=== PATIENT | female | born 1955 | race Caucasian/White ===

== ENCOUNTER → 2020-03-16 14:05 | Outpatient (BNVA) | payer OTHER, SELFPAY | PROVIDERS: PCP Internal Medicine; Visit Provider Nurse Practitioner | DX: Z76.89 Persons encountering health services in other specified circumstances (principal) ==

== ENCOUNTER 2020-07-06 07:25 | Outpatient (REF) | payer OTHER, SELFPAY ==
[2020-07-06 08:09] LABS: MANUAL DIFF FLAG NO
[2020-07-06 08:22] LABS: Basophils Percent Auto 0.5 % (0-2); Eosinophils Absolute Auto 0.1 X10*3/uL (0.0-0.4); Eosinophils Percent Auto 1.8 % (0-4); Hematocrit 40.9 % (37-47); Hemoglobin 13.2 g/dl (12.0-16.0); Imm Gran Abs Auto 0.01 X10*3/uL (0.00-0.03); Imm Gran Pct Auto 0.2 % (0.0-0.4); Lymphocytes Percent Auto 33.6 % (20-40); Mean Corpuscular HGB Conc 32.3 g/dl (31.0-35.0); Mean Corpuscular Hemoglobin 32.9 pg (27.0-33.0); Mean Platelet Volume 11.5 fL (9.4-12.3); Monocytes Absolute Auto 0.5 X10*3/uL (0.1-1.2); Monocytes Percent Auto 8.9 % (2-11); Neutrophils Absolute Auto 3.3 X10*3/uL (2.0-8.3); Platelet Count 280 X10*3/uL (160-400); Red Blood Count 4.01 X10*6/uL (4.20-5.50); Red Cell Distribution Width 12.7 % (11.0-16.0)
[2020-07-06 08:41] LABS: Alanine Aminotransferase 26 U/L (0-31); Albumin Level 4.3 g/dL (3.5-5.0); Alkaline Phosphatase 59 U/L (39-117); Anion Gap 12 (12-20); Aspartate Amino Transferase 22 U/L (5-31); Bilirubin Total 0.9 mg/dL (0.0-1.0); Blood Urea Nitrogen 14 mg/dL (9-16); Calcium 9.4 mg/dL (8.4-10.2); Carbon Dioxide 30 mmol/L (22-29); Chloride 103 mmol/L (96-108); Cholesterol 212 mg/dL; Estimated Glomerular Filt Rate > 60; Glucose Fasting 95 mg/dL (60-99); HDL Cholesterol 73 mg/dL; LDL Cholesterol Calculated 115 mg/dl; Potassium 4.5 mmol/L (3.3-5.1); Sodium 140 mmol/L (135-145); Total Protein 6.8 g/dL (6.5-8.0); Triglycerides 124 mg/dL
== END 2020-07-06 07:26 | disposition home or self-care (01) ==
LOC: HO.LAB 07:25
PROVIDERS: Visit Provider Internal Medicine
DX: Z00.00 Encounter for general adult medical examination without abnormal findings (principal)
CPT/HCPCS: 36415; 80053; 80061; 85025

== ENCOUNTER → 2020-09-02 14:03 | Outpatient (BNVA) | payer OTHER, SELFPAY | PROVIDERS: PCP Internal Medicine; Visit Provider Nurse Practitioner ==

== ENCOUNTER → 2020-10-02 14:02 | Outpatient (BNVA) | payer OTHER, SELFPAY | PROVIDERS: PCP Internal Medicine; Visit Provider Nurse Practitioner ==

== ENCOUNTER → 2020-11-17 13:22 | Outpatient (BNVA) | payer OTHER, SELFPAY | PROVIDERS: PCP Internal Medicine; Visit Provider Nurse Practitioner ==

== ENCOUNTER → 2020-11-24 08:26 | Outpatient (BNVA) | payer OTHER, SELFPAY | PROVIDERS: Visit Provider Nurse Practitioner ==

== ENCOUNTER 2020-11-30 08:51 | Outpatient (REF) | payer OTHER, SELFPAY ==
--- NOTE | ~2020-11-30 | MM_ITS ---
EXAMINATION: MM SCREENING DIGITAL BREAST TOMOSYNTHESIS, BILATERAL CLINICAL INFORMATION: Screening. Asymptomatic. The lifetime risk of breast cancer based on the Tyrer-Cuzick Model is 6%. COMPARISON: Mammography: 11/27/2019, 11/19/2018, 11/09/2017 TECHNIQUE: Digital breast tomosynthesis is performed in both the craniocaudal and mediolateral oblique views along with computer-aided detection (CAD). Synthesized 2D images are generated from the tomosynthesis. FINDINGS: There are scattered areas of fibroglandular density (ACR BI-RADS breast composition Category b). There are no significant masses, abnormal calcifications, or other abnormalities. Parenchymal pattern is similar to prior exams. There is no developing density. Low bilateral axillary tail nodes are stable. Skin contours are smooth. MM/MM tomosynthesis screening BI IMPRESSION: No mammographic evidence of malignancy. ASSESSMENT: BI-RADS 2: Benign RECOMMENDATION: Routine annual mammography screening. This patient's information was entered into a reminder system with a target due date for their next mammogram.
== END 2020-11-30 08:52 | disposition home or self-care (01) ==
LOC: HO.MAMMO 08:51
PROVIDERS: PCP Internal Medicine; Visit Provider Internal Medicine
DX: Z12.31 Encounter for screening mammogram for malignant neoplasm of breast (principal)
CPT/HCPCS: 77063; 77067

== ENCOUNTER → 2021-01-05 08:58 | Outpatient (BNVA) | payer OTHER, SELFPAY | PROVIDERS: PCP Internal Medicine; Visit Provider Nurse Practitioner ==

== ENCOUNTER → 2021-01-15 15:13 | Outpatient (BNVA) | payer OTHER, SELFPAY | PROVIDERS: PCP Internal Medicine; Visit Provider Nurse Practitioner ==

== ENCOUNTER → 2021-06-03 14:46 | Outpatient (BNVA) | payer OTHER, SELFPAY | PROVIDERS: PCP Internal Medicine; Referring Provider Internal Medicine; Visit Provider Nurse Practitioner ==

== ENCOUNTER 2021-09-24 11:02 | Outpatient (REF) | payer OTHER, SELFPAY ==
--- NOTE | ~2021-09-24 | XR_ITS ---
EXAMINATION: XR ELBOW, RIGHT CLINICAL INFORMATION: Effusion, right elbow. COMPARISON: None TECHNIQUE: AP, lateral, and oblique views of the right elbow. FINDINGS: Soft tissue swelling at the elbow. No effusion. Bones are osteopenic. No fracture or malalignment. Joint spaces are well-preserved. No osteophytes. XR/XR elbow RT min 3V IMPRESSION: Soft tissue swelling at the right elbow. No acute osseous findings or appreciable effusion.
== END 2021-09-24 11:03 | disposition home or self-care (01) ==
LOC: HO.HMGCX 11:02
PROVIDERS: Visit Provider Internal Medicine
DX: M25.421 Effusion, right elbow (principal)
CPT/HCPCS: 73080

== ENCOUNTER 2021-09-30 11:32 | Outpatient (REF) | payer OTHER, SELFPAY ==
--- NOTE | ~2021-09-30 | XR_ITS ---
EXAMINATION: XR HUMERUS, RIGHT XR FOREARM, RIGHT CLINICAL INFORMATION: Pain in right arm. COMPARISON: None TECHNIQUE: 2 views right humerus and 2 views right forearm. FINDINGS: RIGHT HUMERUS: There is no visible fracture or bony abnormality. The soft tissues are normal. RIGHT FOREARM: There is no visible fracture, dislocation or subluxation. There is mild soft tissue swelling anterior and posterior elbow joint with mild joint effusion. XR/XR forearm RT 2V IMPRESSION: Unremarkable right humerus and unremarkable right forearm.
--- NOTE | ~2021-09-30 | XR_ITS ---
EXAMINATION: XR HUMERUS, RIGHT XR FOREARM, RIGHT CLINICAL INFORMATION: Pain in right arm. COMPARISON: None TECHNIQUE: 2 views right humerus and 2 views right forearm. FINDINGS: RIGHT HUMERUS: There is no visible fracture or bony abnormality. The soft tissues are normal. RIGHT FOREARM: There is no visible fracture, dislocation or subluxation. There is mild soft tissue swelling anterior and posterior elbow joint with mild joint effusion. XR/XR humerus RT IMPRESSION: Unremarkable right humerus and unremarkable right forearm.
== END 2021-09-30 11:33 | disposition home or self-care (01) ==
LOC: HO.XRAY 11:32
PROVIDERS: PCP Internal Medicine; Visit Provider Nurse Practitioner Family
DX: M79.601 Pain in right arm (principal)
CPT/HCPCS: 73060; 73090

== ENCOUNTER → 2021-10-05 08:27 | Outpatient (BNVA) | payer OTHER, SELFPAY | PROVIDERS: PCP Internal Medicine; Visit Provider Physician Assistant | DX: Z13.89 Encounter for screening for other disorder (principal) ==

== ENCOUNTER 2021-11-02 07:00 | Outpatient (REF) | payer OTHER, SELFPAY ==
--- NOTE | ~2021-11-02 | XR_ITS ---
EXAMINATION: XR ELBOW, RIGHT CLINICAL INFORMATION: Contusion COMPARISON: Previous x-ray September 2021 TECHNIQUE: AP, lateral, and oblique views of the right elbow. FINDINGS: Bone alignment is normal. No fracture or dislocation is seen. There is no elbow joint effusion. Soft tissue swelling about the elbow appears decreased from previous exam. XR/XR elbow RT min 3V IMPRESSION: No fracture or effusion seen.
== END 2021-11-02 07:01 | disposition home or self-care (01) ==
LOC: HO.HOSX 07:00
PROVIDERS: Visit Provider Physician Assistant
DX: S50.01XA Contusion of right elbow, initial encounter (principal)
CPT/HCPCS: 73080

== ENCOUNTER 2021-11-10 07:20 | Outpatient (REF) | payer OTHER, SELFPAY ==
--- NOTE | ~2021-11-10 | MR_ITS ---
EXAMINATION: MRI WITHOUT CONTRAST ELBOW, RIGHT CLINICAL INFORMATION: Right elbow pain, effusion COMPARISON: Radiographs 11/02/2001 TECHNIQUE: MRI without contrast is performed on the right elbow FINDINGS: There is a moderate joint effusion. There is mild edema within the supracondylar distal humerus with no fracture. There is also marrow edema at the radial aspect of the radial head where there appears to be a hairline, nondisplaced fracture. There is edema extending along the flexor digitorum superficialis muscle with probable ill-defined partial tearing at the humeral insertion of the ulnar collateral ligament. The distal ligament insertion is intact. There is also edema of the distal brachialis muscle. There is a small undersurface partial tear of the common extensor tendon origin. The radial collateral ligaments appear intact. The triceps and biceps tendon insertions are intact. Minimal marrow edema of the proximal radius. MR/MR elbow RT wo con IMPRESSION: Small, hairline fracture at the lateral aspect of the radial head with a moderate joint effusion. Possible contusion of the distal humerus. Ill-defined partial tear at the humeral insertion of the ulnar collateral ligament and prominent flexor digitorum superficialis muscle strain. Also a mild strain of the distal brachialis muscle. Small undersurface partial tear of the common extensor tendon origin.
== END 2021-11-10 07:21 | disposition home or self-care (01) ==
LOC: HO.MRI 07:20
PROVIDERS: Visit Provider Physician Assistant
DX: M25.421 Effusion, right elbow (principal)
CPT/HCPCS: 73221

== ENCOUNTER 2021-12-06 08:52 | Outpatient (REF) | payer OTHER, SELFPAY ==
--- NOTE | ~2021-12-06 | MM_ITS ---
EXAMINATION: MM SCREENING DIGITAL BREAST TOMOSYNTHESIS, BILATERAL CLINICAL INFORMATION: Screening. Asymptomatic. The lifetime risk of breast cancer based on the Tyrer-Cuzick Model is 5%. COMPARISON: Mammography: 11/30/2020, 11/27/2019, 11/19/2018, 11/09/2017, 10/25/2016, 09/30/2015 TECHNIQUE: Digital breast tomosynthesis is performed in both the craniocaudal and mediolateral oblique views along with computer-aided detection (CAD). Synthesized 2D images are generated from the tomosynthesis. FINDINGS: There are scattered areas of fibroglandular density (ACR BI-RADS breast composition Category b). There is a fibronodular parenchymal pattern similar to prior studies. There are scattered shifting fibroglandular parenchymal densities from year to year related to variation in positioning. No developing density or significant changes. No abnormal calcifications. The axilla and skin contours are unremarkable. MM/MM tomosynthesis screening BI IMPRESSION: No significant changes from prior studies. ASSESSMENT: BI-RADS 2: Benign RECOMMENDATION: Routine annual mammography screening. This patient's information was entered into a reminder system with a target due date for their next mammogram.
== END 2021-12-06 08:53 | disposition home or self-care (01) ==
LOC: HO.MAMMO 08:52
PROVIDERS: Visit Provider Internal Medicine
DX: Z12.31 Encounter for screening mammogram for malignant neoplasm of breast (principal)
CPT/HCPCS: 77063; 77067

== ENCOUNTER 2021-12-21 09:00 | Outpatient (RCR) | payer OTHER, SELFPAY ==
--- NOTE | 2021-10-13 13:04 | MHC.OT.EP ---
[address] [phone] Occupational Therapy Plan of Care Date of Evaluation: 10/13/21 Diagnosis: CONTUSION OF RIGHT ELBOW Assessment: MS AZUL IS 2 WEEKS, 6 DAYS S/P MECHANICAL FALL RESULTING IN A PROXIMAL ULNAR FRACTURE OF HER DOMINANT RUE. SHE HAS BEEN PLACED IN A SLING WITH A LIFTING RESTRICTION OF NO MORE THAN A CELL PHONE. PAIN IS REPORTED 8/10 WITH USE AND 4-5/10 AT REST. SHE DISPLAYS DIFFICULTIES WITH R ELBOW FLEX/EXT, SUPINATION, WELL IMPAIRED STRENGTH AND COORDINATION. A 84% LIMITATION IS REPORTED PER THE QUICK DASH ASSESSMENT. WILL CONTINUE TO FOLLOW TO ADDRESS THE JIHAN MENTIONED ABOVE. 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 Thank you once again for your referral.
== END 2022-03-16 09:51 | disposition home or self-care (01) ==
LOC: HO.OT 09:00
PROVIDERS: PCP Internal Medicine; Visit Provider Physician Assistant
DX: S50.01XA Contusion of right elbow, initial encounter (principal); S52.001A Unspecified fracture of upper end of right ulna, initial encounter for closed fracture
CPT/HCPCS: 97033; 97110; 97140; 97165; 97530

== ENCOUNTER 2022-03-31 19:54 | Emergency (ER) | payer OTHER, MEDICARE, SELFPAY ==
--- NOTE | ~2022-03-31 | CT_ITS ---
EXAMINATION: CT HEAD WITHOUT CONTRAST (STROKE PROTOCOL) CLINICAL INFORMATION: Right-sided numbness COMPARISON: None. TECHNIQUE: Contiguous axial imaging was performed from the skull base to vertex without intravenous administration of contrast. [This CT examination was performed using dose optimization techniques as appropriate, variously including the following: *Automated exposure control *Adjustment of mA and/or kV according to patient size (this includes techniques or standardized protocols for targeted exams where dose is matched to indication/reason for exam; i.e. extremities or head) *Use of iterative reconstruction technique] DLP: 667 mGy-cm. FINDINGS: There is no evidence of acute intracranial hemorrhage or territorial infarction. No abnormal mass-effect or midline shift is seen. Light to white matter differentiation is well preserved. No extra-axial fluid collections are identified. The ventricles are normal in size. There is no abnormal attenuation within the brain parenchyma. There is no osseous abnormality. The mastoid air cells and visualized portions of the paranasal sinuses are well-aerated. CT/CT head for stroke IMPRESSION: No acute intracranial pathology. This critical result was discussed with Dr. Harman at 2046 hours on 03/31/2022. It was ascertained that the content and urgency of the report was understood at the time of direct communication.
--- NOTE | 2022-03-31 19:59 | ECG_ITS ---
Test Reason : NUMBNESS Blood Pressure : / mmHG Vent. Rate : 074 BPM Atrial Rate : 074 BPM P-R Int : 148 ms QRS Dur : 094 ms QT Int : 406 ms P-R-T Axes : 050 009 034 degrees QTc Int : 450 ms Normal sinus rhythm Normal ECG No previous ECGs available Referred By: Leta Sanchez Electronically Signed By:JULIA CHRISTENSEN MD
[2022-03-31 20:04] VITALS: BP 162/91; PULSE 91; RESP 16; TEMP 36.6; O2SAT 97; BMI 22.3
[2022-03-31 20:09] VITALS: BP 160/72; PULSE 82; RESP 18; TEMP 36.5; O2SAT 99
--- NOTE | 2022-03-31 20:20 | PC.NURSE ---
Provider was approached about INR stick for pt on the worklist. Provider Dr Harman said no pt is out of the window.
--- NOTE | 2022-03-31 20:28 | ED.NEUROSD ---
HPI - Neuro Symptoms/Deficit General Chief Complaint: Stroke Stated Complaint: Stroke? Numbness of face Time Seen by Provider: 03/31/22 20:27 Source: patient and family Mode of arrival: ambulatory History of Present Illness HPI Narrative: 66-year-old female without history of hypertension, diabetes, or cigarette smoking presents with complaints of tingling and numbness from the elbow to her fingers on her right arm and then states that she began experiencing similar symptoms into her right lower extremity as well as kamryn-oral tingling and states that has been off and on since approximately 1600. She denies any fevers, chills, smoking history, states that she has occasional alcohol use with the last episode occurring last weekend. Otherwise, she takes medications primarily for her gluten allergy. Related Data Home Medications Medication Instructions Recorded Confirmed budesonide 32 mcg/actuation nasal intranasal 09/02/20 09/30/21 spray calcium carbonate 500 mg calcium 1,000 mg PO DAILY 09/02/20 09/30/21 (1,250 mg) tablet (Calcium 500) cinnamon bark 500 mg capsule 1,000 mg PO DAILY 09/02/20 09/30/21 (Cinnamon) flaxseed oil 1,000 mg capsule 1,200 mg PO DAILY 09/02/20 09/30/21 riboflavin (vitamin B2) 400 mg 400 mg PO DAILY 09/02/20 09/30/21 tablet valacyclovir 500 mg tablet 500 mg PO DAILY 09/02/20 09/30/21 (Valtrex) alendronate 70 mg tablet 70 mg PO QWEEK 09/30/21 09/30/21 Previous Rx's Medication Instructions Recorded hydrocortisone 2.5 % topical cream 1 appl RI BID-QID PRN itching #30 07/10/20 with perineal applicator grams dicyclomine 10 mg capsule 10 mg PO QID 30 days #120 caps 06/03/21 polyethylene glycol 3350 17 17 g PO BID 30 days #1,020 grams 06/03/21 gram/dose oral powder (Miralax) wheat dextrin 3 gram/4 gram oral 6 g PO BID #248 grams 06/03/21 powder (Benefiber Sugar Free (dextrin)) diclofenac sodium 1 % topical gel 2 g topical QID #100 grams 09/30/21 (Voltaren Arthritis Pain) acetaminophen 500 mg tablet 500 mg PO Q4-6H PRN pain #30 tabs 05/19/22 naproxen 500 mg tablet 500 mg PO BID PRN pain #20 tabs 10/07/21 Allergies Allergy/AdvReac Type Severity Reaction Status Date / Time acetaminophen [Percocet] Allergy Unknown pruritus Verified 01/10/22 13:00 Iodinated Contrast Media Allergy Unknown DIZZY Verified 01/10/22 13:00 [CONTRAST, IV] SPELLS oxycodone [From PERCOCET] Allergy Unknown ITCH Verified 01/10/22 13:00 Review of Systems Review of Systems: Pertinent positives and negatives as stated in HPI and 10 point review of systems is otherwise negative. [facility] Past Medical History Source: nursing notes reviewed Medical History Physical exam Physical exam Surgical History Hx of colonoscopy Family History Family History Mother No problems noted. Father No problems noted. Social History Social History Household Members: Spouse Housing: House Alcohol intake: current Alcohol intake frequency: holidays/special occasions only Patient Tobacco Use Status: Former Tobacco user Tobacco use type: Cigarette e-Cigarette/Vaping Use: Never Used Second Hand Smoke Exposure: No Advance Directives: No Advance Directives Information Provided: No service: No Current occupational status: employed Cognitive needs: No Hearing needs: No Vision needs: No Physical Exam Vital Signs: Vital Signs: Last Vital Signs Temp 97.7 F 03/31/22 20:09 Pulse 79 03/31/22 22:33 Resp 18 03/31/22 22:33 BP 136/69 03/31/22 22:33 Pulse Ox 97 03/31/22 22:33 O2 Del Method 03/31/22 22:33 BMI result Body Mass Index 22.3 VITAL SIGNS: Reviewed. GENERAL: Well developed, well nourished, in no acute distress. HEAD: Normocephalic/atraumatic EYES: PERRLA, EOMI EARS: Ext canals without abnormality OROPHARYNX: no oral lesions noted, posterior pharynx clear NECK: Supple, no adenopathy LUNGS: Normal breath sounds. No adventitious sounds or accessory muscle use. SpO2<99> CARDIOVASCULAR: Regular rate and rhythm without noted murmurs, no JVD or lower extremity edema. ABDOMEN: Soft, non-tender, non-distended with bowel sounds. MUSCULOSKELETAL: No tenderness, deformities, or effusions noted on gross inspection. EXTREMITIES: No cyanosis, clubbing or edema. SKIN: Inspection of the skin reveals no rashes NEUROLOGIC: Alert and oriented x 4. Strength and sensation to light touch were grossly intact x 4, no facial asymmetry, no pronator drift, cranial nerves 2-12 are grossly intact. Course Course Course Narrative: 66-year-old female with presentation for waxing and waning tingling sensation changes in the right upper and right lower extremity as well as perioral without motor deficit since 1600. Patient experienced these symptoms only when she was upright and walking around and the symptoms would resolve when sitting. Review of all investigations demonstrates a macrocytosis raising suspicion for possible B12/folate deficiencies the former especially given patient's symptoms as patient had these symptoms when walking but then they would resolve when she was sitting and resting. Also the combination of perioral tingling with tingling that is primarily noted in the tips of the fingers and her toes without evidence of any elevated inflammatory markers. In addition, there are no acute findings on EKG or troponins to suggest acute cardiac etiology. I discussed with the patient these alternate possibilities that lower the likelihood of this being a primary intracranial event such as a TIA. I did discussed with the patient regarding follow-up with her primary care provider and exploring the possibility of vitamin deficiency given her underlying gluten sensitivity. Strict return precautions were discussed with the patient and she is currently completely asymptomatic. She is discharged home in stable condition. Reevaluation(s) Reevaluation #1: [facility] head CT wnl. Time: 20:46 [facility] - Neuro Symptoms/Deficit Lab Data Result diagrams: 03/31/22 20:25 03/31/22 20:25 Labs: Lab Results 03/31/22 03/31/22 03/31/22 Range/Units 20:25 20:25 20:25 WBC 8.1 (4.8-10.8) X10*3/uL RBC 3.85 L (4.20-5.50) X10*6/uL Hgb 13.1 (12.0-16.0) g/dl Hct 38.9 (37.0-47.0) % MCV 101.0 H (80.0-98.0) fL MCH 34.0 H (27.0-33.0) pg MCHC 33.7 (31.0-35.0) g/dl RDW 13.2 (11.0-16.0) % Plt Count 304 (160-400) X10*3/uL MPV 10.4 (9.4-12.3) fL Immature Gran % (Auto) 0.2 (0.0-0.4) % Neut % (Auto) 45.9 (45-73) % Lymph % (Auto) 41.5 H (20-40) % Walker % (Auto) 9.8 (2-11) % Eos % (Auto) 2.0 (0-4) % Baso % (Auto) 0.6 (0-2) % Lymph # (Auto) 3.3 (1.2-4.9) X10*3/uL Walker # (Auto) 0.8 (0.1-1.2) X10*3/uL Eos # (Auto) 0.2 (0.0-0.4) X10*3/uL Baso # (Auto) 0.1 (0.0-0.2) X10*3/uL Abs Immat Gran (auto) 0.02 (0.00-0.03) X10*3/uL Absolute Neuts (auto) 3.7 (2.0-8.3) x10*3/uL Absolute Nucleated RBC 0.000 (0.0-0.012) X10*3/uL Nucleated RBC % (auto) 0.0 (0.0-0.2) /100WBC ESR (0-20) MM/HR PT 10.1 (10.0-13.1) SEC INR 0.9 (0.9-1.1) APTT 34.7 (26.0-36.4) SEC Sodium 138 (135-145) mmol/L Potassium 4.9 (3.3-5.1) mmol/L Chloride 100 (96-108) mmol/L Carbon Dioxide 23 (22-29) mmol/L Anion Gap 20 (12-20) BUN 19 H (9-16) mg/dL Creatinine 1.35 (0.5-1.4) mg/dL Estim Creat Clear Calc 35.9 Estimated GFR 39 Random Glucose 105 (60-115) mg/dL Calcium 9.4 (8.4-10.2) mg/dL Magnesium 2.0 (1.6-2.6) mg/dL Total Bilirubin 0.3 (0.0-1.0) mg/dL Direct Bilirubin < 0.2 (0.0-0.5) mg/dL AST 29 (5-31) U/L ALT 26 (0-31) U/L Alkaline Phosphatase 58 (39-117) U/L Troponin I High Sens (<3.5-17.0) ng/L C-Reactive Protein 0.18 (< or = 0.50) mg/dL Total Protein 7.7 (6.5-8.0) g/dL Albumin 4.3 (3.5-5.0) g/dL 03/31/22 03/31/22 Range/Units 20:25 20:25 WBC (4.8-10.8) X10*3/uL RBC (4.20-5.50) X10*6/uL Hgb (12.0-16.0) g/dl Hct (37.0-47.0) % MCV (80.0-98.0) fL MCH (27.0-33.0) pg MCHC (31.0-35.0) g/dl RDW (11.0-16.0) % Plt Count (160-400) X10*3/uL MPV (9.4-12.3) fL Immature Gran % (Auto) (0.0-0.4) % Neut % (Auto) (45-73) % Lymph % (Auto) (20-40) % Walker % (Auto) (2-11) % Eos % (Auto) (0-4) % Baso % (Auto) (0-2) % Lymph # (Auto) (1.2-4.9) X10*3/uL Walker # (Auto) (0.1-1.2) X10*3/uL Eos # (Auto) (0.0-0.4) X10*3/uL Baso # (Auto) (0.0-0.2) X10*3/uL Abs Immat Gran (auto) (0.00-0.03) X10*3/uL Absolute Neuts (auto) (2.0-8.3) x10*3/uL Absolute Nucleated RBC (0.0-0.012) X10*3/uL Nucleated RBC % (auto) (0.0-0.2) /100WBC ESR 7 (0-20) MM/HR PT (10.0-13.1) SEC INR (0.9-1.1) APTT (26.0-36.4) SEC Sodium (135-145) mmol/L Potassium (3.3-5.1) mmol/L Chloride (96-108) mmol/L Carbon Dioxide (22-29) mmol/L Anion Gap (12-20) BUN (9-16) mg/dL Creatinine (0.5-1.4) mg/dL Estim Creat Clear Calc Estimated GFR Random Glucose (60-115) mg/dL Calcium (8.4-10.2) mg/dL Magnesium (1.6-2.6) mg/dL Total Bilirubin (0.0-1.0) mg/dL Direct Bilirubin (0.0-0.5) mg/dL AST (5-31) U/L ALT (0-31) U/L Alkaline Phosphatase (39-117) U/L Troponin I High Sens < 3.5 (<3.5-17.0) ng/L C-Reactive Protein (< or = 0.50) mg/dL Total Protein (6.5-8.0) g/dL Albumin (3.5-5.0) g/dL ECG Data Attestation: I personally reviewed and interpreted this ECG as follows: Prior ECG tracings: not available for review Interpretation: Normal sinus rhythm, HR-74, no STEMI, RI/QRS/QTC is within normal limits. NIH Stroke Scale Internal: Initial- Upon Arrival Level of Consciousness: Alert Level of Consciousness Questions: Answers both questions correctly Level of Consciousness Commands: Performs both tasks correctly Best Gaze: Normal Visual: No visual loss Facial Palsy: Normal Motor Arm (Right): No drift Motor Arm (Left): No drift Motor Leg (Right): No drift Motor Leg (Left): No drift Limb Ataxia: Absent Sensory: Normal Best Language: No aphasia Dysarthia: Normal Extinction and Inattention: No abnormality Score: 0 Discharge Plan Discharge Clinical Impression: Facial tingling sensation, Tingling in extremities Patient Disposition: Home, Self-Care Instructions: Paresthesia (ED) Additional Instructions: 1. Resume all home medications as prescribed. 2. Please call the office of your primary care provider in the morning to set up an appointment for re-evaluation and further outpatient management and follow-up on your vitamin B12 levels. Return to the ER for any recurrence or persistence of your symptoms especially if they include any unilateral weakness or facial asymmetry. Prescriptions: No Action acetaminophen 500 mg tablet 500 mg PO Q4-6H PRN (Reason: pain) Qty: 30 0RF naproxen 500 mg tablet 500 mg PO BID PRN (Reason: pain) Qty: 20 0RF hydrocortisone 2.5 % cream with perineal applicator 1 appl RI BID-QID PRN (Reason: itching) Qty: 30 8RF alendronate 70 mg tablet 70 mg PO QWEEK diclofenac sodium [Voltaren Arthritis Pain] 1 % gel 2 g topical QID Qty: 100 0RF Rx Instructions: apply to single elbow, wrist or hand; for hand includes palm/fingers/back of hand budesonide 32 mcg/actuation spray,non-aerosol intranasal valacyclovir [Valtrex] 500 mg tablet 500 mg PO DAILY riboflavin (vitamin B2) 400 mg tablet 400 mg PO DAILY calcium carbonate [Calcium 500] 500 mg calcium (1,250 mg) tablet 1,000 mg PO DAILY cinnamon bark [Cinnamon] 500 mg capsule 1,000 mg PO DAILY flaxseed oil 1,000 mg capsule 1,200 mg PO DAILY Rx Instructions: administer with a meal polyethylene glycol 3350 [Miralax] 17 gram/dose powder 17 g PO BID 30 Days Qty: 1020 6RF dicyclomine 10 mg capsule 10 mg PO QID 30 Days Qty: 120 6RF Benefiber Sugar Free (dextrin) 3 gram/4 gram powder 6 g PO BID Qty: 248 6RF Rx Instructions: mix into at least 4 oz water or juice before administering Referrals: Vivek Santamaria MD [Primary Care Provider] -
[2022-03-31 20:37] LABS: MANUAL DIFF FLAG NO
[2022-03-31 20:39] LABS: Basophils Absolute Auto 0.1 X10*3/uL (0.0-0.2); Basophils Percent Auto 0.6 % (0-2); Eosinophils Absolute Auto 0.2 X10*3/uL (0.0-0.4); Hematocrit 38.9 % (37.0-47.0); Hemoglobin 13.1 g/dl (12.0-16.0); Imm Gran Abs Auto 0.02 X10*3/uL (0.00-0.03); Imm Gran Pct Auto 0.2 % (0.0-0.4); Lymphocytes Absolute Auto 3.3 X10*3/uL (1.2-4.9); Lymphocytes Percent Auto 41.5 % (20-40); Mean Corpuscular HGB Conc 33.7 g/dl (31.0-35.0); Mean Platelet Volume 10.4 fL (9.4-12.3); Monocytes Absolute Auto 0.8 X10*3/uL (0.1-1.2); Monocytes Percent Auto 9.8 % (2-11); Neutrophils Absolute Auto 3.7 x10*3/uL (2.0-8.3); Neutrophils Percent Auto 45.9 % (45-73); Platelet Count 304 X10*3/uL (160-400); Red Blood Count 3.85 X10*6/uL (4.20-5.50); Red Cell Distribution Width 13.2 % (11.0-16.0); White Blood Count 8.1 X10*3/uL (4.8-10.8)
--- OUTSIDE RECORDS SUMMARY | 2022-03-31 20:47 | XMS_ITS | Continuity of Care Document ---
:1955 Author Organization [facility] Address [address] [facility], [facility] [address] [place] [address]- Care Team Providers Name Role Phone Rosalio RAMIREZ, Vivek Adkins Primary Care Physician Encounter 05/19/21 - 05/26/21 [facility] [address], [address] [id number]- Attending Physician: Alon BALTAZAR, Susana Brennan Admitting Physician: Alon BALTAZAR, Susana Brennan Referring Physician: Alon BALTAZAR, Susana Brennan Allergies, Adverse Reactions, Alerts Substance Reaction Severity Status Glutens Active Percocet 5/325 Active Medications Baylee 24 Hour Allergy oral tablet 1 tablet, By Mouth, Daily, # 30 tablet, 0 Refills, Maintenance, 12/19/18 9:19:36 EDT, Tablet Start Date: 12/19/18 Status: OrderedBenefiber = 4 Gm, By Mouth, 3 times a day, 0 Refills, Maintenance, 12/19/18 9:21:10 EDT Start Date: 12/19/18 Status: OrderedBiotin By Mouth, Daily, 0 Refills, Maintenance, 11/15/18 8:52:39 EDT Start Date: 11/15/18 Status: Orderedcalcium (as carbonate) 500 mg oral tablet, chewable 1 tablet = 500 mg, Daily, 0 Refills, Maintenance, 11/15/18 8:53:00 EDT Start Date: 11/15/18 Status: OrderedCentrum By Mouth, Daily, 0 Refills, Maintenance, 11/15/18 8:52:43 EDT Start Date: 11/15/18 Status: OrderedCentrum Silver 1 tablet, By Mouth, Daily, 0 Refills, Maintenance, 12/19/18 9:19:53 EDT Start Date: 12/19/18 Status: Orderedcinnamon 500 mg oral capsule 2 capsule = 1,000 mg, By Mouth, 2 times a day, # 100 capsule, 0 Refills, Maintenance, 12/19/18 9:20:12 EDT, Capsule Start Date: 12/19/18 Status: OrderedCompression Stockings See Instructions, # 2 pair, Refills 2, Tot. Refills 2, Maintenance, surgical, calf length 20-30 mm Hg Dx: varicose veins with pain, 12/19/18 9:33:22 EDT, Compound Start Date: 12/19/18 Status: OrderedCulturelle Digestive Health By Mouth, Daily, 0 Refills, Maintenance, 12/19/18 9:20:54 EDT Start Date: 12/19/18 Status: Orderedfluticasone 50 mcg/inh nasal spray instill 1 spray into each nostril once daily Start Date: 11/15/18 Status: OrderedMiraLax = 17 Gm, By Mouth, Daily, 0 Refills, Maintenance, 12/19/18 9:21:19 EDT Start Date: 12/19/18 Status: OrderedSuper B Complex 1 tablet, By Mouth, Daily, 0 Refills, Maintenance, 12/19/18 9:20:22 EDT Start Date: 12/19/18 Status: OrderedvalACYclovir 500 mg oral tablet Refills 0, Maintenance, 11/15/18 8:52:26 EDT Start Date: 11/15/18 Status: OrderedVitamin C By Mouth, Daily, 0 Refills, Maintenance, 11/15/18 8:52:48 EDT Start Date: 11/15/18 Status: Ordered Social History Social History Type Response Smoking Status Former smoker, quit more zach n 30 days ago entered on: 11/15/18 Sex
--- OUTSIDE RECORDS SUMMARY | 2022-03-31 20:47 | XMS_ITS | Continuity of Care Document ---
:1955 Author Organization [facility] Address [address] [place] [address]- Care Team Providers Name Role Phone Rosalio RAMIREZ, Vivek Adkins Primary Care Physician Encounter [facility] ACCT R [id number] Date(s): 07/03/19 - 07/13/19 [facility] [address] [place] [id number]- [facility] Attending Physician: AdmJason al Admitting Physician: Admtr, Jason Referring Physician: Admtr, Ar8 Allergies, Adverse Reactions, Alerts Substance Reaction Severity [...]
--- OUTSIDE RECORDS SUMMARY | 2022-03-31 20:47 | XMS_ITS | Continuity of Care Document ---
:1955 Author Organization [facility] [place] Address [address] [facility], [address] [address]- Care Team Providers Name Role Phone Rosalio RAMIREZ, Vivek Adkins Primary Care Physician Encounter 05/16/19 - 05/23/19 [facility] [address], [address] [address]- [facility] Attending Physician: Alon BALTAZAR, Susana Admitting Physician: Alon BALTAZAR, Susana Referring Physician: Alon BALTAZAR, Susana Allergies, Adverse Reactions, Alerts Substance Reaction Severity [...] 8:52:48 EDT Start Date: 11/15/18 Status: Ordered Results Radiology Reports Exam Date Time Procedure Performing Provider Status 05/16/19 10:18 AM Dexa Bone Density (Axial) Shannon Schaefer (Verified) Notes:(Dexa Bone Density (Axial)) Reason For Exam: menopausalRESULT: DEXA BONE DENSITY (AXIAL) Bone Density Report Name: AQUILINO AZUL Age: 63 Sex: Female Ethnicity: White Date of : 1955 Indication: POSTMENOPAUSAL. Referring Provider: SUSANA HOWARD NP Study: Bone densitometry was performed. Exam Date: May 16, 2019 Accession number: [id number] Bone Density: Region BMD T-score Z-score Classification AP Spine (L1-L4) 0.780 -2.4 -0.8 Osteopenia Femoral Neck (Right) 0.609 -2.2 -0.8 Osteopenia Total Hip (Right) 0.750 -1.6 -0.5 Osteopenia World Health Organization criteria for BMD impression classify patients as: Normal (T-score at or above -1.0), Osteopenia (T-score between -1.0 and -2.5), or Osteoporosis (T-score at or below -2.5). 10-year Fracture Risk(1): Major Osteoporotic Fracture 10% Hip Fracture 1.6% Reported Risk Factors: [place] (), Neck BMD=0.609, BMI=22.3 (1) FRAX(R) Version 3.00. Fracture probability calculated for an untreated patient. Fracture probability may be lower if the patient has received treatment. Previous Exams: Region Exam Age BMD T-score BMD Change BMD Change Date g/cm2 vs Baseline vs Previous AP Spine(L1-L4) 05/16/2019 63 0.780 -2.4 -4.1%* -2.1% 05/11/2017 61 0.797 -2.3 -2.0% -2.0% 07/18/2013 57 0.813 -2.1 Total Hip(Right) 05/16/2019 63 0.750 -1.6 -1.4% -2.7% 05/11/2017 61 0.771 -1.4 1.3% 1.3% 07/18/2013 57 0.761 -1.5 Femoral Neck(Right) 05/16/2019 63 0.609 -2.2 -2.8% 1.8% 05/11/2017 61 0.598 -2.3 -4.5% -4.5% 07/18/2013 57 0.627 -2.0 *Denotes significance at 95% confidence level, LSC for AP Spine = 0.022 g/cm2, LSC for Total Hip = 0.027 g/cm2 Clinical Information Provided by Patient: Has used the following medications: Vitamin D, Calcium Patient maximum height was 64.0 Menopause Age: 46 Onset of menses at age 13 Number of children 2 Impression: The patient has osteopenia as determined by WHO criteria. Based on the results of the patient???s bone density assessment, the risk of future fracture increases approximately two fold for each 1.0 SD decrease in T-score. However, low BMD is not the only risk factor for a future fragility fracture. Other clinical risk factors for osteoporotic fracture should be considered in ascertaining this patient???s future fracture risk including the patient???s age, previous osteoporotic (fragility) fracture, estrogen deficiency/hypogonadism, risk of falling, use of medications implicated in bone loss (glucocorticoids), family history of osteoporotic fracture, diseases and conditions associated with bone loss, low body weight, smoking, high bone turnover, etc. Combining low BMD and other clinical risk factors result in a more precise assessment of future fracture risk. Secondary causes for osteoporosis, such as osteomalacia, other metabolic bone disorders, and diseases and conditions that may contribute to accelerated bone loss may have to be considered depending on the clinical situation. A repeat bone density assessment should be considered in two years. Reported by: Emery Bee MD on 05/23/2019 10:23:00 AM. Dictated By: Emery Bee MD Dictated Date/Time: 05/23/19 10:28 a Reviewed By: Emery Bee MD Signed By: Emery Bee MD Signed Date/Time: 05/23/19 10:28 am Transcribed By: NAMRATA Transcribed Date/Time: 05/23/19 10:28 am Social History Social History Type Response Smoking Status Former smoker, quit more zach n 30 days ago entered on: 11/15/18 Sex
--- OUTSIDE RECORDS SUMMARY | 2022-03-31 20:47 | XMS_ITS | Continuity of Care Document ---
:1955 Author Organization [facility] Address [address] [place] [id number]- Care Team Providers Name Role Phone Rosalio RAMIREZ, Vivek Adkins Primary Care Physician [place] [facility] [place] 07/01/19 - 07/11/19 [facility] [address] [place] [id number]- [facility] Attending Physician: Jason Warren Admitting Physician: AdmtrJason Referring Physician: AdmtrJason Allergies, Adverse Reactions, Alerts Substance Reaction Severity [...]
[2022-03-31 20:57] LABS: INTERNATIONAL NORM RATIO 0.9 (0.9-1.1); Prothrombin Time 10.1 SEC (10.0-13.1)
[2022-03-31 21:00] LABS: Partial Thromboplastin Time 34.7 SEC (26.0-36.4)
[2022-03-31 21:03] LABS: Stroke Lab Use COMPLETE
[2022-03-31 21:07] LABS: Troponin-I High Sensitivity < 3.5 ng/L (<3.5-17.0)
[2022-03-31 21:09] LABS: Alanine Aminotransferase 26 U/L (0-31); Albumin Level 4.3 g/dL (3.5-5.0); Alkaline Phosphatase 58 U/L (39-117); Anion Gap 20 (12-20); Aspartate Amino Transferase 29 U/L (5-31); Bilirubin Direct < 0.2 mg/dL (0.0-0.5); Bilirubin Total 0.3 mg/dL (0.0-1.0); Blood Urea Nitrogen 19 mg/dL (9-16); Calcium 9.4 mg/dL (8.4-10.2); Carbon Dioxide 23 mmol/L (22-29); Chloride 100 mmol/L (96-108); Creatinine Clr Calc Pharmacy 35.9; Estimated Glomerular Filt Rate 39; Glucose Random 105 mg/dL (60-115); Potassium 4.9 mmol/L (3.3-5.1); Sodium 138 mmol/L (135-145); Total Protein 7.7 g/dL (6.5-8.0)
[2022-03-31 21:25] LABS: Erythrocyte Sedimentation Rate 7 MM/HR (0-20)
[2022-03-31 21:27] LABS: C Reactive Protein 0.18 mg/dL (< or = 0.50)
[2022-03-31 22:33] VITALS: BP 136/69; PULSE 79; RESP 18; O2SAT 97
--- NOTE | 2022-03-31 23:58 | PC.NURSE ---
Pt's at bedside. Pt V/S were stable, and she is a/o x 5. Pt's lab work were within the normal limit. Pt is able to ambulate independently.
--- NOTE | 2022-03-31 23:59 | PC.NURSE ---
Pt neurological assessment was within the normal, pt had a + skin turgor, bilaterally strength in the upper and lower extremities. PERRLA reaction 3mm. pt smile symmetrical.
[2022-04-01 08:28] LABS: Vitamin B12 343 pg/mL (200-900)
== END 2022-04-01 00:01 | disposition home or self-care (01) ==
PROVIDERS: Physician Assistant; Emergency Provider Student in an Organized Health Care Education/Training Program; PCP Internal Medicine
DX: R20.2 Paresthesia of skin (principal)
CPT/HCPCS: 36415; 70450; 80048; 80076; 82607; 83735; 84484; 85025; 85610; 85652; 85730; 86140; 93005; 99284

== ENCOUNTER 2022-07-28 11:00 | Outpatient (REF) | payer MEDICARE, SELFPAY ==
--- NOTE | ~2022-07-28 | MR_ITS ---
EXAMINATION: MR BRAIN WITHOUT AND WITH CONTRAST CLINICAL INFORMATION: Tinnitus. COMPARISON: Head CT 03/31/2022. TECHNIQUE: Multiplanar, multisequence imaging of the brain was performed before and after the intravenous administration of 6 mL of Gadavist. FINDINGS: The inner ear structures including the cochlea, vestibules, and semicircular canals exhibit preserved CSF signal intensity with no pathologic enhancement. The vestibular aqueducts are not enlarged. Cranial nerves VII and VIII complexes are normal in morphology. No enhancing cerebellopontine angle/retrocochlear lesion. Small focus of plaque-like dural enhancement with associated mineralization along the right frontal convexity measuring up to 12 x 6 mm compatible with a small meningioma (series 11 image ). There is no significant mass effect or subjacent edema. There is mild opacification of the bilateral mastoids. Mild nonspecific foci of T2/FLAIR hyperintensity are seen within the cerebral white matter. MR/MR head/brain wo/w con IMPRESSION: 1. No vestibular schwannoma or retrocochlear lesion. 2. Incidentally noted small meningioma along the right frontal convexity measuring up to 12 mm.
== END 2022-07-28 11:01 | disposition home or self-care (01) ==
LOC: HO.MRI 11:00
PROVIDERS: PCP Internal Medicine; Visit Provider Otolaryngology
DX: H90.3 Sensorineural hearing loss, bilateral (principal); H93.A3 Pulsatile tinnitus, bilateral
CPT/HCPCS: 70553; A9585

== ENCOUNTER → 2022-08-31 12:54 | Outpatient (BNVA) | payer MEDICARE, SELFPAY | PROVIDERS: PCP Internal Medicine; Visit Provider Nurse Practitioner | DX: K58.2 Mixed irritable bowel syndrome (principal) | CPT/HCPCS: 99212 ==

== ENCOUNTER 2022-12-21 08:27 | Outpatient (REF) | payer MEDICARE, SELFPAY ==
--- NOTE | ~2022-12-21 | MM_ITS ---
EXAMINATION: MM SCREENING DIGITAL BREAST TOMOSYNTHESIS, BILATERAL CLINICAL INFORMATION: Screening. Asymptomatic. The lifetime risk of breast cancer based on the Tyrer-Cuzick Model is 4.7%. COMPARISON: Mammography: This study is compared with prior exams dating back to 2018. TECHNIQUE: Digital breast tomosynthesis is performed in both the craniocaudal and mediolateral oblique views along with computer-aided detection (CAD). Synthesized 2D images are generated from the tomosynthesis. FINDINGS: There are scattered areas of fibroglandular density (ACR BI-RADS breast composition Category b). There are no significant masses, abnormal calcifications, or other abnormalities. MM/MM tomosynthesis screening BI IMPRESSION: No mammographic evidence of malignancy. ASSESSMENT: BI-RADS BI-RADS 1 - Negative RECOMMENDATION: Routine annual mammography screening. 1 year F/U This examination should not preclude the clinical evaluation of a suspicious palpable abnormality. This patient's information was entered into a reminder system with a target due date for their next mammogram.
== END 2022-12-21 08:28 | disposition home or self-care (01) ==
LOC: HO.MAMMO 08:27
PROVIDERS: PCP Internal Medicine; Visit Provider Internal Medicine
DX: Z12.31 Encounter for screening mammogram for malignant neoplasm of breast (principal)
CPT/HCPCS: 77063; 77067

== ENCOUNTER → 2022-12-21 08:45 | Outpatient (BNV) | payer MEDICARE, SELFPAY | PROVIDERS: PCP Internal Medicine; Visit Provider Radiology Diagnostic Radiology | DX: Z12.31 Encounter for screening mammogram for malignant neoplasm of breast (principal) | CPT/HCPCS: 77063; 77067 ==

== ENCOUNTER 2023-03-02 09:56 | Outpatient (AMB) | payer MEDICARE, SELFPAY ==
--- NOTE | 2023-03-02 10:03 | A.OFFVIS_ITS ---
Intake Vital Signs 03/02/23 10:06 Height 5 ft 2 in Weight 132 lb 11.492 oz BMI 24.3 BP 133/68 Blood Pressure Location Rt brachial Position Sitting Pulse 66 Intake Visit Reasons: 6 mnth f/u Intake Note: Patient presents today to in office visit for 6 months follow up of constipation. CC: Patient states she has been doing very good and denies having any new GI symptoms or concerns today. [employer]ician Required: No Accompanied by: Self / Same As Patient Allergies acetaminophen [Percocet] Allergy (Unknown, Verified 03/02/23 10:08) pruritus Iodinated Contrast Media [CONTRAST, IV] Allergy (Unknown, Verified 03/02/23 10:08) DIZZY SPELLS oxycodone [From PERCOCET] Allergy (Unknown, Verified 03/02/23 10:08) ITCH HPI 6 mnth f/u HPI Details Assessment & Plan (1) Irritable bowel syndrome with both c onstipation and diarrhea: Code(s): K58.2 - Mixed irritable bowel syndrome Plan: She continues on her dicyclomine and is using it more aggressively when needed. She is overall 80% better than before I saw you. The only new med was lexapro and she had some increased cic when started but this is getting better. . She continues to us beano, fiber and probiotic. We discuss strategies for coping with CIC if her meds are increased again including increasing fiber and adding something like coconut oil . She had an episode of tingling in her fingers and toes, was worked up and no CVA and saw neurologist and he dx'ed anxiety - thus the lexapro. She is retired now and this also helps. ROV 6 mos. Medications: Refilled dicyclomine 10 mg PO QID 30 d ays 120 caps 6RF R10.9 - Unspecifie d abdominal pain TODAY'S VISIT She is doing very well!! she takes 2 bentyl a day and uses a third if has a bad day. Stools vary from formed to smaller, rockier balls....no diarrhea. It helps with the pain/discomfort as well. She is quite happy with this. She also continues on her probiotic, beano and fiber/Benefiber. She also has prn MIralax, which she will stop if the stools get too loose. She also avoids gluten, but at times she will have problems when she goes out to eat. ROV 6 mos. [facility] Medical History Physical exam Physical exam Surgical History Hx of colonoscopy Family History Mother No problems noted. Father No problems noted. Social History Household Members: Spouse Housing: House Alcohol intake: current Alcohol intake frequency: holidays/special occasions only Patient Tobacco Use Status: Former Tobacco user Tobacco use type: Cigarette e-Cigarette/Vaping Use: Never Used Second Hand Smoke Exposure: No service: No Current occupational status: employed Cognitive needs: No Hearing needs: No Vision needs: No Review of Systems Const Denies fatigue, Denies fever(s), Denies night sweats, Denies poor appetite and Denies weight loss Eyes Details: glasses Reports requires corrective lenses ENT Reports Normal hearing present, Denies dental pain, Denies dysphagia, Denies hearing loss, Denies mouth pain, Denies odynophagia, Denies throat swelling, Denies tongue swelling and Reports other (Dentition adequate) Card Reports no additional complaints Resp Reports no additional complaints GI Denies abdominal pain, Denies melena, Denies bloating, Denies hematochezia, Denies constipation, Reports GI cramping, Denies dysphagia, Denies excessive flatus, Denies early satiety, Denies heartburn, Denies diarrhea, Reports loose stools, Denies nausea, Denies odynophagia, Denies vomiting and Denies hematemesis Skin/Breast Denies pruritus, Denies lesions, Denies rash and Denies jaundice Neuro Reports Normal hearing present and Denies Abnormal speech present Endo Denies fatigue Aller/Immun Denies throat swelling and Denies tongue swelling Physical Exam Vital Signs: Last Vital Signs Pulse 66 03/02/23 10:06 BP 133/68 03/02/23 10:06 BMI result Body Mass Index 24.3 Const General: cooperative, no acute distress, well developed and well groomed Nutritional Appearance: average body habitus and well nourished Orientation/consciousness: oriented to person, oriented to place and oriented to time Limitations: No language barrier HEENT Head: Yes normocephalic and Yes atraumatic Eyes General: appearance normal, both eyes and all related structures Pupils: Equal, round and reactive pupils present Neck Neck: Yes normal visual inspection and Yes no lymphadenopathy Thyroid: Thyroid normal Resp Effort & Inspection: normal respiratory effort and able to speak in complete sentences Auscultation: clear to auscultation bilaterally Cardio Rate: regular rate Rhythm: regular rhythm Heart sounds: Normal, physiologic split S2 sound present Peripheral pulses: radial pulses present and posterior tibial pulses present GI Inspection: No distended and No Abdominal panniculus present Palpation (GI): Soft to palpation, nontender, no guarding, not rigid and No hepatosplenomegaly present Percussion: Yes normal to percussion Auscultation: normal bowel sounds Rectal Exam - Female: deferred Skin General skin exam: no rashes or lesions noted, turgor normal, skin not dry, no jaundice, No spider nevi and no striae Rashes: no rashes Nails: normal Neuro General: oriented to person, oriented to place and oriented to time Cranial nerves: Yes Equal, round and reactive pupils present and Yes Normal hearing present Speech: No Abnormal speech present Extrem General: Yes normal to inspection, No clubbing, No cyanosis and No edema Psych Appearance: grossly normal and well kempt Mental Status: mental status grossly normal Speech and movement: Normal speech and movement present Affect: normal affect Attitude: cooperative Thought process: Normal thought process present and not confabulating Thought content: Normal thought content present Insight: Good insight present (Psych) Judgement: Good judgement present (Psych) Assessment & Plan Assessment & Plan (1) Irritable bowel syndrome with both constipation and diarrhea: Code(s): K58.2 - Mixed irritable bowel syndrome Plan: She is doing very well!! she takes 2 bentyl a day and uses a third if has a bad day. Stools vary from formed to smaller, rockier balls....no diarrhea. It helps with the pain/discomfort as well. She is quite happy with this. She also continues on her probiotic, beano and fiber/Benefiber. She also has prn MIralax, which she will stop if the stools get too loose. She also avoids gluten, but at times she will have problems when she goes out to eat. ROV 6 mos. Medications: New simethicone (Gas-X Extra Strength) 125 mg PO BID-QID 90 caps 6RF Refilled dicyclomine 10 mg PO QID 30 days 120 caps 6RF R10.9 - Unspecified abdominal pain polyethylene glycol 3350 (Miralax) 17 grams PO BID 30 days 1,020 grams 6RF K59.00 - Constipation, unspecified Coding Level of Care Code Est Pt Level 3 (29398) Diagnoses Irritable bowel syndrome with both constipation and diarrhea K58.2
[2023-03-02 10:06] VITALS: BP 133/68; PULSE 66; BMI 24.3
== END 2023-03-02 10:32 | disposition home or self-care (01) ==
PROVIDERS: Visit Provider Nurse Practitioner
DX: K58.2 Mixed irritable bowel syndrome (principal)
CPT/HCPCS: 99213

== ENCOUNTER → 2023-03-02 09:56 | Outpatient (BNVA) | payer MEDICARE, SELFPAY | PROVIDERS: Visit Provider Nurse Practitioner | DX: K58.2 Mixed irritable bowel syndrome (principal) | CPT/HCPCS: 99212 ==

== ENCOUNTER 2023-07-10 07:30 | Outpatient (REF) | payer MEDICARE, SELFPAY ==
[2023-07-10 09:02] LABS: Cholesterol 210 mg/dL (<200); HDL Cholesterol 61 mg/dL (>40); LDL Cholesterol Calculated 117 mg/dL (<100); Triglycerides 164 mg/dL (<150)
== END 2023-07-10 07:31 | disposition home or self-care (01) ==
LOC: HO.LAB 07:30
PROVIDERS: PCP Internal Medicine; Visit Provider Internal Medicine
DX: E78.5 Hyperlipidemia, unspecified (principal)
CPT/HCPCS: 36415; 80061

== ENCOUNTER 2023-07-18 09:43 | Outpatient (AMB) | payer MEDICARE, SELFPAY ==
[2023-07-18 09:51] VITALS: BP 124/60; PULSE 70; O2SAT 94; BMI 25.4
--- NOTE | 2023-07-18 09:51 | MHC.PC.OV ---
Vital Signs 07/18/23 09:51 Height 5 ft 2 in Weight 139 lb BMI 25.4 BP 124/60 Blood Pressure Location Lt brachial Position Sitting Pulse 70 Pulse Source Pulse Oximeter Pulse Oximetry (%) 94 Oxygen Delivery Method Room Air Intake Visit Reasons: Annual Exam Orthotist Required: No Dentures Lab Technician: Not Required per policy Accompanied by: Self / Same As Patient Allergies acetaminophen [Percocet] Allergy (Unknown, Verified 07/18/23 09:52) pruritus Iodinated Contrast Media [CONTRAST, IV] Allergy (Unknown, Verified 07/18/23 09:52) DIZZY SPELLS oxycodone [From PERCOCET] Allergy (Unknown, Verified 07/18/23 09:52) ITCH Medication List - Last Reconciled 07/18/23 by Vivek Santamaria MD alendronate 70 mg PO QWEEK budesonide 32 mcg/actuation 1 spray intranasal BID calcium carbonate (Calcium 500) 1,000 mg PO DAILY dicyclomine 10 mg PO QID 30 days escitalopram oxalate 10 mg PO DAILY hydrocortisone 2.5% 1 appl [place] BID-QID PRN polyethylene glycol 3350 (Miralax) 17 grams PO BID 30 days riboflavin (vitamin B2) 400 mg PO DAILY simethicone (Gas-X Extra Strength) 125 mg PO BID-QID [super digestive enzymes 1 cap PO DAILY] valacyclovir (Valtrex) 500 mg PO DAILY wheat dextrin (Benefiber Sugar Free (dextrin)) 6 grams PO BID Tobacco use date assessed: 07/18/23 Fall risk assessment: No Falls in past year Last assessed Fall Risk: 07/18/23 Dental Screening Dental Screen Date: 07/18/23 Did you have a dental visit in the last 12 months?: Yes Did you have a dental problem in the last 6 months where you did not have access to dental care?: No Was dental information given to patient?: Patient has dentist HPI Annual Exam HPI Details osteoporosis on rx; mammos and colonoscopies ncd [facility] Medical History Physical exam Physical exam Surgical History Hx of colonoscopy Family History Mother No problems noted. Father No problems noted. Social History Household Members: Spouse Housing: House Alcohol intake: current Alcohol intake frequency: holidays/special occasions only Patient Tobacco Use Status: Former Tobacco user Tobacco use type: Cigarette e-Cigarette/Vaping Use: Never Used Second Hand Smoke Exposure: No service: No Current occupational status: employed Cognitive needs: No Hearing needs: No Vision needs: Yes Questionnaire PHQ-9 Over the last 2 weeks, how often have you been bothered by any of the following problems? 1. Little interest or pleasure in doing things: not at all 2. Feeling down, depressed, or hopeless: not at all 3. Trouble falling or staying asleep, or sleeping too much: not at all 4. Feeling tired or having little energy: not at all 5. Poor appetite or overeating: not at all 6. Feeling bad about yourself - or that you are a failure or have let yourself or your family down: not at all 7. Trouble concentrating on things, such as reading the newspaper or watching television: not at all 8. Moving or speaking so slowly that other people could have noticed. Or the opposite - being so fidgety or restless that you have been moving around a lot more than usual: not at all 9. Thoughts that you would be better off or of hurting yourself in some way: not at all Total score: 0 Depression Screening Interpretation: Negative Depression Screening Done: Yes 00493 - PHQ-9 Billing: Yes Source: Developed by Drs. Shiraz Roach, Regi Anaya, Jaime Lopez and colleagues, with an educational krystin from [employer]. Thrive Questionnaire Date Thrive assessed: 07/18/23 I am a: Patient What is your living situation today?: I have a steady place to live Within the past 12 months, did the food you bought not last and you didn't have the money to get more?: Never true Within the past 12 months, did you worry whether your food would run out before you got money to buy more?: Never true Do you have trouble paying for medicines?: No Do you have trouble getting transportation to medical appointments?: No Do you have trouble paying your heating and electricity bill?: No Do you have trouble taking care of your child, family member or friend?: No Do you have trouble with day-to-day activities such as bathing, preparing meals, shopping, managing finances, etc.?: No Are you currently unemployed and looking for a job?: No Are you interested in more education?: No Please select the resources that you would like help with: None THRIVE Score: 0 AUDIT C Alcohol Use Questionnaire (AUDIT-C) 1. How often do you have a drink containing alcohol?: Monthly or less 2. How many drinks containing alcohol do you have on a typical day when you are drinking?: 1 or 2 3. How often do you have six or more drinks on one occasion?: Never Total Score: 1 Score Reviewed/Action Taken: Yes SAMEER-7 AMB Questionnaire SAMEER-7 Date SAMEER - 7 assessed: 07/18/23 Feeling nervous, anxious, or on edge: 0 = Not at all Not being able to stop or control worryin = Not at all Worrying too much about different things: 0 = Not at all Trouble relaxin = Not at all Being so restless that it is hard to sit still: 0 = Not at all Becoming easily annoyed or irritable: 0 = Not at all Feeling afraid as if something awful might happen: 0 = Not at all Total SAMEER-7 score (0-4 normal; 5-9 mild; 10-14 moderate; 15-21 severe): 0 Source: Developed by Drs. Shiraz Roach, Regi Anaya, Jaime Lopez and colleagues, with an educational krystin from [employer]. SAMEER-7 Assessment Billing SAMEER-7 Assessment Tool: SAMEER-7 Assessment 51325 Review of Systems Const Denies chills, Denies fatigue, Denies headache(s) and Denies weight loss Eyes Denies change in vision, Denies diplopia and Denies eye pain ENT Denies vertigo, Denies dizziness, Denies headache(s) and Denies nasal discharge Card Denies chest pain, Denies rapid heart rate and Denies dyspnea on exertion Resp Denies chest congestion, Denies cough, Denies pain with cough and Denies dyspnea on exertion GI Denies abdominal pain, Denies hematochezia and Denies change in bowel habits Musc Denies myalgias, Denies arthralgias and Denies joint swelling Skin/Breast Denies lesions and Denies unusual bruising Neuro Denies vertigo, Denies dizziness, Denies headache(s) and Denies focal weakness Endo Denies fatigue Physical exam (Primary Care) Vital Signs: Last Vital Signs Pulse 70 07/18/23 09:51 BP 124/60 07/18/23 09:51 Pulse Ox 94 07/18/23 09:51 Oxygen Delivery Method Room Air 07/18/23 09:51 BMI result Body Mass Index 25.4 Tobacco/Smoking Status: Tobacco use Status Tobacco use date assessed 07/18/23 07/18/23 09:53 Patient Tobacco Use Status Former Tobacco user 07/18/23 09:53 Tobacco use type Cigarette 07/18/23 09:53 e-Cigarette/Vaping Use Never Used 07/18/23 09:53 PHQ-9: PHQ-9 Score PHQ-9: Total score 0 07/18/23 09:53 Depression Screening Interpretation: Negative Thrive Assessment: Date of Thrive Assessment Date Thrive assessed 07/18/23 07/18/23 09:53 Const General: cooperative, healthy appearing and no acute distress Orientation/consciousness: oriented to person, oriented to place and oriented to time HENMT Head: Yes normal to inspection, Yes normocephalic and Yes atraumatic Mouth: Normal oral and palatal mucosa present and tongue normal Throat: Yes posterior oropharynx normal and Yes uvula midline Eyes General: appearance normal, both eyes and all related structures Neck Neck: Yes normal visual inspection, Yes full ROM and Yes no lymphadenopathy Thyroid: Thyroid normal Carotids: normal carotid upstroke Chest Chest palpation & inspection: normal inspection of the chest Resp Effort & Inspection: normal respiratory effort and able to speak in complete sentences Auscultation: clear to auscultation bilaterally Cardio Jugular venous distension: no JVD Palpation: normal PMI Rate: regular rate Rhythm: regular rhythm Heart sounds: S1 normal heart sound present and S2 normal heart sound present GI Inspection: Yes normal to inspection Palpation (GI): Soft to palpation and No hepatosplenomegaly present Auscultation: normal bowel sounds General: Yes no CVA tenderness Back/Spine/Pelvis Back: no CVA tenderness Skin General skin exam: no rashes or lesions noted Neuro General: oriented to person, oriented to place and oriented to time Extrem General: Yes normal to inspection and Yes full ROM Assessment and Plan Assessment & Plan (1) Physical exam: Code(s): Z00.00 - Encounter for general adult medical examination without abnormal findings Plan: stable; do labs (2) Osteoporosis: Code(s): M81.0 - Age-related osteoporosis without current pathological fracture Plan: stable; samerx Orders: Orders Lipid Panel Today E78.5 - Hyperlipidemia, unspecified Thyroid Stimulating Hormone Today E03.9 - Hypothyroidism, unspecified Complete Blood Count Auto Diff Today D64.9 - Anemia, unspecified Comprehensive [place]. Panel Fast Today N28.9 - Disorder of kidney and ureter, unspecified Medications: Refilled budesonide 32 mcg/actuation 1 spray intranasal BID 8.43 mL 8RF alendronate 70 mg PO QWEEK 20 tabs 4RF Coding Level of Care Code Est Pt Prev Care >65y(50034) Diagnoses Physical exam Z00.00 Osteoporosis M81.0 Additional Codes SAMEER-7 Assessment Billing - SAMEER-7 Assessment Tool: SAMEER-7 Assessment 06365 ([id number])
== END 2023-07-18 10:15 | disposition home or self-care (01) ==
PROVIDERS: Visit Provider Internal Medicine
DX: Z00.00 Encounter for general adult medical examination without abnormal findings (principal); M81.0 Age-related osteoporosis without current pathological fracture
CPT/HCPCS: 99397

== ENCOUNTER 2023-09-26 08:43 | Outpatient (AMB) | payer MEDICARE, SELFPAY ==
[2023-09-26 08:46] VITALS: BP 141/75; PULSE 63; BMI 25.8
--- NOTE | 2023-09-26 08:46 | A.OFFVIS_ITS ---
Vital Signs 09/26/23 08:46 Height 5 ft 2 in Weight 141 lb 1.533 oz BMI 25.8 BP 141/75 H Blood Pressure Location Lt brachial Position Sitting Pulse 63 Intake Visit Reasons: Follow up 6 months Intake Note: Lindsey returns in 6 months follow up of IBS. CC: Patient states she is doing ok and she has her moments but that's normal. Denies any new GI concerns today. Home And Family Living Professor Required: No Accompanied by: Self / Same As Patient Allergies acetaminophen [Percocet] Allergy (Unknown, Verified 09/26/23 08:52) pruritus Iodinated Contrast Media [CONTRAST, IV] Allergy (Unknown, Verified 09/26/23 08:52) DIZZY SPELLS oxycodone [From PERCOCET] Allergy (Unknown, Verified 09/26/23 08:52) ITCH HPI HPI Follow up 6 months: Details: Assessment & Plan (1) Irritable bowel syndrome with both constipation and diarrhea: Code(s): K58.2 - Mixed irritable bowel syndrome Plan: She is doing very well!! she takes 2 bentyl a day and uses a third if has a bad day. Stools vary from formed to smaller, rockier balls....no diarrhea. It helps with the pain/discomfort as well. She is quite happy with this. She also continues on her probiotic, beano and fiber/Benefiber. She also has prn MIralax, which she will stop if the stools get too loose. She also avoids gluten, but at times she will have problems when she goes out to eat. ; ROV 6 mos. Medications: New simethicone (Gas-X Extra Strength) 125 mg PO BID-QID 90 caps 6RF Refilled dicyclomine 10 mg PO QID 30 days 120 caps 6RF R10.9 - Unspecified abdominal pain polyethylene glycol 3350 (Miralax) 17 grams PO BID 30 days 1,020 grams 6RF K59.00 - Constipation, unspecified TODAY'S VISIT She continues to do well. However she is taking more bentyl for IBS and we will increase from 10mg to 20mg. She also is having HB when she bends down to garden, and I will rx pepcid r/t its fast onset of action for prn use. She continues on her MiraLax as needed and her simethicone for gas and bloating. She still has some bowel irritability and bloating but is generally better with more consistent BM's and less pain. Her twin sister has similar problems. Rov 6 MOS. PFS Medical History Physical exam Physical exam Surgical History Hx of colonoscopy Family History Mother No problems noted. Father No problems noted. Social History Household Members: Spouse Housing: House Alcohol intake: current Alcohol intake frequency: holidays/special occasions only Patient Tobacco Use Status: Former Tobacco user Tobacco use type: Cigarette e-Cigarette/Vaping Use: Never Used Second Hand Smoke Exposure: No service: No Current occupational status: employed Cognitive needs: No Hearing needs: No Vision needs: Yes Review of Systems Const Denies fatigue, Denies fever(s), Denies night sweats, Denies poor appetite and Denies weight loss Eyes Details: glasses Reports requires corrective lenses ENT Reports Normal hearing present, Denies dental pain, Denies dysphagia, Denies hearing loss, Denies mouth pain, Denies odynophagia, Denies throat swelling, Denies tongue swelling and Reports other (Dentition adequate) Card Reports no additional complaints Resp Reports no additional complaints GI Details: Denies abdominal pain, Denies melena, Reports bloating, Denies hematochezia, Denies constipation, Reports GI cramping, Denies dysphagia, Denies excessive flatus, Denies early satiety, Reports heartburn, Denies diarrhea, Denies nausea, Denies odynophagia, Denies vomiting and Denies hematemesis Skin/Breast Denies pruritus, Denies lesions, Denies rash and Denies jaundice Neuro Reports Normal hearing present and Denies Abnormal speech present Endo Denies fatigue Aller/Immun Denies throat swelling and Denies tongue swelling Physical Exam Vital Signs: Last Vital Signs Pulse 63 09/26/23 08:46 BP 141/75 H 09/26/23 08:46 BMI result Body Mass Index 25.8 Const General: cooperative, no acute distress, well developed and well groomed Nutritional Appearance: well nourished and overweight Orientation/consciousness: oriented to person, oriented to place and oriented to time Limitations: No language barrier HEENT Head: Yes normocephalic and Yes atraumatic Eyes General: appearance normal, both eyes and all related structures Pupils: Equal, round and reactive pupils present Neck Neck: Yes normal visual inspection and Yes no lymphadenopathy Thyroid: Thyroid normal Resp Effort & Inspection: normal respiratory effort and able to speak in complete sentences Auscultation: clear to auscultation bilaterally Cardio Rate: regular rate Rhythm: regular rhythm Heart sounds: Normal, physiologic split S2 sound present Peripheral pulses: radial pulses present and posterior tibial pulses present GI Inspection: No distended and No Abdominal panniculus present Palpation (GI): Soft to palpation, nontender, no guarding, not rigid and No hepatosplenomegaly present Percussion: Yes normal to percussion Auscultation: normal bowel sounds Rectal Exam - Female: deferred Skin General skin exam: no rashes or lesions noted, turgor normal, skin not dry, no jaundice, No spider nevi and no striae Rashes: no rashes Nails: normal Neuro General: oriented to person, oriented to place and oriented to time Cranial nerves: Yes Equal, round and reactive pupils present and Yes Normal hearing present Speech: No Abnormal speech present Extrem General: Yes normal to inspection, No clubbing, No cyanosis and No edema Psych Appearance: grossly normal and well kempt Mental Status: mental status grossly normal Speech and movement: Normal speech and movement present Affect: normal affect Attitude: cooperative Thought process: Normal thought process present and not confabulating Thought content: Normal thought content present Insight: Fair insight present (Psych) Judgement: Fair judgement present (Psych) Assessment & Plan Assessment & Plan (1) Irritable bowel syndrome with both constipation and diarrhea: Code(s): K58.2 - Mixed irritable bowel syndrome Category: Medical Plan She continues to do well. However she is taking more bentyl for IBS and we will increase from 10mg to 20mg. She also is having HB when she bends down to garden, and I will rx pepcid r/t its fast onset of action for prn use. She continues on her MiraLax as needed and her simethicone for gas and bloating. She still has some bowel irritability and bloating but is generally better with more consistent BM's and less pain. Her twin sister has similar problems. Rov 6 MOS. Medications: New famotidine (Pepcid) 40 mg PO BEDTIME PRN 30 tabs 6RF heartburn dicyclomine 20 mg PO QID 120 tabs 6RF 30 days Refilled simethicone (Gas-X Extra Strength) 125 mg PO BID-QID 90 caps 6RF Discontinued dicyclomine Discontinued Reason: Doctor's Order 10 mg PO QID 30 days 120 caps 6RF R10.9 - Unspecified abdominal pain Coding Level of Care Code Est Pt Level 3 (38957) Diagnoses Irritable bowel syndrome with both constipation and diarrhea K58.2
== END 2023-09-26 09:21 | disposition home or self-care (01) ==
PROVIDERS: PCP Internal Medicine; Visit Provider Nurse Practitioner
DX: K58.2 Mixed irritable bowel syndrome (principal)
CPT/HCPCS: 99213

== ENCOUNTER → 2023-09-26 08:43 | Outpatient (BNVA) | payer MEDICARE, SELFPAY | PROVIDERS: PCP Internal Medicine; Visit Provider Nurse Practitioner | DX: K58.2 Mixed irritable bowel syndrome (principal); Z79.899 Other long term (current) drug therapy | CPT/HCPCS: 99212 ==

== ENCOUNTER 2023-12-25 08:12 | Outpatient (REF) | payer MEDICARE, SELFPAY ==
--- NOTE | ~2023-12-25 | MM_ITS ---
EXAMINATION: MM SCREENING DIGITAL BREAST TOMOSYNTHESIS, BILATERAL CLINICAL INFORMATION: Screening. Asymptomatic. COMPARISON: Mammography: This study is compared with prior exams dating back to 2019. TECHNIQUE: Digital breast tomosynthesis is performed in both the craniocaudal and mediolateral oblique views along with computer-aided detection (CAD). Synthesized 2D images are generated from the tomosynthesis. FINDINGS: There are scattered areas of fibroglandular density (ACR BI-RADS breast composition Category b). There are no significant masses, abnormal calcifications, or other abnormalities. MM/MM tomosynthesis screening BI IMPRESSION: No mammographic evidence of malignancy. ASSESSMENT: BI-RADS BI-RADS 1 - Negative RECOMMENDATION: Routine annual mammography screening. 1 year F/U This examination should not preclude the clinical evaluation of a suspicious palpable abnormality. This patient's information was entered into a reminder system with a target due date for their next mammogram. Electronically signed by: Christal Byrd MD 01/23/2024 06:39 AM EDT
== END 2023-12-25 08:13 | disposition home or self-care (01) ==
LOC: HO.MAMMO 08:12
PROVIDERS: PCP Internal Medicine; Referring Provider Nurse Practitioner Adult Health; Visit Provider Internal Medicine
DX: Z12.31 Encounter for screening mammogram for malignant neoplasm of breast (principal)
CPT/HCPCS: 77063; 77067

== ENCOUNTER → 2023-12-25 08:45 | Outpatient (BNV) | payer MEDICARE, SELFPAY | PROVIDERS: PCP Internal Medicine; Referring Provider Nurse Practitioner Adult Health; Visit Provider Radiology Diagnostic Radiology | DX: Z12.31 Encounter for screening mammogram for malignant neoplasm of breast (principal) | CPT/HCPCS: 77063; 77067 ==

== ENCOUNTER 2024-04-23 12:10 | Outpatient (AMB) | payer MEDICARE, SELFPAY ==
--- NOTE | 2024-04-23 12:13 | MHC.OFFVIS ---
Vital Signs 04/23/24 12:14 Height 5 ft 2 in Weight 138 lb 14.259 oz BMI 25.4 BP 142/63 H Blood Pressure Location Lt brachial Position Sitting Pulse 70 Intake Visit Reasons: 6 mos f/u, r/s'd from 03/26 Intake Note: Lindsey presents in office today for a scheduled 6 mos FUV. She states that she had some episodes since her last visit that she would like to discuss with Sonya. 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 However she is taking more bentyl for IBS and we will increase from 10mg to 20mg. She also is having HB when she bends down to garden, and I will rx pepcid r/t its fast onset of action for prn use. She continues on her MiraLax as needed and her simethicone for gas and bloating. She still has some bowel irritability and bloating but is generally better with more consistent BM's and less pain. Her twin sister has similar problems. Rov 6 MOS. Medications: New famotidine (Pepcid) 40 mg PO BEDTIME PRN 30 tabs 6RF heartburn dicyclomine 20 mg PO QID 120 tabs 6RF 30 days Refilled simethicone (Gas-X Extra Strength) 125 mg PO BID-QID 90 caps 6RF Discontinued dicyclomine Discontinued Reason: Doctor's Order 10 mg PO QID 30 days 120 caps 6RF R10.9 - Unspecified abdominal pain TODAY'S VISIT She had 2 bad episodes of severe diarrhea since I last saw her, it was preceded by a huge pain across the lower abd. But she did not take the bentyl right away. After a while the sx resolved, and she was worried because she took 3 a day, I reassure her that one can safely take up to 8 a day at the 20mg dose so that she is not fearful of using it more assertively. With this and the suggestion that she take it when she gets the pain I think she will do better. She still has the GERD when she bends over, but she will try 2 at once when this happens. ROV 6 mos. PFSH Medical History Constipation Sinusitis Acute diarrhea Physical exam Surgical History Hx of colonoscopy Family History Mother No problems noted. Father No problems noted. Social History Household Members: Spouse Housing: House Alcohol intake: current Alcohol intake frequency: holidays/special occasions only Patient Tobacco Use Status: Former Tobacco user Tobacco use type: Cigarette e-Cigarette/Vaping Use: Never Used Second Hand Smoke Exposure: No service: No Current occupational status: employed Cognitive needs: No Hearing needs: No Vision needs: Yes Review of Systems Const Denies fatigue, Denies fever(s), Denies night sweats, Denies poor appetite and Denies weight loss Eyes Details: glasses Reports requires corrective lenses ENT Reports Normal hearing present, Denies dental pain, Denies dysphagia, Denies hearing loss, Denies mouth pain, Denies odynophagia, Denies throat swelling, Denies tongue swelling and Reports other (Dentition adequate) Card Reports no additional complaints Resp Reports no additional complaints GI Details: Denies abdominal pain, Denies melena, Denies bloating, Denies hematochezia, Denies constipation, Reports GI cramping, Denies dysphagia, Denies excessive flatus, Denies early satiety, Reports heartburn, Denies diarrhea, Reports loose stools, Denies nausea, Denies odynophagia, Denies vomiting and Denies hematemesis Skin/Breast Denies pruritus, Denies lesions, Denies rash and Denies jaundice Neuro Reports Normal hearing present and Denies Abnormal speech present Endo Denies fatigue Aller/Immun Denies throat swelling and Denies tongue swelling Physical Exam Vital Signs: Last Vital Signs Pulse 70 04/23/24 12:14 BP 142/63 H 04/23/24 12:14 BMI result Body Mass Index 25.4 Const General: cooperative, no acute distress, well developed and well groomed Nutritional Appearance: average body habitus and well nourished Orientation/consciousness: oriented to person, oriented to place and oriented to time Limitations: No language barrier HEENT Head: Yes normocephalic and Yes atraumatic Eyes General: appearance normal, both eyes and all related structures Pupils: Equal, round and reactive pupils present Neck Neck: Yes normal visual inspection and Yes no lymphadenopathy Thyroid: Thyroid normal Resp Effort & Inspection: normal respiratory effort and able to speak in complete sentences Auscultation: clear to auscultation bilaterally Cardio Rate: regular rate Rhythm: regular rhythm Heart sounds: Normal, physiologic split S2 sound present Peripheral pulses: radial pulses present and posterior tibial pulses present GI Inspection: No distended and No Abdominal panniculus present Palpation (GI): Soft to palpation, nontender, no guarding, not rigid and No hepatosplenomegaly present Percussion: Yes normal to percussion Auscultation: normal bowel sounds Rectal Exam - Female: deferred Skin General skin exam: no rashes or lesions noted, turgor normal, skin not dry, no jaundice, No spider nevi and no striae Rashes: no rashes Nails: normal Neuro General: oriented to person, oriented to place and oriented to time Cranial nerves: Yes Equal, round and reactive pupils present and Yes Normal hearing present Speech: No Abnormal speech present Extrem General: Yes normal to inspection, No clubbing, No cyanosis and No edema Psych Appearance: grossly normal and well kempt Mental Status: mental status grossly normal Speech and movement: Normal speech and movement present Affect: normal affect Attitude: cooperative Thought process: Normal thought process present and not confabulating Thought content: Normal thought content present Insight: Fair insight present (Psych) Judgement: Fair judgement present (Psych) Assessment & Plan Assessment & Plan (1) Irritable bowel syndrome with both constipation and diarrhea: Code(s): K58.2 - Mixed irritable bowel syndrome Category: Medical (2) GERD (gastroesophageal reflux disease): Code(s): K21.9 - Gastro-esophageal reflux disease without esophagitis Category: Medical Plan She had 2 bad episodes of severe diarrhea since I last saw her, it was preceded by a huge pain across the lower abd. But she did not take the bentyl right away. After a while the sx resolved, and she was worried because she took 3 a day, I reassure her that one can safely take up to 8 a day at the 20mg dose so that she is not fearful of using it more assertively. With this and the suggestion that she take it when she gets the pain I think she will do better. She still has the GERD when she bends over, but she will try 2 at once when this happens. ROV 6 mos. Medications: Refilled polyethylene glycol 3350 (Miralax) 17 grams PO BID 1,020 grams 6RF 30 days K59.00 - Constipation, unspecified dicyclomine 20 mg PO QID 120 tabs 6RF 30 days simethicone (Gas-X Extra Strength) 125 mg PO BID-QID 90 caps 6RF famotidine (Pepcid) 40 mg PO BEDTIME PRN 30 tabs 6RF heartburn Coding Level of Care Code Est Pt Level 3 (04144) Diagnoses Irritable bowel syndrome with both constipation and diarrhea K58.2 GERD (gastroesophageal reflux disease) K21.9
[2024-04-23 12:14] VITALS: BP 142/63; PULSE 70; BMI 25.4
--- OUTSIDE RECORDS SUMMARY | 2024-04-30 13:40 | XMS_ITS ---
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 Name Role Phone Vivek Santamaria Primary Care Provider ITZEL [place] Unavailable [phone] ALLERGIES Allergen (clinical drug ingredient) Drug/Non Drug Allergy documented on EMR Reaction Allergy Type Onset Date Status Iodinated contrast media (substance) iodinated contrast media (uncoded) Unknown Allergy Active acetaminophen / oxycodone Percocet Unknown Drug Allergy Active oxycodone Oxycodone Unknown Drug Allergy Active REASON FOR VISIT 4wk MEDICATIONS Medication SIG (Take, Route, Frequency, Duration) Notes Start Date End Date Status Budesonide 32 MCG/ACT 2 sprays (1 spray in each nostril) Nasally Once a day Active Simethicone 125 MG 1 tablet after meals and at bedtime as needed Orally Four times a day Not-Taking Riboflavin 400 MG 1 capsule Orally Onc e a day Not-Taking Hydrocortisone 2.5 % 1 application Externally Once a day Not-Taking Calcium Carbonate No t-Taking Escitalopram Oxalate 10 MG 1 tablet Oral ly Once a day Active Dicyclomine HCl 10 MG 2 capsules Orally Three times a day Active Alendronate Sodium 70 MG 1 tablet 30 min utes before the first food, beverage or medicine of the day with plain water Orally Active Wheat Dextrin - as directed Orally Not-Taking Digestive Enzyme - as directed Orally Active Vitamin D Active Calcium 600 MG 1 tablet with meals Orally Twice a day Active Famotidine 40 MG 1 tablet Orally Once a day Active valACYclovir HCl 500 MG 1 tablet Orally Once a day Active Polyethylene Glycol 3350 17 GM 1 packet mixed with 8 ounces of fluid Orally Once a day Not-Taking Gas-X Active Vitamin B12 1000 MCG 1 tablet Orally Onc e a day Active MiraLax 17 GM/SCOOP 1 scoop mixed with 8 ounces of fluid Orally Once a day Active Fiber 28.3 % as directed Orally Active PROBLEMS Problem Type ICD Code Onset Dates Problem Status W/U Status Risk SNOMED Code Notes Problem Lumbosacral radiculopathy at L5 (M54.17) Active confirmed [id number] VITAL SIGNS Weight 141.2 lbs 03/29/2024 Height 5ft 2in in 03/29/2024 BMI 25.82 kg/m2 03/29/2024 Heart Rate 79 /min 03/29/2024 Temperature 96.5 degrees Fahrenheit 03/29/20 24 Respiratory Rate 16 /min 03/29/2024 Encounters Encounter Location Date Provider Diagnosis [facility] [address] [place] [address] 03/29/2024 ITZEL NASEEM Pain of right heel M79.671 ; 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 This is likely caused compensatory effects and plantar fasciitis. She has noticed significant improvements since she had the right sinus tarsi injection and right plantar fascia injection. I advised that she continue to use the brace for long walks and good supportive shoe gear. If she notices any return of pain I advised she follow back in the office. 03/29/2024 Osteoarthritis of right subtalar joint (ICD-10 - M19.071) 03/29/2024 Plantar fasciitis (ICD-10 - M72.2) 03/29/2024 Lumbosacral radiculopathy at L5 (ICD-10 - M54.17) Patient has been noticing intermittent tripping due to catching of the right toes. I discussed with her that this is sign of radiculopathy from her lumbar spine. L5 controls the anterior muscle group and dorsiflexion. When there is irritation/compressi on around L5 patients can have nerve like pain in the dermatome, spasms, cramping, and weakness leading to a foot drop. This may also be why she is having the cramping. I advised that she discuss this more with her PCP team so that they can further evaluate her lumbar spine. I did request records to review from her PCP Team as well to see if she has had any type of work up for this in the past. I did stress that this intermittent catching can progress and I advised that if she notices more persistent catching she seek immediate evaluation at the ER. She expressed understanding of this. PLAN OF TREATMENT Treatment Notes Assessment Notes Tarsal coalition of right foot Patient e xamined and evaluated. 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 This is likely caused compensatory effects and plantar fasciitis. She has noticed significant improvements since she had the right sinus tarsi injection and right plantar fascia injection. I advised that she continue to use the brace for long walks and good supportive shoe gear. If she notices any return of pain I advised she follow back in the office. Lumbosacral radiculopathy at L5 Patient has been noticing intermittent tripping due to catching of the right toes. I discussed with her that this is sign of radiculopathy from her lumbar spine. L5 controls the anterior muscle group and dorsiflexion. When there is irritation/compression around L5 patients can have nerve like pain in the dermatome, spasms, cramping, and weakness leading to a foot drop. This may also be why she is having the cramping. I advised that she discuss this more with her PCP team so that they can further evaluate her lumbar spine. I did request records to review from her PCP Team as well to see if she has had any type of work up for this in the past. I did stress that this intermittent catching can progress and I advised that if she notices more persistent catching she seek immediate evaluation at the ER. She expressed understanding of this. Progress Notes * Rosmery CASTILLOOB:1955 ( 68 yo F)Acc No.[id number]:03/29/2024 Progress Note Patient:??Lindsey CASTILLO Provider:??Itzel Morrison DPM :1955?Age:68 Y?Sex:Fe male Date:03/29/2024 Phone: Address:[address] [place] [address] [address] [place] [phone] Pcp:Vivek Santamaria Subjective: * Chief Complaints: * ?4wk * HPI: ?Constitutional:? Ms. Castillo presents for a 4 week follow up of her right ankle and heel pain. She had a right sinus tarsi and plantar fascia injection at her last visit and was given an ASO brace to start wearing. She states her pain is about 90% better. She does wear the brace for long walks, but does find that it causes some irritation to the top of the foot. She has noticed some toe catching issues when walking or going up and down stairs. She finds that she will hit the toes on the right and this makes her feel like she may fall. She states this is off and on and not a constant thing. She also has noticed intermittent cramping when she gets up in the morning around her right calf region. No swelling. She has a past history of back issues. She currently does not have any back pain. * ROS:?General/Constitutional:?Denies??Chills.??Denies??Fatigue.??Denies??Fever.??Denies??Headache. ?Endocrine:?Denies??Excessive sweating.??Denies??Excessive thirst.??Denies??Frequent urination.?Respiratory:?Denies??Cough.??Denies??Shortness of breath,??denies.??Denies??Wheezing.?Cardiovascular:?Denies??Chest pain.??Denies??Claudication.??Denies??Cyanosis.?Gastrointestinal:?Denies??Abdominal pain.??Denies??Constipation.??Denies??Diarrhea.?Hematology:?Denies??Bleeding problems,??denies.??Denies??Easy bruising,??denies.??Denies??Swollen glands.?Musculoskeletal:?Patient complaining of??pain to the bottom of the right heel and around the top of the right foot, improved.?.??Admits??Back problems.??Denies??History of Gout.??Admits??Leg cramps.??Denies??Limping gait.??Denies??Muscle aches.?Peripheral Vascular:?Denies??Blanching of skin.??Blood clots in legs??Denies.??Denies??Cold extremities.?Neurologic:?Admits??Gait abnormality,??occasional toe catching on the right.?.? * Medical History:?? * Surgical History:??colonosco py tonsilectomy section x2 * Hospitalization/Major Diagno stic Procedure:??Denies Past Hospitalization * Family History:??Father: dec eased.??Mother: .?? adopted. * Social History:?tobacco: former tobacco user alcohol: holidays/special occasions Retired. Lives with and three dogs. * Medications:??TakingMiraLax 17 GM/SCOOP Powder 1 scoop mixed with 8 ounces of fluid Orally Once a day Fiber 28.3 % Powder as directed Orally Gas-X Vitamin B12 1000 MCG Tablet Extended Release 1 tablet Orally Once a day Vitamin D Calcium 600 MG Tablet 1 tablet with meals Orally Twice a day Famotidine 40 MG Tablet 1 tablet Orally Once a day valACYclovir HCl 500 MG Tablet 1 tablet Orally Once a day Escitalopram Oxalate 10 MG Tablet 1 tablet Orally Once a day Dicyclomine HCl 10 MG Capsule 2 capsules Orally Three times a day Alendronate Sodium 70 MG Tablet 1 tablet 30 minutes before the first food, beverage or medicine of the day with plain water Orally Digestive Enzyme - Capsule as directed Orally Budesonide 32 MCG/ACT Suspension 2 sprays (1 spray in each nostril) Nasally Once a day Taking MiraLax 17 GM/SCOOP Powder 1 scoop mixed with 8 ounces of fluid Orally Once a day Taking Fiber 28.3 % Powder as directed Orally Taking Gas-X Taking Vitamin B12 1000 MCG Tablet Extended Release 1 tablet Orally Once a day Taking Vitamin D Taking Calcium 600 MG Tablet 1 tablet with meals Orally Twice a day Taking Famotidine 40 MG Tablet 1 tablet Orally Once a day Taking valACYclovir HCl 500 MG Tablet 1 tablet Orally Once a day Taking Escitalopram Oxalate 10 MG Tablet 1 tablet Orally Once a day Taking Dicyclomine HCl 10 MG Capsule 2 capsules Orally Three times a day Taking Alendronate Sodium 70 MG Tablet 1 tablet 30 minutes before the first food, beverage or medicine of the day with plain water Orally Taking Digestive Enzyme - Capsule as directed Orally Taking Budesonide 32 MCG/ACT Suspension 2 sprays (1 spray in each nostril) Nasally Once a day Not-TakingPolyethylene Glycol 3350 17 GM Packet 1 packet mixed with 8 ounces of fluid Orally Once a day Wheat Dextrin - Powder as directed Orally Simethicone 125 MG Tablet Chewable 1 tablet after meals and at bedtime as needed Orally Four times a day Riboflavin 400 MG Capsule 1 capsule Orally Once a day Hydrocortisone 2.5 % Cream 1 application Externally Once a day Calcium Carbonate Medication List reviewed and reconciled with the patientNot-Taking Polyethylene Glycol 3350 17 GM Packet 1 packet mixed with 8 ounces of fluid Orally Once a day Not-Taking Wheat Dextrin - Powder as directed Orally Not-Taking Simethicone 125 MG Tablet Chewable 1 tablet after meals and at bedtime as needed Orally Four times a day Not-Taking Riboflavin 400 MG Capsule 1 capsule Orally Once a day Not-Taking Hydrocortisone 2.5 % Cream 1 application Externally Once a day Not-Taking Calcium Carbonate Medication List reviewed and reconciled with the patient * Allergies:??iodinated contra st media: AllergyOxycodone: AllergyPercocet: Allergyno[Allergies Verified] Objective: * Vitals:??Wt:141.2lbs, Ht: 5f t 2in, BMI:25.82Index, HR:79/min, Temp:96.5F, RR:16/min, Ht-cm: 157.48, Wt-k.05 kg. * Examination: ?General Examination: ?This is an elderly female. Alert and oriented today and in no acute distress. Patient comes in ambulating in sneakers without using any assistive devices. Breathing is regular and unlabored while sitting. Affect is pleasant and cooperative. No unusual anxiety or depression noted. Hearing intact to spoken word. No evidence of visual impairment that would impact self care or ambulation. Pedal pulses are difficult to palpate. Doppler exam revealed biphasic DP bilaterally and triphasic PT bilaterally. No varicosities visualized. Capillary refill is less than 3 seconds to all digits bilaterally. Light touch sensation is symmetrical to all lower extremity dermatomes. Babinski is downgoing. Dermal atrophy to both lower extremities.There are no open wounds, rashes, or lesions noted. The subtalar joint range of motion on the right is very restricted with no tenderness around the right sinus tarsi and navicular region today. The left subtalar joint has a little bit more motion, but still restricted and there is clicking around the sinus tarsi on the left. Ankle joint range of motion is unrestricted bilaterally. There is minimal tenderness with pressure to the plantar medial aspect of the right heel. Negative tinel with percussion into the right tarsal tunnel and around the right fibular neck. There is no pain at the right Achilles insertion. No pain with medial and lateral compression to the right calcaneus. 5/5 strength for anterior, posterior, and lateral lower extremity muscle groups on the left and right. 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 Plan: * Treatment: 2.??Lumbosacral radiculopath y at L5?? Notes: Patient has been noticing intermittent tripping due to catching of the right toes. I discussed with her that this is sign of radiculopathy from her lumbar spine. L5 controls the anterior muscle group and dorsiflexion. When there is irritation/compression around L5 patients can have nerve like pain in the dermatome, spasms, cramping, and weakness leading to a foot drop. This may also be why she is having the cramping. I advised that she discuss this more with her PCP team so that they can further evaluate her lumbar spine. I did request records to review from her PCP Team as well to see if she has had any type of work up for this in the past. I did stress that this intermittent catching can progress and I advised that if she notices more persistent catching she seek immediate evaluation at the ER. She expressed understanding of this. ? * Procedure Codes:?? * Billing Information: * Visit Code:?? 81850 Office Visit, Est Pt., Level 3. * Procedure Codes:?? * Sign off status: Completed true * Provider:??Itzel Morrison [facility] Date:??12/2023 History and Physical Notes * Examination Category Sub-Category Detail Notes Category Not es General Examination This is an elderly female. Alert and oriented today and in no acute distress. Patient comes in ambulating in sneakers without using any assistive devices. Breathing is regular and unlabored while sitting. Affect is pleasant and cooperative. No unusual anxiety or depression noted. Hearing intact to spoken word. No evidence of visual impairment that would impact self care or ambulation. Pedal pulses are difficult to palpate. Doppler exam revealed biphasic DP bilaterally and triphasic PT bilaterally. No varicosities visualized. Capillary refill is less than 3 seconds to all digits bilaterally. Light touch sensation is symmetrical to all lower extremity dermatomes. Babinski is downgoing. Dermal atrophy to both lower extremities.There are no open wounds, rashes, or lesions noted. The subtalar joint range of motion on the right is very restricted with no tenderness around the right sinus tarsi and navicular region today. The left subtalar joint has a little bit more motion, but still restricted and there is clicking around the sinus tarsi on the left. Ankle joint range of motion is unrestricted bilaterally. There is minimal tenderness with pressure to the plantar medial aspect of the right heel. Negative tinel with percussion into the right tarsal tunnel and around the right fibular neck. There is no pain at the right Achilles insertion. No pain with medial and lateral compression to the right calcaneus. 5/5 strength for anterior, posterior, and lateral lower extremity muscle groups on the left and right.
--- OUTSIDE RECORDS SUMMARY | 2024-04-30 13:40 | XMS_ITS ---
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
--- OUTSIDE RECORDS SUMMARY | 2024-04-30 13:40 | XMS_ITS ---
Author Organization [facility] Address [address] [address] Care Team Providers Care Transit Mixer Operator Name Role Phone Vivek Santamaria Primary Care Provider ITZEL [place] Unavailable [phone] REASON FOR VISIT 4wk Encounters Encounter Location Date Provider Diagnosis [facility] [address] [address] 03/22/2024 ITZEL GUSMAN PLAN OF TREATMENT No Information Progress Notes * Nancie CASTILLOneDOB:1955 ( 68 yo F)Acc No.[id number]:03/22/2024 Progress Note Patient:??Lindsey CASTILLO Provider:??Itzel Morrison DPMali :1955?Age:68 Y?Sex:Fe male Date:03/22/2024 Phone: Address:[address] [place] [address] [id number] Pcp:Vivek Santamaria Subjective: * Chief Complaints: * ?1. 4wk. * Medical History:?? Objective: Assessment: Plan: * Treatment: * Billing Information: * Visit Code:?? * Procedure Codes:?? * Sign off status: Pending * Provider:??Itzel Morrison DPMali Date:??05/2023
--- OUTSIDE RECORDS SUMMARY | 2024-04-30 13:41 | XMS_ITS | Patient Health Record ---
[facility] Organization [facility] iglesia Cucumber Address [address] [facility] [place] [address] Care Team Providers Care Linux Network Systems Administrator Name Role Phone Rosalio RAMIREZ, Vivek Primary Care Provider Hemanta ashlee Rosey [place]ár[place] Unavailable [phone] Allergies Allergen (clinical drug ingredient) Drug/Non Drug Allergy documented on EMR Reaction Allergy Type Onset Date Status acetaminophen / oxycodone Percocet itching Drug Allergy Active Reason For Referral No Information Medications Medication SIG (Take, Route, Fr equency, Duration) Notes Start Date End Date Status Urea 40% APPLY TO AFFECTED AR EA TWICE A DAY EXTERNALLY for 30 Active Custom Orthotics as directed A ctive Custom Orthotics as directed 09/25/2013 Active Valtrex 500 MG 1 tablet Orally ever y 12 hrs for 10 day(s) Active Work Note . . . 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 08/23/2013 Active Problems Problem Type SNOMED Code ICD Code Onset Dates Problem Status W/U Status Risk Notes Problem Capsulitis (2519500) Capsulitis (726.90) Active confirmed Problem Pain in limb (59702009) Pain in Limb (729.5) Active confirmed Problem Hammer toe (855493272) Hammer toe (735.4) Active confirmed Problem Metatarsalgia (33524693) Metatarsalgia (726.70) Active confirmed Problem Neuroma (622705255) 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) Active confirmed Problem Pain in limb (00126133) Pain in Limb (729.5) Active confirmed Problem Verruca plantaris (72740818) Verruca Plantaris (078.19) Active confirmed Problem Disorder of sebaceous gland (0126960) Xerosis (706.8) Active confirmed Plan Of Treatment Pending Test Test Name Order Date X ray : Foot, left 3V 04/01/2013 11804-Awlh Destruction, -08/01/2011 94127-Owno Destruction, -08/22/2011 19246-Gjum Destruction, -09/26/2011 50159-Qfzl Destruction, 06-0411/03/2011 71082-Gfnf Destruction, 06-0404/01/2013 65280- Debride <25 sq cm 05/24/2013 02026, J0702- Neuroma/Injection 08/24/19 14 80963- Biopsy of skin lesion 05/03/2013 Insurance Providers Payer Name Payer Address Payer Phone Subscriber Number Group Number Insured Name Patient Relationship to Insured Coverage Start Date Coverage End Date [employer] [place] Medicare Advantage [address] [place] [address] Lindsey Castillo Self - patient is the insured Medical (General) History Medical History History ICD Code thyroid disorder mumps chicken pox Surgical History Surgery Date(Month/Year) section
--- OUTSIDE RECORDS SUMMARY | 2024-04-30 13:41 | XMS_ITS | Patient Health Record ---
Author Organization [facility] Address [address] [facility] [address] [facility] [place] [address] Care Team Providers Care Dust Mill Operator Name Role Phone Vivek Santamaria Primary Care Provider TAN[place] Unavailable [phone] ALLERGIES Allergen (clinical drug ingredient) Drug/Non Drug Allergy documented on EMR Reaction Allergy Type Onset Date Status Iodinated contrast media (substance) iodinated contrast media (uncoded) Unknown Allergy Active acetaminophen / oxycodone Percocet Unknown Drug Allergy Active oxycodone Oxycodone Unknown Drug Allergy Active REASON FOR REFERRAL No Information MEDICATIONS Medication SIG (Take, Route, Frequency, Duration) Notes Start Date End Date Status Budesonide 32 MCG/ACT 2 sprays (1 spray in each nostril) Nasally Once a day Active Gas-X Active Vitamin B12 1000 MCG 1 tablet Orally Onc e a day Active Vitamin D Active Calcium 600 MG 1 tablet with meals Orally Twice a day Active Famotidine 40 MG 1 tablet Orally Once a day Active valACYclovir HCl 500 MG 1 tablet Orally Once a day Active Polyethylene Glycol 3350 17 GM 1 packet mixed with 8 ounces of fluid Orally Once a day Not-Taking Escitalopram Oxalate 10 MG 1 tablet Oral ly Once a day Active Dicyclomine HCl 10 MG 2 capsules Orally Three times a day Active MiraLax 17 GM/SCOOP 1 scoop mixed with 8 ounces of fluid Orally Once a day Active Alendronate Sodium 70 MG 1 tablet 30 min utes before the first food, beverage or medicine of the day with plain water Orally Active Fiber 28.3 % as directed Orally Active Wheat Dextrin - as directed Orally Not-Taking Digestive Enzyme - as directed Orally Active Simethicone 125 MG 1 tablet after meals and at bedtime as needed Orally Four times a day Not-Taking Riboflavin 400 MG 1 capsule Orally Onc e a day Not-Taking Hydrocortisone 2.5 % 1 application Externally Once a day Not-Taking Calcium Carbonate No t-Taking PROBLEMS Problem Type ICD Code Onset Dates Problem Status W/U Status Risk SNOMED Code Notes Problem 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) Active confirmed 98363290601192380 Problem Plantar fasciitis (M72.2) Active confirmed 066821714 Problem Lumbosacral radiculopathy at L5 (M54.17) Active confirmed 4968691 Problem 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 09452000596351160 VITAL SIGNS Heart Rate 79 /min 03/29/2024 Temperature 96.5 degrees Fahrenheit 03/29/2024 Respiratory Rate 16 /min 03/29/2024 Height 5ft 2in in 03/29/2024 Weight 141.2 lbs 03/29/2024 BMI 25.82 kg/m2 03/29/2024 PROCEDURES Procedure Date Ordered Date Performed Result Body Sit e INJ TENDON SHEATH/LIGAMENT/FASCIA 02/23/2024 N/ A DRAIN/INJECT, INTERMEDIATE JOINT/BURSA 02/23/2024 N/A AFO ANK DAWN PREFAB W/FIT&ADJ 02/23/2024 N/A Encounters Encounter Location Date Provider Diagnosis [facility] [address] 03/22/2024 TANNER NASEEM [facility] [address] 02/23/2024 TANNER NASEEM Pain of right heel M79.671 ; Tarsal coalition of right foot Q66.89 ; Osteoarthritis of right subtalar joint M19.071 and Plantar fasciitis M72.2 [facility] [address] [address] 03/29/2024 TANNER NASEEM Pain of right heel M79.671 ; Tarsal coalition of right foot Q66.89 ; Osteoarthritis of right subtalar joint M19.071 ; Plantar fasciitis M72.2 and Lumbosacral radiculopathy at L5 M54.17 [facility] [address] [address] 01/26/2024 TANNER NASEEM [facility] [address] [facility] [address] [place] [address] 03/29/2024 TANNER GUSMAN ASSESSMENTS Encounter Date Diagnosis Assessment Notes Treatment Notes Treatment Clinical Notes Section Notes 02/23/2024 Pain of right heel (ICD-10 - M79.671) 02/23/2024 Tarsal coalition of right foot (ICD-10 - Q66.89) This is an outpatient visit for evaluation and management of a new patient, which required appropriate review of pertinent medical history, review of any previous imaging, review of all previous records, and examination and decision-making. Time was 35 minutes spent in review of all these facets including face to face discussion with the patient regarding my findings and in discussion of a current and future treatment plan. Three weightbearing radiographs of the right foot were taken in the office and reviewed with the patient. 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 This is likely caused compensatory effects and plantar fasciitis. I discussed coalitions in detail and advised we start with ASO bracing when she is doing any prolonged ambulation. I discussed the option of oral, topical and injectable pain relievers. She wished to try steroid injections. One was given into the right plantar fascia and another into the right sinus tarsi. She tolerated them well. She was given written post-injection instructions. I also provided her with written education on coalitions and printed copies of her images. I would like to see her back in 4 weeks to re-evaluate. I encouraged her to call in the meantime with any questions or concerns. 03/29/2024 Pain of right heel (ICD-10 - [...] advised she follow back in the office. 02/23/2024 Osteoarthritis of right subtalar joint (ICD-10 - M19.071) 03/29/2024 Osteoarthritis of right subtalar joint (ICD-10 - M19.071) 02/23/2024 Plantar fasciitis (ICD-10 - M72.2) 03/29/2024 Plantar fasciitis (ICD-10 - M72.2) 03/29/2024 [...] expressed understanding of this. PLAN OF TREATMENT Pending Test Test Name Order Date X ray : Foot, right 3v 02/23/2024 INJ TENDON SHEATH/LIGAMENT/FASCIA 2023 DRAIN/INJECT, INTERMEDIATE JOINT/BURSA 1 AFO JEREMY GAUNTLT PREFAB W/FIT&ADJ 024 Insurance Providers Payer Name Payer Address Payer Phone Subscriber Number Group Number Insured Name Patient Relationship to Insured Coverage Start Date Coverage End Date [facility] MEDICARE ADVANTAGE [address] [facility] [place] [phone] [id number] Lindsey Castillo Self - patient is the insured MEDICATIONS ADMINISTERED Medication Instructions Date of Administration Dosage Notes dexAMETHasone Sod Phosphate PF 02/23/2024 4 mg Kenalog 02/23/2024 10 mg MEDICAL (GENERAL) HISTORY Medical History History ICD Code gluten sensitivity Osteoporosis Depression Allergic Rhinitis HSV-1 Acid reflux Lower back pain with off and on sciatica Surgical History Surgery Date(Month/Year) colonoscopy tonsilectomy section x2
== END 2024-04-23 13:30 | disposition home or self-care (01) ==
PROVIDERS: PCP Internal Medicine; Visit Provider Nurse Practitioner
DX: K58.2 Mixed irritable bowel syndrome (principal); K21.9 Gastro-esophageal reflux disease without esophagitis
CPT/HCPCS: 99213

== ENCOUNTER → 2024-04-23 12:10 | Outpatient (BNVA) | payer MEDICARE, SELFPAY | PROVIDERS: PCP Internal Medicine; Visit Provider Nurse Practitioner | DX: K58.2 Mixed irritable bowel syndrome (principal); K21.9 Gastro-esophageal reflux disease without esophagitis | CPT/HCPCS: 99212 ==

== ENCOUNTER 2024-07-08 08:14 | Outpatient (REF) | payer MEDICARE, SELFPAY ==
--- OUTSIDE RECORDS SUMMARY | 2024-07-08 08:16 | XMS_ITS ---
Author Organization [facility] Address [address] [address] Care Team Providers Care Infant Babysitter Name Role Phone Vivek Santamaria Primary Care Provider TANNER [place] Unavailable [phone] REASON FOR VISIT Medical records Encounters Encounter Location Date Provider Diagnosis [facility] [address] [address] 03/29/2024 TANNER GUSMAN Plan Of Treatment No Information Progress Notes * Rosmery AZULOB:1955 ( 68 yo F)Acc No.[id number]:03/29/2024 Patient:?Lindsey AZUL :1955???Age:68 Y???Sex:Female Phone: Address:[address] [place] [address] [place] [id number] * true * Date:? Generated for Kesha harper/Isa/eTransmitting on:?07/08/2024 08:16 AM EST
--- OUTSIDE RECORDS SUMMARY | 2024-07-08 08:17 | XMS_ITS ---
Author Organization [facility] Address [address] [facility] [address] [place] [address] Care Team Providers Care Bed And Breakfast Cook Name Role Phone Vivek Santamaria Primary Care Provider ITZEL [place] Unavailable [phone] Allergies Allergen (clinical drug ingredient) Drug/Non Drug Allergy documented on EMR Reaction Allergy Type Onset Date Status Iodinated contrast media (substance) iodinated contrast media (uncoded) Unknown Allergy Active acetaminophen / oxycodone Percocet Unknown Drug Allergy Active oxycodone Oxycodone Unknown Drug Allergy Active REASON FOR VISIT 4wk Medications Medication SIG (Take, Route, Frequency, Duration) Notes [...] Fiber 28.3 % as directed Orally Active Problems Problem Type SNOMED Code ICD Code Onset Dates Problem Status W/U Status Risk Notes Problem 6124742 Lumbosacral radiculopathy at L5 (M54.17) Active confirmed Vital Signs Weight 141.2 lbs 03/29/2024 Height 5ft 2in in 03/29/2024 BMI 25.82 kg/m2 03/29/2024 Heart Rate 79 /min 03/29/2024 Temperature 96.5 degrees Fahrenheit 03/29/20 24 Respiratory Rate 16 /min 03/29/2024 Encounters Encounter Location Date Provider Diagnosis [facility] [address] [facility] [address] [place] [address] 03/29/2024 ITZEL NASEEM Pain of right heel M79.671 ; Tarsal coalition of right foot Q66.89 ; Osteoarthritis of right subtalar joint M19.071 ; Plantar fasciitis M72.2 and Lumbosacral radiculopathy at L5 M54.17 Assessments Encounter Date Diagnosis (ICD Code) Assessment Notes Treatment Notes Treatment Clinical Notes [...] the ER. She expressed understanding of this. Plan Of Treatment Treatment Notes Assessment Notes Tarsal coalition of [...] * Rosmery CASTILLOOB:1955 ( 68 yo F)Acc No.[id number]:03/29/2024 Progress Note Patient:?JORGE ALBERTO, Lindsey Provider:?Itzel Morrison DPM :1955???Age:68 Y???Sex:Female D ate:03/29/2024 Phone: Address:[address] [place] [address] [address], [id number] Pcp:Vivek Santamaria Subjective: * Chief Complaints: * ???4wk * HPI: ???Constitutional:? Ms. Castillo presents for a 4 week [...] does not have any back pain. * ROS:?General/Constitutional:?Denies?Chills.?Denies?Fatigue.?Denies?Fever.?Denies?Headache.?Endocrine:?Denies?Excessive sweating.?Denies?Excessive thirst.?Denies?Frequent urination.?Respiratory:?Denies?Cough.?Denies?Shortness of breath,?denies.?Denies?Wheezing.?Cardiovascular:?Denies?Chest pain.?Denies?Claudication.?Denies?Cyanosis.?Gastrointestinal:?Denies?Abdominal pain.?Denies?Constipation.?Denies?Diarrhea.?Hematology:?Denies?Bleeding problems,?denies.?Denies?Easy bruising,?denies.?Denies?Swollen glands.?Musculoskeletal:?Patient complaining of?pain to the bottom of the right heel and around the top of the right foot, improved.?.?Admits?Back problems.?Denies?History of Gout.?Admits?Leg cramps.?Denies?Limping gait.?Denies?Muscle aches.?Peripheral Vascular:?Denies?Blanching of skin.?Blood clots in legs?Denies.?Denies?Cold extremities.?Neurologic:?Admits?Gait abnormality,?occasional toe catching on the right.?.? * Medical History:? * Surgical History:?colonoscop y tonsilectomy section x2 * Hospitalization/Major Diagno stic Procedure:?Denies Past Hospitalization * Family History:?Father: dece ased.?Mother: .? adopted. * Social History:?tobacco: former tobacco user alcohol: holidays/special occasions Retired. Lives with and three dogs. * Medications:?TakingMiraLax 1 7 GM/SCOOP Powder 1 scoop mixed with 8 [...] reviewed and reconciled with the patient * Allergies:?iodinated contras t media: AllergyOxycodone: AllergyPercocet: Allergyno[Allergies Verified] Objective: * Vitals:?Wt:141.2lbs, Ht: 5ft 2in, BMI:25.82Index, HR:79/min, Temp:96.5F, RR:16/min, Ht-cm: 157.48, Wt-k.05 kg. * Examination: ???General Examination: ???This is an elderly female. Alert and oriented [...] the left and right. Assessment: * Assessment: 1.?Pain of right heel - M79. 671 (Primary)?2.?Tarsal coalition of right foot - Q66.89?3.?Osteoarthritis of right subtalar joint - M19.071?4.?Plantar fasciitis - M72.2?5.?Lumbosacral radiculopathy at L5 - M54.17? Plan: * Treatment: 2.?Lumbosacral radiculopathy at L5? Notes: Patient has been noticing intermittent tripping [...] the ER. She expressed understanding of this. ?? * Procedure Codes:? * Billing Information: * Visit Code:? 13156 Office Visit, Est Pt., Level 3. * Procedure Codes:? * Sign off status: Completed true * Provider:?Itzel Morrison DPM Date:?03/29 Generated for Kesha harper/Isa/Saulsmitting on:?07/08/2024 08:17 AM EST History and Physical Notes * Examination Category [...]
--- OUTSIDE RECORDS SUMMARY | 2024-07-08 08:17 | XMS_ITS | Patient Health Record ---
Author [facility] iglesia Polo Address [address] [facility] [place] [address] Care Team Providers Care Supply Service Worker Name Role Phone Rosalio RAMIREZ, Vivek Primary Care Provider Hemanta ashlee Rosey [place]ár[place] Unavailable [phone] Allergies Allergen (clinical drug ingredient) Drug/Non Drug [...] Status W/U Status Risk Notes Problem Capsulitis (1770421) Capsulitis (726.90) Active confirmed Problem Pain in limb (87688547) Pain in Limb (729.5) Active confirmed Problem Hammer toe (240437402) Hammer toe (735.4) Active confirmed Problem Metatarsalgia (99740075) Metatarsalgia (726.70) Active confirmed Problem Neuroma (831907032) 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) Active confirmed Problem Pain in limb (64809376) Pain in Limb (729.5) Active confirmed Problem Verruca plantaris (14001212) Verruca Plantaris (078.19) Active confirmed Problem Disorder of sebaceous gland (0414003) Xerosis (706.8) Active confirmed Plan Of Treatment Pending Test Test Name Order Date X ray : Foot, left 3V 04/01/2013 13536-Mlll Destruction, -08/01/2011 38661-Herx Destruction, -08/22/2011 40264-Uqoj Destruction, -09/26/2011 43798-Ftqy Destruction, 06-0411/03/2011 05012-Fcvn Destruction, 06-0404/01/2013 24276- Debride <25 sq cm 05/24/2013 33066, J0702- Neuroma/Injection 08/24/19 14 93721- Biopsy of skin lesion 05/03/2013 Insurance Providers Payer Name Payer Address Payer Phone Subscriber Number Group Number Insured Name Patient Relationship to Insured Coverage Start Date Coverage End Date [employer] [place] Medicare Advantage [address] [place] [id number] Lindsey Castillo Self - patient is the insured Medical (General) History Medical History History ICD Code thyroid disorder mumps chicken pox Surgical History Surgery Date(Month/Year) section
--- OUTSIDE RECORDS SUMMARY | 2024-07-08 08:17 | XMS_ITS | Patient Health Record ---
Author Organization [facility] Address [address] [facility] [address] [facility] [place] [place] [address] Care Team Providers Care Coating Operator Name Role Phone Vivek Santamaria Primary Care Provider TANNER [place] Unavailable [phone] Allergies Allergen (clinical drug ingredient) Drug/Non Drug Allergy documented on EMR Reaction Allergy Type Onset Date Status Iodinated contrast media (substance) iodinated contrast media (uncoded) Unknown Allergy Active acetaminophen / oxycodone Percocet Unknown Drug Allergy Active oxycodone Oxycodone Unknown Drug Allergy Active Reason For Referral No Information Medications Medication SIG (Take, Route, Frequency, Duration) [...] a day Not-Taking Calcium Carbonate No t-Taking Problems Problem Type SNOMED Code ICD Code Onset Dates Problem Status W/U Status Risk Notes Problem 39156479390376272 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) Active confirmed Problem Plantar fasciiti s (M72.2) Active confirmed Problem 0243004 Lumbosacral radiculopathy at L5 (M54.17) Active confirmed Problem 27774034045397627 Tarsal coaliti on of right foot (Q66.89) Active confirmed Vital Signs Heart Rate 79 /min 03/29/2024 Temperature 96.5 degrees Fahrenheit 03/29/2024 Respiratory Rate 16 /min 03/29/2024 Height 5ft 2in in 03/29/2024 Weight 141.2 lbs 03/29/2024 BMI 25.82 kg/m2 03/29/2024 Procedures Procedure Date Ordered Date Performed Result Body Sit e INJ TENDON SHEATH/LIGAMENT/FASCIA 02/23/2024 N/ A DRAIN/INJECT, INTERMEDIATE JOINT/BURSA 02/23/2024 N/A AFO ANK MANUNTLT PREFAB W/FIT&ADJ 02/23/2024 N/A Encounters Encounter Location Date Provider Diagnosis [facility] [address] 02/23/2024 TANNER NASEEM Pain of right heel M79.671 ; Tarsal coalition of right foot Q66.89 ; Osteoarthritis of right subtalar joint M19.071 and Plantar fasciitis M72.2 [facility] [address] 03/29/2024 TANNER NASEEM Pain of right heel M79.671 ; Tarsal coalition of right foot Q66.89 ; Osteoarthritis of right subtalar joint M19.071 ; Plantar fasciitis M72.2 and Lumbosacral radiculopathy at L5 M54.17 [facility] [address] [address] 01/26/2024 TANNER NASEEM [facility] [address] 03/29/2024 TANNER NASEEM Assessments Encounter Date Diagnosis (ICD Code) Assessment [...] expressed understanding of this. Plan Of Treatment Pending Test Test Name Order Date X ray : Foot, right 3v 02/23/2024 INJ TENDON SHEATH/LIGAMENT/FASCIA 2023 DRAIN/INJECT, INTERMEDIATE JOINT/BURSA 1 AFO JEREMY SEYMOUR PREFAB W/FIT&ADJ 024 Insurance Providers Payer Name Payer Address Payer Phone Subscriber Number Group Number Insured Name Patient Relationship to Insured Coverage Start Date Coverage End Date [employer] [place] MEDICARE ADVANTAGE [address] [place] [phone] [phone] [id number] Lindsey Castillo Self - patient is the insured Medications Administered Medication Instructions Date of Administration Dosage Notes dexAMETHasone Sod Phosphate PF 02/23/2024 4 mg Kenalog 02/23/2024 10 mg Medical (General) History Medical History History ICD Code gluten sensitivity Osteoporosis Depression Allergic Rhinitis HSV-1 Acid reflux Lower back pain with off and on sciatica Surgical History Surgery Date(Month/Year) colonoscopy tonsilectomy section x2
[2024-07-08 08:25] LABS: MANUAL DIFF FLAG NO
[2024-07-08 08:49] LABS: Basophils Absolute Auto 0.1 X10*3/uL (0.0-0.2); Basophils Percent Auto 0.8 % (0-2); Eosinophils Absolute Auto 0.1 X10*3/uL (0.0-0.4); Eosinophils Percent Auto 1.5 % (0-4); Hematocrit 40.7 % (37.0-47.0); Hemoglobin 13.5 g/dl (12.0-16.0); Imm Gran Abs Auto 0.04 X10*3/uL (0.00-0.03); Imm Gran Pct Auto 0.5 % (0.0-0.4); Lymphocytes Absolute Auto 2.1 X10*3/uL (1.2-4.9); Mean Corpuscular HGB Conc 33.2 g/dl (31.0-35.0); Mean Corpuscular Hemoglobin 34.1 pg (27.0-33.0); Mean Corpuscular Volume 102.8 fL (80.0-98.0); Mean Platelet Volume 10.7 fL (9.4-12.3); Monocytes Absolute Auto 0.5 X10*3/uL (0.1-1.2); Monocytes Percent Auto 6.5 % (2-11); Neutrophils Percent Auto 63.7 % (45-73); Platelet Count 288 X10*3/uL (160-400); Red Blood Count 3.96 X10*6/uL (4.20-5.50); Red Cell Distribution Width 13.1 % (11.0-16.0); White Blood Count 7.8 X10*3/uL (4.8-10.8)
[2024-07-08 09:26] LABS: Alanine Aminotransferase 21 U/L (0-31); Albumin Level 4.2 g/dL (3.5-5.0); Alkaline Phosphatase 51 U/L (39-117); Anion Gap 12 (12-20); Aspartate Amino Transferase 22 U/L (5-31); Bilirubin Total 0.3 mg/dL (0.0-1.0); Blood Urea Nitrogen 19 mg/dL (9-16); Calcium 9.1 mg/dL (8.4-10.2); Carbon Dioxide 28 mmol/L (22-29); Chloride 106 mmol/L (96-108); Cholesterol 244 mg/dL (<200); Estimated Glomerular Filt Rate > 60; Glucose Fasting 110 mg/dL (60-99); HDL Cholesterol 74 mg/dL (>40); LDL Cholesterol Calculated 137 mg/dL (<100); Potassium 4.3 mmol/L (3.3-5.1); Sodium 142 mmol/L (135-145); Total Protein 7.2 g/dL (6.5-8.0); Triglycerides 166 mg/dL (<150)
[2024-07-08 09:40] LABS: Thyroid Stimulating Hormone 0.99 uIU/mL (0.32-4.0)
== END 2024-07-08 08:15 | disposition home or self-care (01) ==
LOC: HO.LAB 08:14
PROVIDERS: PCP Internal Medicine; Visit Provider Internal Medicine
DX: D64.9 Anemia, unspecified (principal); E03.9 Hypothyroidism, unspecified; N28.9 Disorder of kidney and ureter, unspecified; E78.5 Hyperlipidemia, unspecified
CPT/HCPCS: 36415; 80053; 80061; 84443; 85025

== ENCOUNTER 2024-07-18 09:50 | Outpatient (AMB) | payer MEDICARE, SELFPAY ==
--- NOTE | 2024-07-18 09:56 | A.OFFPC_ITS ---
Vital Signs 07/18/24 09:57 Height 5 ft 2 in Weight 138 lb 6 oz BMI 25.3 BP 110/60 Blood Pressure Location Lt brachial Position Sitting Pulse 84 Pulse Source Pulse Oximeter Temp 97.1 F Temp Source Temporal Artery Scan Pulse Oximetry (%) 97 Oxygen Delivery Method Room Air Intake Visit Reasons: pe Intake Note: Patient is here today for a physical. Juvenile Officer Required: No Envelope Stamping Machine Operator: Not Required per policy Accompanied by: Self / Same As Patient Allergies acetaminophen [Percocet] Allergy (Unknown, Verified 07/18/24 09:57) pruritus Iodinated Contrast Media [CONTRAST, IV] Allergy (Unknown, Verified 07/18/24 09:57) DIZZY SPELLS oxycodone [From PERCOCET] Allergy (Unknown, Verified 07/18/24 09:57) ITCH Medication List - Last Reconciled 07/18/24 by Vivek Santamaria MD alendronate 70 mg PO QWEEK budesonide 32 mcg/actuation 1 spray intranasal BID calcium carbonate (Calcium 500) 1,000 mg PO DAILY dicyclomine 20 mg PO QID 30 days escitalopram oxalate 10 mg PO DAILY famotidine (Pepcid) 40 mg PO BEDTIME PRN hydrocortisone 2.5% 1 appl ID BID-QID PRN mecobalamin (vitamin B12) 1,000 mcg sublingual DAILY polyethylene glycol 3350 (Miralax) 17 grams PO BID 30 days riboflavin (vitamin B2) 400 mg PO DAILY simethicone (Gas-X Extra Strength) 125 mg PO BID-QID [super digestive enzymes 1 cap PO DAILY] valacyclovir (Valtrex) 500 mg PO DAILY wheat dextrin (Benefiber Sugar Free (dextrin)) 6 grams PO BID Tobacco use date assessed: 07/18/24 Fall risk assessment: No Falls in past year Last assessed Fall Risk: 07/18/24 Dental Screening Dental Screen Date: 07/18/24 Did you have a dental visit in the last 12 months?: Yes Did you have a dental problem in the last 6 months where you did not have access to dental care?: No Was dental information given to patient?: Patient has dentist HPI pe HPI Details osteoporosis on rx; gluten sensitivity; sees GI PFSH Medical History (Updated 07/18/24 @ 12:39 by Vivek Santamaria MD) Physical exam Constipation Sinusitis Acute diarrhea Surgical History Hx of colonoscopy Family History Mother No problems noted. Father No problems noted. Social History Household Members: Spouse Housing: House Alcohol intake: current Alcohol intake frequency: holidays/special occasions only Patient Tobacco Use Status: Former Tobacco user Tobacco use type: Cigarette e-Cigarette/Vaping Use: Never Used Second Hand Smoke Exposure: Yes service: No Current occupational status: employed Cognitive needs: No Hearing needs: No Vision needs: Yes (Glasses) Questionnaire PHQ-9 Over the last 2 weeks, how often have you been bothered by any of the following problems? 1. Little interest or pleasure in doing things: not at all 2. Feeling down, depressed, or hopeless: not at all 3. Trouble falling or staying asleep, or sleeping too much: not at all 4. Feeling tired or having little energy: not at all 5. Poor appetite or overeating: not at all 6. Feeling bad about yourself - or that you are a failure or have let yourself or your family down: not at all 7. Trouble concentrating on things, such as reading the newspaper or watching television: not at all 8. Moving or speaking so slowly that other people could have noticed. Or the opposite - being so fidgety or restless that you have been moving around a lot more than usual: not at all 9. Thoughts that you would be better off or of hurting yourself in some way: not at all Total score: 0 Depression Screening Interpretation: Negative Depression Screening Done: Yes Source: Developed by Drs. Shiraz Roach, Regi Anaya, Jaime Lopez and colleagues, with an educational krystin from [employer]. Thrive Questionnaire Date Thrive assessed: 07/16/24 I am a: Patient What is your living situation today?: I have a steady place to live Within the past 12 months, did the food you bought not last and you didn't have the money to get more?: Never true Within the past 12 months, did you worry whether your food would run out before you got money to buy more?: Never true Do you have trouble paying for medicines?: No Do you have trouble getting transportation to medical appointments?: No Do you have trouble paying your heating and electricity bill?: No Do you have trouble taking care of your child, family member or friend?: No Do you have trouble with day-to-day activities such as bathing, preparing meals, shopping, managing finances, etc.?: No Are you currently unemployed and looking for a job?: No Are you interested in more education?: No Please select the resources that you would like help with: None THRIVE Score: 0 AUDIT C Alcohol Use Questionnaire (AUDIT-C) 1. How often do you have a drink containing alcohol?: Never 3. How often do you have six or more drinks on one occasion?: Never Total Score: 0 SAMEER-7 AMB Questionnaire SAMEER-7 Date SAMEER - 7 assessed: 07/18/24 Feeling nervous, anxious, or on edge: 0 = Not at all Not being able to stop or control worryin = Not at all Worrying too much about different things: 0 = Not at all Trouble relaxin = Not at all Being so restless that it is hard to sit still: 0 = Not at all Becoming easily annoyed or irritable: 0 = Not at all Feeling afraid as if something awful might happen: 0 = Not at all Total SAMEER-7 score (0-4 normal; 5-9 mild; 10-14 moderate; 15-21 severe): 0 Source: Developed by Drs. Shiraz Roach, Regi Anaya, Jaime Lopez and colleagues, with an educational krystin from [employer]. Review of Systems Const Denies chills, Denies fatigue, Denies headache(s) and Denies weight loss Eyes Denies change in vision, Denies diplopia and Denies eye pain ENT Denies vertigo, Denies dizziness, Denies headache(s) and Denies nasal discharge Card Denies chest pain, Denies rapid heart rate and Denies dyspnea on exertion Resp Denies chest congestion, Denies cough, Denies pain with cough and Denies dyspnea on exertion GI Denies abdominal pain, Denies hematochezia and Denies change in bowel habits Musc Denies myalgias, Denies arthralgias and Denies joint swelling Skin/Breast Denies lesions and Denies unusual bruising Neuro Denies vertigo, Denies dizziness, Denies headache(s) and Denies focal weakness Endo Denies fatigue Physical exam (Primary Care) Vital Signs: Last Vital Signs Temp 97.1 F 07/18/24 09:57 Pulse 84 07/18/24 09:57 BP 110/60 07/18/24 09:57 Pulse Ox 97 07/18/24 09:57 Oxygen Delivery Method Room Air 07/18/24 09:57 BMI result Body Mass Index 25.3 Tobacco/Smoking Status: Tobacco use Status Tobacco use date assessed 07/18/24 07/18/24 10:04 Patient Tobacco Use Status Former Tobacco user 07/18/24 10:04 Tobacco use type Cigarette 07/18/24 10:04 e-Cigarette/Vaping Use Never Used 07/18/24 10:04 PHQ-9: PHQ-9 Score PHQ-9: Total score 0 07/18/24 10:04 Depression Screening Interpretation: Negative Thrive Assessment: Date of Thrive Assessment Date Thrive assessed 07/16/24 07/18/24 10:04 Const General: cooperative, healthy appearing and no acute distress Orientation/consciousness: oriented to person, oriented to place and oriented to time HENMT Head: Yes normal to inspection, Yes normocephalic and Yes atraumatic Mouth: Normal oral and palatal mucosa present and tongue normal Throat: Yes posterior oropharynx normal and Yes uvula midline Eyes General: appearance normal, both eyes and all related structures Neck Neck: Yes normal visual inspection, Yes full ROM and Yes no lymphadenopathy Thyroid: Thyroid normal Carotids: normal carotid upstroke Chest Chest palpation & inspection: normal inspection of the chest Resp Effort & Inspection: normal respiratory effort and able to speak in complete sentences Auscultation: clear to auscultation bilaterally Cardio Jugular venous distension: no JVD Palpation: normal PMI Rate: regular rate Rhythm: regular rhythm Heart sounds: S1 normal heart sound present and S2 normal heart sound present GI Inspection: Yes normal to inspection Palpation (GI): Soft to palpation and No hepatosplenomegaly present Auscultation: normal bowel sounds General: Yes no CVA tenderness Back/Spine/Pelvis Back: no CVA tenderness Skin General skin exam: no rashes or lesions noted Neuro General: oriented to person, oriented to place and oriented to time Extrem General: Yes normal to inspection and Yes full ROM Coding Level of Care Code Est Pt Prev Care >65y(99529) Diagnoses Physical exam Z00.00 Osteoporosis M81.0 Gluten enteropathy K90.41 Assessment & Plan Assessment & Plan (1) Physical exam: Code(s): Z00.00 - Encounter for general adult medical examination without abnormal findings Category: Medical Plan: stable (2) Osteoporosis: Code(s): M81.0 - Age-related osteoporosis without current pathological fracture Category: Medical Plan: stable; same rx (3) Gluten enteropathy: Code(s): K90.41 - Non-celiac gluten sensitivity Category: Medical Plan: stable; per gi
[2024-07-18 09:57] VITALS: BP 110/60; PULSE 84; TEMP 36.2; O2SAT 97; BMI 25.3
--- OUTSIDE RECORDS SUMMARY | 2024-07-18 11:16 | XMS_ITS ---
Author Organization [facility] Address [address] [address] Care Team Providers Care Anode Machine Operator Name Role Phone Vivek Santamaria Primary Care Provider ITZEL [place] Unavailable [phone] REASON FOR VISIT 4wk Encounters Encounter Location Date Provider Diagnosis [facility] [address] [address] 03/22/2024 ITZEL GUSMAN Plan Of Treatment No Information Progress Notes * Nancie CASTILLONanciOB:1955 ( 68 yo F)Acc No.[id number]:03/22/2024 Progress Note Patient:?Lindsey CASTILLO Provider:?Itzel Morrison DPM :1955???Age:68 Y???Sex:Female D ate:03/22/2024 Phone: Address:[address] [place] [address] [id number] Pcp:Vivek Santamaria Subjective: * Chief Complaints: * ???1. 4wk. * Medical History:? Objective: * Vitals:? Assessment: Plan: * Treatment: * Billing Information: * Visit Code:? * Procedure Codes:? * Electronic signature of TAM GUSMAN D.P.M. on 07/18/2024 at 11:15 AM EST Sign off status: Pending * Provider:?Itzel Morrison DPM Date:?03/22 Generated for Kesha harper/Isa/Chrissieitting on:?07/18/2024 11:15 AM EST
--- OUTSIDE RECORDS SUMMARY | 2024-07-18 11:16 | XMS_ITS | Patient Health Record ---
[facility] [place] Address [address] [facility] [place] [address] Care Team Providers Care Inspector Balance Bridge Name Role Phone Rosalio RAMIREZ, Vivek Primary Care Provider Hemanta ashlee Rosey Márqueze Unavailable [phone] Allergies Allergen (clinical drug ingredient) Drug/Non Drug [...] Status W/U Status Risk Notes Problem Capsulitis (8272827) Capsulitis (726.90) Active confirmed Problem Pain in limb (97870907) Pain in Limb (729.5) Active confirmed Problem Hammer toe (276181350) Hammer toe (735.4) Active confirmed Problem Metatarsalgia (19931982) Metatarsalgia (726.70) Active confirmed Problem Neuroma (162183302) 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) Active confirmed Problem Pain in limb (45023505) Pain in Limb (729.5) Active confirmed Problem Verruca plantaris (40698224) Verruca Plantaris (078.19) Active confirmed Problem Disorder of sebaceous gland (9298535) Xerosis (706.8) Active confirmed Plan Of Treatment Pending Test Test Name Order Date X ray : Foot, left 3V 04/01/2013 32283-Vgsb Destruction, -08/01/2011 31649-Puzz Destruction, -08/22/2011 73093-Soox Destruction, -09/26/2011 66560-Geks Destruction, 06-0411/03/2011 47053-Tscu Destruction, 06-0404/01/2013 52755- Debride <25 sq cm 05/24/2013 70334, J0702- Neuroma/Injection 08/24/19 14 80649- Biopsy of skin lesion 05/03/2013 Insurance Providers Payer Name Payer Address Payer Phone Subscriber Number Group Number Insured Name Patient Relationship to Insured Coverage Start Date Coverage End Date [employer]age [address] [place] [address] Lindsey Castillo Self - patient is the insured Medical (General) History Medical History History ICD Code thyroid disorder mumps chicken pox Surgical History Surgery Date(Month/Year) section
--- OUTSIDE RECORDS SUMMARY | 2024-07-18 11:16 | XMS_ITS ---
Author Organization [facility] Address [address] [address] Care Team Providers Care Marketing Secretary Name Role Phone Vivek Santamaria Primary Care Provider TANNRE [place] Unavailable [phone] REASON FOR VISIT Medical records Encounters Encounter Location Date Provider Diagnosis [facility] [address] [address] 03/29/2024 TANNER GUSMAN Plan Of Treatment No Information Progress Notes * Rosmery AZULOB:1955 ( 68 yo F)Acc No.[id number]:03/29/2024 Patient:?Lindsey AZUL :1955???Age:68 Y???Sex:Female Phone: Address:[address] [place] [address] [place] [id number] * true * Date:? Generated for Kesha harper/Isa/eTransmitting on:?07/18/2024 11:15 AM EST
== END 2024-07-18 11:37 | disposition home or self-care (01) ==
PROVIDERS: PCP Internal Medicine; Visit Provider Internal Medicine
DX: Z00.00 Encounter for general adult medical examination without abnormal findings (principal); M81.0 Age-related osteoporosis without current pathological fracture; K90.41 Non-celiac gluten sensitivity

== ENCOUNTER → 2024-07-18 09:50 | Outpatient (BNVA) | payer MEDICARE, SELFPAY | PROVIDERS: PCP Internal Medicine; Visit Provider Internal Medicine | DX: Z00.00 Encounter for general adult medical examination without abnormal findings (principal); M81.0 Age-related osteoporosis without current pathological fracture; K90.41 Non-celiac gluten sensitivity | CPT/HCPCS: 99397 ==

== ENCOUNTER 2024-10-29 09:23 | Outpatient (AMB) | payer MEDICARE, SELFPAY ==
--- NOTE | 2024-10-29 09:26 | A.OFFVIS_ITS ---
Vital Signs 10/29/24 09:46 Height 5 ft 2 in Weight 139 lb BMI 25.4 BP 144/66 H Blood Pressure Location Rt brachial Position Sitting Pulse 78 Pulse Source Pulse Oximeter Pulse Oximetry (%) 96 Oxygen Delivery Method Room Air Intake Visit Reasons: 6 mos FUV. Intake Note: Established patient for mgmt of GERD + IBS. CC; C.O. intermittent IBS + GERD episodes. Pt states that the dicyclomine still helps control their IBS sx. However, the famotidine was not helping to control their GERD sx. Pt also requests refill of dicyclomine at this visit. Lab Specialist Required: No Accompanied by: Self / Same As Patient Allergies acetaminophen [Percocet] Allergy (Unknown, Verified 10/29/24 09:29) pruritus Iodinated Contrast Media [CONTRAST, IV] Allergy (Unknown, Verified 10/29/24 09:29) DIZZY SPELLS oxycodone [From PERCOCET] Allergy (Unknown, Verified 10/29/24 09:29) ITCH HPI HPI 6 mos FUV.: Details: Assessment & Plan (1) Irritable bowel syndrome with both constipation and diarrhea: Code(s): K58.2 - Mixed irritable bowel syndrome Category: Medical (2) GERD (gastroesophageal reflux disease): Code(s): K21.9 - Gastro-esophageal reflux disease without esophagitis Category: Medical Plan She had 2 bad episodes of severe diarrhea since I last saw her, it was preceded by a huge pain across the lower abd. But she did not take the bentyl right away. After a while the sx resolved, and she was worried because she took 3 a day, I reassure her that one can safely take up to 8 a day at the 20mg dose so that she is not fearful of using it more assertively. With this and the suggestion that she take it when she gets the pain I think she will do better. She still has the GERD when she bends over, but she will try 2 at once when this happens. ROV 6 mos. Medications: Refilled polyethylene glycol 3350 (Miralax) 17 grams PO BID 1,020 grams 6RF 30 days K59.00 - Constipation, unspecified dicyclomine 20 mg PO QID 120 tabs 6RF 30 days simethicone (Gas-X Extra Strength) 125 mg PO BID-QID 90 caps 6RF famotidine (Pepcid) 40 mg PO BEDTIME PRN 30 tabs 6RF heartburn TODAY'S VISIT She stopped the famotidine as it did not help with her bending GERD. She DID do well taking her husbands prilosec - but I am concerned that this can cause diarrhea. She IS better with the bentyl 40mg bid, but still has problems about once a month wtih diarrhea and can't leave the house. (? coincide with the o2o). We will move to imipramine 1mg and titrate to effect for s/e and she will hold the bentyl or use it only if she has breakthrough until we can titrate. She has fiber and mirlax in case of CIC. ROV 6 week. [facility] Medical History (Updated 10/29/24 @ 09:38 by TONY Keene) Physical exam Constipation Sinusitis Acute diarrhea Surgical History Hx of colonoscopy Family History Mother No problems noted. Father No problems noted. Social History Household Members: Spouse Housing: House Alcohol intake: current Alcohol intake frequency: holidays/special occasions only Patient Tobacco Use Status: Former Tobacco user Tobacco use type: Cigarette e-Cigarette/Vaping Use: Never Used Second Hand Smoke Exposure: Yes service: No Current occupational status: employed Cognitive needs: No Hearing needs: No Vision needs: Yes (Glasses) Review of Systems Const Denies fatigue, Denies fever(s), Denies night sweats, Denies poor appetite and Denies weight loss Eyes Details: glasses Reports requires corrective lenses ENT Reports Normal hearing present, Denies dental pain, Denies dysphagia, Denies hearing loss, Denies mouth pain, Denies odynophagia, Denies throat swelling, Denies tongue swelling and Reports other (Dentition adequate) Card Reports no additional complaints Resp Reports no additional complaints GI Details: Denies abdominal pain, Denies melena, Reports bloating, Denies hematochezia, Reports constipation, Reports GI cramping, Denies dysphagia, Reports excessive flatus, Denies early satiety, Reports heartburn, Reports diarrhea, Denies nausea, Denies odynophagia, Denies vomiting and Denies hematemesis Skin/Breast Denies pruritus, Denies lesions, Denies rash and Denies jaundice Neuro Reports Normal hearing present and Denies Abnormal speech present Endo Denies fatigue Aller/Immun Denies throat swelling and Denies tongue swelling Physical Exam Const General: cooperative, no acute distress, well developed and well groomed Nutritional Appearance: average body habitus and well nourished Orientation/consciousness: oriented to person, oriented to place and oriented to time Limitations: No language barrier HEENT Head: Yes normocephalic and Yes atraumatic Eyes General: appearance normal, both eyes and all related structures Pupils: Equal, round and reactive pupils present Neck Neck: Yes normal visual inspection and Yes no lymphadenopathy Thyroid: Thyroid normal Resp Effort & Inspection: normal respiratory effort and able to speak in complete sentences Auscultation: clear to auscultation bilaterally Cardio Rate: regular rate Rhythm: regular rhythm Heart sounds: Normal, physiologic split S2 sound present Peripheral pulses: radial pulses present and posterior tibial pulses present GI Inspection: No distended and No Abdominal panniculus present Palpation (GI): Soft to palpation, nontender, no guarding, not rigid and No hepatosplenomegaly present Percussion: Yes normal to percussion Auscultation: normal bowel sounds Rectal Exam - Female: deferred Skin General skin exam: no rashes or lesions noted, turgor normal, skin not dry, no jaundice, No spider nevi and no striae Rashes: no rashes Nails: normal Neuro General: oriented to person, oriented to place and oriented to time Cranial nerves: Yes Equal, round and reactive pupils present and Yes Normal hearing present Speech: No Abnormal speech present Extrem General: Yes normal to inspection, No clubbing, No cyanosis and No edema Psych Appearance: grossly normal and well kempt Mental Status: mental status grossly normal Speech and movement: Normal speech and movement present Affect: normal affect Attitude: cooperative Thought process: Normal thought process present and not confabulating Thought content: Normal thought content present Insight: Fair insight present (Psych) Judgement: Fair judgement present (Psych) Assessment & Plan Assessment & Plan (1) Irritable bowel syndrome with both constipation and diarrhea: Code(s): K58.2 - Mixed irritable bowel syndrome Category: Medical (2) Abdominal cramping: Code(s): R10.9 - Unspecified abdominal pain Category: Medical (3) GERD (gastroesophageal reflux disease): Code(s): K21.9 - Gastro-esophageal reflux disease without esophagitis Category: Medical (4) Gluten enteropathy: Code(s): K90.41 - Non-celiac gluten sensitivity Category: Medical Plan She stopped the famotidine as it did not help with her bending GERD. She DID do well taking her husbands prilosec - but I am concerned that this can cause diarrhea. She IS better with the bentyl 40mg bid, but still has problems about once a month wtih diarrhea and can't leave the house. (? coincide with the o2o). We will move to imipramine 1mg and titrate to effect for s/e and she will hold the bentyl or use it only if she has breakthrough until we can titrate. She has fiber and mirlax in case of CIC. ROV 6 week. Medications: New imipramine HCl 10 mg PO BEDTIME 30 days 30 tabs 1RF pantoprazole 20 mg PO DAILY 30 tabs 6RF K21.9 - Gastro-esophageal reflux disease without esophagitis Refilled simethicone (Gas-X Extra Strength) 125 mg PO BID-QID 90 caps 6RF polyethylene glycol 3350 (Miralax) 17 grams PO BID 30 days 1,020 grams 6RF K59.00 - Constipation, unspecified wheat dextrin (Benefiber Sugar Free (dextrin)) mix into at least 4 oz water or juice before administering 6 grams PO BID 248 grams 6RF K58.2 - Mixed irritable bowel syndrome On Hold dicyclomine Hold Comment: Doctor's Order 20 mg PO QID 30 days 120 tabs 6RF Coding Level of Care Code Est Pt Level 3 (60745) Diagnoses Irritable bowel syndrome with both constipation and diarrhea K58.2 Abdominal cramping R10.9 GERD (gastroesophageal reflux disease) K21.9 Gluten enteropathy K90.41
[2024-10-29 09:46] VITALS: BP 144/66; PULSE 78; O2SAT 96; BMI 25.4
--- OUTSIDE RECORDS SUMMARY | 2024-10-29 10:18 | XMS_ITS ---
Author Organization [facility] Address [address] [address] Care Team Providers Care Stone Dresser Name Role Phone Vivek Santamaria Primary Care Provider ITZEL [place] Unavailable [phone] REASON FOR VISIT 4wk Encounters Encounter Location Date Provider Diagnosis [facility] [address] [address] 03/22/2024 ITZEL GUSMAN Plan Of Treatment No Information Progress Notes * Nancie CASTILLONanciOB:1955 ( 69 yo F)Acc No.[id number]:03/22/2024 Progress Note Patient:?Lindsey CASTILLO Provider:?Itzel Morrison DPM :1955???Age:68 Y???Sex:Female D ate:03/22/2024 Phone: Address:[address] [place] [address] [id number] Pcp:Vivek Santamaria Subjective: * Chief Complaints: * ???1. 4wk. * Medical History:? Objective: * Vitals:? Assessment: Plan: * Treatment: * Billing Information: * Visit Code:? * Procedure Codes:? * Electronic signature of TAM GUSMAN D.P.M. on 10/29/2024 at 10:18 AM EDT Sign off status: Pending * Provider:?Itzel Morrison DPM Date:?03/22 Generated for Kesha harper/Isa/eTransmitting on:?10/29/2024 10:18 AM EDT
== END 2024-10-29 09:59 | disposition home or self-care (01) ==
LOC: HO.HGI 09:23
PROVIDERS: PCP Internal Medicine; Visit Provider Nurse Practitioner
DX: K58.2 Mixed irritable bowel syndrome (principal); R10.9 Unspecified abdominal pain; K21.9 Gastro-esophageal reflux disease without esophagitis; K90.41 Non-celiac gluten sensitivity
CPT/HCPCS: 99213

== ENCOUNTER → 2024-10-29 09:23 | Outpatient (BNVA) | payer MEDICARE, SELFPAY | PROVIDERS: PCP Internal Medicine; Visit Provider Nurse Practitioner | DX: K58.2 Mixed irritable bowel syndrome (principal); R10.9 Unspecified abdominal pain; K21.9 Gastro-esophageal reflux disease without esophagitis; K90.41 Non-celiac gluten sensitivity | CPT/HCPCS: 99212 ==

== ENCOUNTER 2024-11-28 16:53 | Outpatient (REF) | payer MEDICARE, SELFPAY ==
--- OUTSIDE RECORDS SUMMARY | 2024-11-28 16:55 | XMS_ITS | Patient Health Record ---
Author Organization [facility] [place] Address [address] [place] [address] Care Team Providers Care Director Of Financial Aid Name Role Phone Rosalio RAMIREZ, Vivek Primary Care Provider Unavaila ble Bailey Márquez Unavailable [phone] Allergies Allergen (clinical drug ingredient) Drug/Non Drug Allergy documented on EMR Reaction Allergy Type Onset Date Status acetaminophen / oxycodone Percocet itching Drug Allergy Active Reason For Referral No Information Medications Medication SIG (Take, Route, Fr equency, Duration) Notes Start Date End Date Status Urea 40% APPLY TO AFFECTED AR EA TWICE A DAY EXTERNALLY; Duration: 30 Active Custom Orthotics as directed A ctive Custom Orthotics as directed 09/25/2013 Active Valtrex 500 MG 1 tablet Orally ever y 12 hrs; Duration: 10 day(s) Active Work Note . . . 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) Active confirmed Problem Information temporarily unavailable Pain in Limb (729.5) Active confirmed Problem Information temporarily unavailable Verruca Plantaris (078.19) Active confirmed Problem Information temporarily unavailable Xerosis (706.8) Active confirmed Plan Of Treatment Pending Test Test Name Order Date X ray : Foot, left 3V 04/01/2013 [id number] Destruction, -08/01/2011 24691-Oqij Destruction, 06-0408/22/2011 05826-Eedu Destruction, 06-0409/26/2011 71423-Xoyf Destruction, 06-0411/03/2011 60392-Efhb Destruction, 06-0404/01/2013 66244- Debride <25 sq cm 05/24/2013 61200, J0702- Neuroma/Injection 08/24/19 14 10662- Biopsy of skin lesion 05/03/2013 Insurance Providers Payer Name Payer Address Payer Phone Subscriber Number Group Number Insured Name Patient Relationship to Insured Coverage Start Date Coverage End Date [employer]vantage [address] [place] [address] [phone] Lindsey Castillo Self - patient is the insured Medical (General) History Medical History History ICD Code thyroid disorder mumps chicken pox Surgical History Surgery Date(Month/Year) section
--- OUTSIDE RECORDS SUMMARY | 2024-11-28 16:55 | XMS_ITS | Patient Health Record ---
Author Organization [facility] Address [address] [place] [address] Care Team Providers Care Gang Vibrator Operator Name Role Phone Shiraz Sanchez Unavailable [phone] Reason For Referral No Information Plan Of Treatment No Information
[2024-11-28 17:14] LABS: Hematocrit 39.8 % (37.0-47.0); Hemoglobin 13.3 g/dl (12.0-16.0); Mean Corpuscular HGB Conc 33.4 g/dl (31.0-35.0); Mean Corpuscular Hemoglobin 33.3 pg (27.0-33.0); Mean Corpuscular Volume 99.7 fL (80.0-98.0); NRBC Abs Auto 0.000 X10*3/uL (0.0-0.012); NRBC Pct Auto 0.0 /100WBC (0.0-0.2); Platelet Count 357 X10*3/uL (160-400); Red Blood Count 3.99 X10*6/uL (4.20-5.50); White Blood Count 9.5 X10*3/uL (4.8-10.8)
[2024-11-28 18:10] LABS: Alanine Aminotransferase 32 U/L (0-31); Albumin Level 4.4 g/dL (3.5-5.0); Alkaline Phosphatase 60 U/L (39-117); Anion Gap 11 (12-20); Aspartate Amino Transferase 26 U/L (5-31); Blood Urea Nitrogen 8 mg/dL (9-16); Calcium 9.1 mg/dL (8.4-10.2); Carbon Dioxide 30 mmol/L (22-29); Chloride 104 mmol/L (96-108); Estimated Glomerular Filt Rate > 60; Potassium 4.0 mmol/L (3.3-5.1); Sodium 141 mmol/L (135-145); Total Protein 7.1 g/dL (6.5-8.0)
[2024-11-28 18:49] LABS: CDiff Gene PCR NEGATIVE (Negative)
== END 2024-11-28 16:54 | disposition home or self-care (01) ==
LOC: HO.LAB 16:53
PROVIDERS: Visit Provider Internal Medicine
DX: R19.7 Diarrhea, unspecified (principal); R10.9 Unspecified abdominal pain
CPT/HCPCS: 36415; 80053; 85027; 87493; 87507

== ENCOUNTER 2024-12-19 09:26 | Outpatient (AMB) | payer MEDICARE, SELFPAY ==
--- OUTSIDE RECORDS SUMMARY | 2024-03-22 05:45 | XMS_ITS ---
Author Organization [facility] Address [address] [address] Care Team Providers Care Inside Wireman Name Role Phone Vivek Santamaria Primary Care Provider TANNER [place] Unavailable [phone] REASON FOR VISIT 4wk Encounters Encounter Location Date Provider Diagnosis [facility] [address] [address] 03/22/2024 TANNER GUSMAN Plan Of Treatment No Information Progress Notes * Nancie CASTILLONanciOB:1955 ( 69 yo F)Acc No.[id number]:03/22/2024 Progress Note Patient: Lindsey YIP Provider: Emiliano Morrison DPMali :1955 A ge:68 Y S ex:Female Date:03/22/2024 Phone: Address:[address] [place] [address] [address] [place] [address] [id number] Pcp:Vivek Santamaria Subjective: * Chief Complaints: * 1 . 4wk. * Medical History: Objective: * Vitals: Assessment: Plan: * Treatment: * Billing Information: * Visit Code: * Procedure Codes: * Electronic signature of TAM GUSMAN D.P.M. on 12/19/2024 at 09:45 AM EDT Sign off status: Pending * Provider: Emiliano Morrison DPM Date: 05/22/2023 Generated for Kesha harper/Isa/Saulsmitting on: 0 12/19/2024 09:45 AM EDT
--- NOTE | 2024-12-19 09:27 | MHC.OFFVIS ---
Vital Signs 12/19/24 09:30 Height 5 ft 2 in Weight 130 lb 1.164 oz BMI 23.8 BP 131/59 L Blood Pressure Location Lt brachial Position Sitting Pulse 98 Intake Visit Reasons: 6 wks appt Intake Note: Lindsey presents in the office as a 6 week follow up. CC: She states that she was having severe diarrhea for a week and she states that she had to do a stool and blood test. She states she does get pains in the stomach and has to go to the bathroom. She stopped miralax and benefiber because she was getting a lot of painful gas. 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: No Allergies acetaminophen (Percocet) Allergy (Unknown, Verified 12/19/24 09:30) pruritus Iodinated Contrast Media (CONTRAST, IV) Allergy (Unknown, Verified 12/19/24 09:30) DIZZY SPELLS oxycodone (From PERCOCET) Allergy (Unknown, Verified 12/19/24 09:30) ITCH HPI HPI 6 wks appt: Details: Assessment & Plan (1) Irritable bowel syndrome with both constipation and diarrhea: Code(s): K58.2 - Mixed irritable bowel syndrome Category: Medical (2) Abdominal cramping: Code(s): R10.9 - Unspecified abdominal pain Category: Medical (3) GERD (gastroesophageal reflux disease): Code(s): K21.9 - Gastro-esophageal reflux disease without esophagitis Category: Medical (4) Gluten enteropathy: Code(s): K90.41 - Non-celiac gluten sensitivity Category: Medical Plan She stopped the famotidine as it did not help with her bending GERD. She DID do well taking her husbands prilosec - but I am concerned that this can cause diarrhea. She IS better with the bentyl 40mg bid, but still has problems about once a month wtih diarrhea and can't leave the house. (? coincide with the o2o). We will move to imipramine 1mg and titrate to effect for s/e and she will hold the bentyl or use it only if she has breakthrough until we can titrate. She has fiber and mirlax in case of CIC. ROV 6 week. Medications: New imipramine HCl 10 mg PO BEDTIME 30 days 30 tabs 1RF pantoprazole 20 mg PO DAILY 30 tabs 6RF K21.9 - Gastro-esophageal reflux disease without esophagitis Refilled simethicone (Gas-X Extra Strength) 125 mg PO BID-QID 90 caps 6RF polyethylene glycol 3350 (Miralax) 17 grams PO BID 30 days 1,020 grams 6RF K59.00 - Constipation, unspecified wheat dextrin (Benefiber Sugar Free (dextrin)) mix into at least 4 oz water or juice before administering 6 grams PO BID 248 grams 6RF K58.2 - Mixed irritable bowel syndrome On Hold dicyclomine Hold Comment: Doctor's Order 20 mg PO QID 30 days 120 tabs 6RF Laboratory Tests 07/08/24 11/28/24 11/28/24 08:24 16:40 17:00 WBC 9.5 Hgb 13.3 Hct 39.8 MCV 99.7 H MCH 33.3 H Plt Count 357 Estimated GFR > 60 Total Bilirubin 0.2 AST 26 ALT 32 H Alkaline Phosphatase 60 TSH 0.99 C. difficile Tox B Gene NEGATIVE CORRESPONDENCE On 11/21/24 @ 09:06 Sonya Salgado Wrote To Sonya Salgado (2) And the Pepto-Bismol was probably constipating her. She can take both the imipramine am with dicyclomine together and I suggest she do that until we can up the dose can get that is stabilized. On 11/20/24 @ 15:14 Patti Wilson Wrote To Sonya Salgado patient reports that she did take Pepto Bismol - I did inform her this is why her stools are black. patient reports that she feels better when she doesn't eat and because of not eating much she states she is not taking all of her medications as prescribed. patient did report that this has been on and off for about 5 days. patient does report taking fiber and miralax in the morning but she states she feels this does not seem to help. patient Imipramine prior to symptoms and she felt it was helpful but she has been holding it since. patient is taking the dicyclomine due to severe cramping, did tell her this is likely due to the frequent diarrhea. On 11/20/24 @ 15:07 Sonya Salgado Wrote To Gastro Nurses Please find out if she is tolerating the imipramine, we can increase the dose on this if needed. On 11/20/24 @ 15:04 Tammie Chan Wrote To DamianAugust (2) Patient LVM on MA line and states that she is having cramps in her stomach, black stools, diarrhea with constipation. It looks like she does have a follow up 12/19 @ 930! TODAY'S VISIT had fever and likely GI virus, then Lindsey. Stopped Miralax and fiber, was taking imipramine in am (she thought we told her to do this, NO!), move to qhs, increase to 2 qhs. Ok to take bentyl - no s/e except dry mouth. Moving bowels better in general with TCA, likely this is coordinating peristalsis better. She still would have mild stomach ache qhs, so this is why the dose increase. ROV 6 weeks. [facility] Medical History Physical exam Constipation Sinusitis Acute diarrhea Surgical History Hx of colonoscopy Family History Mother No problems noted. Father No problems noted. Social History Household Members: Spouse Housing: House Alcohol intake: current Alcohol intake frequency: holidays/special occasions only Patient Tobacco Use Status: Former Tobacco user Tobacco use type: Cigarette e-Cigarette/Vaping Use: Never Used Second Hand Smoke Exposure: Yes service: No Current occupational status: employed Cognitive needs: No Hearing needs: No Vision needs: Yes (Glasses) Review of Systems Const Denies fatigue, Denies fever(s), Denies night sweats, Denies poor appetite and Denies weight loss Eyes Details: glasses Reports requires corrective lenses ENT Reports Normal hearing present, Denies dental pain, Denies dysphagia, Denies hearing loss, Denies mouth pain, Denies odynophagia, Denies throat swelling, Denies tongue swelling and Reports other (Dentition adequate) Card Reports no additional complaints Resp Reports no additional complaints GI Details: Denies abdominal pain, Denies melena, Denies bloating, Denies hematochezia, Denies constipation, Reports GI cramping, Denies dysphagia, Denies excessive flatus, Denies early satiety, Denies heartburn, Denies diarrhea, Reports loose stools, Denies nausea, Denies odynophagia, Denies vomiting and Denies hematemesis Skin/Breast Denies pruritus, Denies lesions, Denies rash and Denies jaundice Neuro Reports Normal hearing present and Denies Abnormal speech present Endo Denies fatigue Aller/Immun Denies throat swelling and Denies tongue swelling Physical Exam Vital Signs: Last Vital Signs Pulse 98 12/19/24 09:30 BP 131/59 L 12/19/24 09:30 BMI result Body Mass Index 23.8 Const General: cooperative, no acute distress, well developed and well groomed Nutritional Appearance: well nourished Orientation/consciousness: oriented to person, oriented to place and oriented to time Limitations: No language barrier HEENT Head: Yes normocephalic and Yes atraumatic Eyes General: appearance normal, both eyes and all related structures Pupils: Equal, round and reactive pupils present Neck Neck: Yes normal visual inspection and Yes no lymphadenopathy Thyroid: Thyroid normal Resp Effort & Inspection: normal respiratory effort and able to speak in complete sentences Auscultation: clear to auscultation bilaterally Cardio Rate: regular rate Rhythm: regular rhythm Heart sounds: Normal, physiologic split S2 sound present Peripheral pulses: radial pulses present and posterior tibial pulses present GI Inspection: No distended and No Abdominal panniculus present Palpation (GI): Soft to palpation, nontender, no guarding, not rigid and No hepatosplenomegaly present Percussion: Yes normal to percussion Auscultation: normal bowel sounds Rectal Exam - Female: deferred Skin General skin exam: no rashes or lesions noted, turgor normal, skin not dry, no jaundice, No spider nevi and no striae Rashes: no rashes Nails: normal Neuro General: oriented to person, oriented to place and oriented to time Cranial nerves: Yes Equal, round and reactive pupils present and Yes Normal hearing present Speech: No Abnormal speech present Extrem General: Yes normal to inspection, No clubbing, No cyanosis and No edema Psych Appearance: grossly normal and well kempt Mental Status: mental status grossly normal Speech and movement: Normal speech and movement present Affect: normal affect Attitude: cooperative Thought process: Normal thought process present and not confabulating Thought content: Normal thought content present Insight: Good insight present (Psych) Judgement: Good judgement present (Psych) Assessment & Plan Assessment & Plan (1) Irritable bowel syndrome with both constipation and diarrhea: Code(s): K58.2 - Mixed irritable bowel syndrome Category: Medical (2) GERD (gastroesophageal reflux disease): Code(s): K21.9 - Gastro-esophageal reflux disease without esophagitis Category: Medical (3) Abdominal cramping: Code(s): R10.9 - Unspecified abdominal pain Category: Medical (4) Gluten enteropathy: Code(s): K90.41 - Non-celiac gluten sensitivity Category: Medical Plan had fever and likely GI virus, then Lindsey. Stopped Miralax and fiber, was taking imipramine in am (she thought we told her to do this, NO!), move to qhs, increase to 2 qhs. Ok to take bentyl - no s/e except dry mouth. Moving bowels better in general with TCA, likely this is coordinating peristalsis better. She still would have mild stomach ache qhs, so this is why the dose increase. ROV 6 weeks. Medications: Changed From imipramine HCl 10 mg PO BEDTIME 30 days 30 tabs 1RF R10.9 - Unspecified abdominal pain To imipramine HCl 20 mg (2 x 10 mg) PO BEDTIME 60 tabs 6RF 30 days R10.9 - Unspecified abdominal pain Refilled pantoprazole 20 mg PO DAILY 30 tabs 6RF K21.9 - Gastro-esophageal reflux disease without esophagitis Resumed dicyclomine 20 mg PO QID 120 tabs 6RF 30 days dicyclomine 20 mg PO QID 30 days 120 tabs 6RF Coding Level of Care Code Est Pt Level 3 (29312) Diagnoses Irritable bowel syndrome with both constipation and diarrhea K58.2 GERD (gastroesophageal reflux disease) K21.9 Abdominal cramping R10.9 Gluten enteropathy K90.41
[2024-12-19 09:30] VITALS: BP 131/59; PULSE 98; BMI 23.8
--- OUTSIDE RECORDS SUMMARY | 2024-12-19 09:46 | XMS_ITS | Patient Health Record ---
Author Organization [facility] Address [address] [place] [address] Care Team Providers Care Fisheries Management Biologist Name Role Phone Shiraz Sanchez Unavailable [phone] Reason For Referral No Information Plan Of Treatment No Information
--- OUTSIDE RECORDS SUMMARY | 2024-12-19 09:46 | XMS_ITS | Patient Health Record ---
Author Organization [facility] [place] Address [address] [place] [address] Care Team Providers Care Environmental Engineering Technician Name Role Phone Rosalio RAMIREZ, Vivek Primary Care Provider Unavaila ble Bailey Márquez Unavailable [phone] Allergies Allergen (clinical drug ingredient) Drug/Non Drug [...] X ray : Foot, left 3V 04/01/2013 [id number] Destruction, -08/01/2011 51017-Mstq Destruction, 06-0408/22/2011 32096-Yazq Destruction, 06-0409/26/2011 98062-Rrqp Destruction, 06-0411/03/2011 10729-Ahmq Destruction, 06-0404/01/2013 73905- Debride <25 sq cm 05/24/2013 43619, J0702- Neuroma/Injection 08/24/19 14 50374- Biopsy of skin lesion 05/03/2013 Insurance Providers Payer Name Payer Address Payer Phone Subscriber Number Group Number Insured Name Patient Relationship to Insured Coverage Start Date Coverage End Date [employer] [place] [employer]vantage [address] [place] [address] [phone] Lindsey Castillo Self - patient is the insured Medical (General) History Medical History History ICD Code thyroid disorder mumps chicken pox Surgical History Surgery Date(Month/Year) section
== END 2024-12-19 10:21 | disposition home or self-care (01) ==
LOC: HO.HGI 09:27
PROVIDERS: PCP Internal Medicine; Visit Provider Nurse Practitioner
DX: K58.2 Mixed irritable bowel syndrome (principal); K21.9 Gastro-esophageal reflux disease without esophagitis; R10.9 Unspecified abdominal pain; K90.41 Non-celiac gluten sensitivity
CPT/HCPCS: 99213

== ENCOUNTER → 2024-12-19 09:26 | Outpatient (BNVA) | payer MEDICARE, SELFPAY | PROVIDERS: PCP Internal Medicine; Visit Provider Nurse Practitioner | DX: K58.2 Mixed irritable bowel syndrome (principal); R10.9 Unspecified abdominal pain; K21.9 Gastro-esophageal reflux disease without esophagitis; K90.41 Non-celiac gluten sensitivity | CPT/HCPCS: 99212 ==

== ENCOUNTER 2024-12-27 19:42 | Emergency (ER) | payer MEDICARE, SELFPAY ==
--- OUTSIDE RECORDS SUMMARY | 2024-03-22 05:45 | XMS_ITS ---
Author Organization [facility] Address [address] [address] Care Team Providers Care Questioned Documents Examiner Name Role Phone Vivek Santamaria Primary Care Provider TANNER [place] Unavailable [phone] REASON FOR VISIT 4wk Encounters Encounter Location Date Provider Diagnosis [facility] [address] [address] 03/22/2024 TANNER GUSMAN Plan Of Treatment No Information Progress Notes * Nancie CASTILLONanciOB:1955 ( 69 yo F)Acc No.[id number]:03/22/2024 Progress Note Patient: Lindsey YIP Provider: Emiliano Morrison DPMali :1955 A ge:68 Y S ex:Female Date:03/22/2024 Phone: Address:[address] [place] [address] [address] [place] [id number] Pcp:Vivek Santamaria Subjective: * Chief Complaints: * 1 . 4wk. * Medical History: Objective: * Vitals: Assessment: Plan: * Treatment: * Billing Information: * Visit Code: * Procedure Codes: * Electronic signature of TAM GUSMAN D.P.M. on 12/27/2024 at 09:03 PM EDT Sign off status: Pending * Provider: Emiliano Morrison DPM Date: 05/22/2023 Generated for Kesha harper/Isa/eTjingsmitting on: 0 12/27/2024 09:03 PM EDT
--- NOTE | ~2024-12-27 | CT_ITS ---
CLINICAL HISTORY: head strike, pain, injury CT maxillofacial without contrast Comparison: None provided Findings: No acute fractures. Temporomandibular joints are intact. Paranasal sinuses and mastoid air cells clear. Orbital contents within normal limits. Visualized intracranial contents are within normal limits. No foreign bodies. IMPRESSION: Unremarkable maxillofacial CT. This document has been electronically signed by: Michael Stauffer MD on 12/27/2024 21:25:15
--- NOTE | ~2024-12-27 | CT_ITS ---
CLINICAL HISTORY: head strike, pain, injury CT cervical spine without contrast Comparison: None provided Findings: Normal vertebral body alignment. There is degenerative change. No acute fractures or dislocations. No acute findings on limited view of the intracranial contents. Soft tissues of the neck are normal. No consolidation or effusion at the lung apices. IMPRESSION: No acute findings. This document has been electronically signed by: Michael Stauffer MD on 12/27/2024 21:21:15
--- NOTE | ~2024-12-27 | CT_ITS ---
CLINICAL HISTORY: head strike, pain, injury CT head without contrast Comparison: MR/SR - MR BRAIN WITHOUT THEN WITH IV CONTRAST - 07/28/22 12:[address]/SR - CT HEAD WITHOUT IV CONTRAST - 03/31/22 20:32 EST Findings: No intra-axial mass, midline shift, hydrocephalus, or acute hemorrhage. No significant atrophy-like change or white matter disease. The visualized paranasal sinuses and mastoid air cells are normal. The orbits are within normal limits. There is no acute fracture. IMPRESSION: 1. No acute intracranial findings. This document has been electronically signed by: Michael Stauffer MD on 12/27/2024 21:33:56
[2024-12-27 19:54] VITALS: BP 157/81; PULSE 107; RESP 20; TEMP 36.6; O2SAT 96; BMI 23.6
--- NOTE | 2024-12-27 19:54 | ED_ITS ---
HPI - General Adult General Chief complaint: Fall Stated complaint: dizzy, head & face injury (Fall) Time Seen by Provider: 12/27/24 22:33 Source: patient Mode of arrival: ambulatory Limitations: no limitations History of Present Illness ED Provider: Clemente CAMPBELL HPI narrative: The patient is a 69-year-old female with a history of GERD, anxiety, and irritable bowel syndrome, presenting to the ED for evaluation of fall. The patient reports 1 week ago she started taking imipramine as prescribed by her GI physician. Patient reports she has been experiencing some dizziness since initiating the new medication. The patient reports today she was feeling slightly dizzy, denies associated focal neurological deficit, near-syncope, syncope, chest pain, shortness of breath, pleurisy, abdominal pain, nausea, vomiting, diarrhea or other acute somatic complaint. The patient reports she got home from dinner and was carrying her dog outside, the patient bent down to put down her dog onto the deck while standing on the door way stoop, 1 step up from the deck landing, while bending over to put down the dog she reports feeling a loss of balance and fell forward striking her right head on a nearby canopy stanchion, and striking her face onto the decking while wearing glasses. Patient arrives to the ED reporting headache and hematoma of the right parietal area, as well as abrasion versus laceration to the bridge of the nose. Patient denies any chest pain, shortness of breath, headache, focal neurological deficit, or other prodrome prior to or following the fall, denies loss of consciousness or anticoagulation. Patient's witnessed the fall and confirms no loss of consciousness, brought the patient to the ED for evaluation. Related Data Home Medications ?Medication ?Instructions ?Recorded ?Confirmed calcium carbonate (Calcium 500) 1,000 mg PO DAILY 08/2007/18/24 riboflavin (vitamin B2) 400 mg 400 mg PO DAILY 07/18/24 tablet valacyclovir 500 mg tablet 500 mg PO DAILY 09/02/20 (Valtrex) super digestive enzymes 1 cap PO DAILY 03/02/2306/23 Previous Rx's ?Medication ?Instructions ?Recorded hydrocortisone 2.5 % topical cream 1 appl SD BID-QID P RN itching #30 07/10/20 with perineal applicator grams budesonide 32 mcg/actuation nasal 1 spray intranasal B ID #8.43 mL 08/17/24 spray polyethylene glycol 3350 17 17 g PO BID 30 days #1,020 grams 10/29/24 gram/dose oral powder (Miralax) simethicone 125 mg capsule (Gas-X 125 mg PO BID-QID #9 0 caps 10/29/24 Extra Strength) wheat dextrin 3 gram/4 gram oral 6 g PO BID #248 grams 10/29/24 powder (Benefiber Sugar Free (dextrin)) escitalopram oxalate 10 mg tablet 10 mg PO DAILY #90 t abs 10/31/24 alendronate 70 mg tablet 70 mg PO QWEEK #20 tabs 10/21 dicyclomine 20 mg tablet 20 mg PO QID 30 days #120 ta bs 12/19/24 imipramine HCl 10 mg tablet 20 mg (2 x 10 mg) PO BEDTI ME 30 12/19/24 days #60 tabs pantoprazole 20 mg tablet,delayed 20 mg PO DAILY #30 t abs 12/19/24 release Allergies Allergy/AdvReac Type Severity Reaction Status Date / Time acetaminophen (Percocet) Allergy Unknown pruritus Verified 12/27/24 19:58 Iodinated Contrast Media Allergy Unknown DIZZY Verified 12/27/24 19:58 (CONTRAST, IV) SPELLS oxycodone (From PERCOCET) Allergy Unknown ITCH Verified 12/27/24 19:58 Review of Systems 2 Review of Systems: Yes all other systems are reviewed and are negative PMFSH Past Medical History Medical History Physical exam Constipation Sinusitis Acute diarrhea Surgical History Hx of colonoscopy Family History Family History Mother No problems noted. Father No problems noted. Social History Social History Household Members: Spouse Housing: House Alcohol intake: current Alcohol intake frequency: holidays/special occasions only Patient Tobacco Use Status: Former Tobacco user Tobacco use type: Cigarette Smoked in Last 30 Days: No e-Cigarette/Vaping Use: Never Used Second Hand Smoke Exposure: Yes Use of substances other than those prescribed or required for medical reasons: No Advance Directives: No Advance Directives Information Provided: No service: No Current occupational status: employed Cognitive needs: No Hearing needs: No Vision needs: Yes (Glasses) Physical Exam ED Vital Signs: Vital Signs - 24 hr 12/27/24 19:54 12/27/24 20:26 12/27/24 20:26 Temperature 97.8 F Pulse Rate 107 H 97 99 Respiratory Rate 20 18 16 Blood Pressure 157/81 H 155/82 H 149/87 H Pulse Oximetry 96 98 97 Oxygen Delivery Method Room Air Room Air 12/27/24 22:14 Temperature 97.6 F Pulse Rate 93 Respiratory Rate 18 Blood Pressure 139/72 Pulse Oximetry 97 Oxygen Delivery Method Room Air BMI result Body Mass Index 23.6 CONSTITUTIONAL: The patient appears non-toxic, well nourished and in no acute distress. Vital signs as documented. HEAD: There is a moderate size hematoma noted to the right parietal region, no open injury, head is otherwise atraumatic, normocephalic. EYES: EOMs grossly intact, pupils equal, conjunctiva clear, no exudate. ENT: Nares patent, no discharge. Airway patent, no audible stridor, visible mucosa is pink and moist without noted lesions. There is a 1 cm laceration noted to the bridge of the nose, no septal hematoma, no crepitus. NECK: Trachea is midline, no obvious masses or gross abnormalities. CHEST: Symmetric movement, normal appearance. LUNGS: LS present and CTAB, no w/r/r. Non-labored work of breathing. CARDIAC: Regular Rhythm, S1/S2 appreciated, no murmurs, rubs or gallops. ABDOMEN: Abdomen soft and non-tender x4 quadrants, no palpable masses or organomegaly. : Deferred. EXTREMITIES: Normal tone, moves all extremities spontaneously without reported pain. There is a mild abrasion noted to the right olecranon process, no laceration or skin tear. Distal CSM intact, full nonpainful range of motion. No other obvious acute injury or deformity noted. NEURO: Alert and oriented x3, CN II-XII appear grossly intact. Cerebellar Functioning grossly intact. No obvious sensory or motor deficits. Speech clear and appropriate. PSYCH: normal affect, appropriate eye contact, fluid speech, with appropriate response to questioning. No reported suicidality or homicidality. SKIN: Warm, dry, color appropriate, normal turgor. No rashes noted. Course Course Course Narrative: RME performed by Day Coe PA-C. Patient is a 69 year old assigned female at presenting to the emergency department with nose pain after a fall. Patient states that she was dizzy before the fall and throughout the day, then she tripped and fell and landed on her face / head. Detailed physical exam and review of systems are deferred to the recreational therapist. Labs and imaging ordered. Patient placed back in the waiting room pending room availability and results. Medications Administered Discontinued Medications Generic Name Dose Route Start Last Admin Trade Name Freq PRN Reason Stop Dose Admin Acetaminophen 975 mg 12/27/24 22:52 12/27/24 23:00 Acetaminophen 325 Mg Tablet PO 12/27/24 22:53 975 mg ONCE ONE Administration Ibuprofen 600 mg 12/27/24 22:52 12/27/24 23:00 Ibuprofen 600 Mg Tablet PO 12/27/24 22:53 600 mg ONCE ONE Administration Lidocaine HCl 5 ml 12/27/24 22:52 12/27/24 23:00 Lidocaine Hcl 1 % Mpf 5 Ml Vial INFILTRATI 12/27/24 22:53 5 ml ONCE ONE Administration Procedures Laceration Laceration 1: Site: face (nose) Size (cm): 1 Description: irregular (L - Shaped w/ flap) and clean Depth: simple, single layer Local Anesthetic: lidocaine 1% Amount of anesthesia used (mL): 1 Pre-repair: wound explored Skin layer closed with: nylon Size (cm): 5-0 Number of sutures: 3 Technique: simple, interrupted Medical Decision Making Medical Decision Making MDM Narrative: 11:00 PM 12/27/2024 (Bradly CAMPBELL): The patient is a 69-year-old female presenting to the ED for evaluation of right scalp hematoma and laceration to the bridge of the nose following a mechanical fall that occurred while patient was leaning over to place her dog on the deck floor. The patient denies prodrome but does report 1 week of intermittent dizziness since beginning a medication for her IBS. The patient in the ED is well-appearing, laboratory evaluation is reassuring, no leukocytosis, anemia, SELINA, or electrolyte abnormality. The patient was evaluated with CT head, neck, and face, which show no intracranial hemorrhage, calvarial fracture, cervical fracture, or facial fracture. The patient's exam shows no evidence of septal hematoma. We will provide ibuprofen and Tylenol for pain, and place likely a single suture in the laceration to the bridge of the nose. Patient will be appropriate for discharge with supportive care. Patient advises she intends to take half dose (1 tab) of her new GI medication until follow up and further instruction following consultation with her GI physician, we will call her GI physician Monday.. Admission/Observation Consideration of admission/observation: Escalation of care including admission/observation considered Lab Data MDM Lab Attestation statement: I reviewed the patient's lab results. 12/27/24 20:06 12/27/24 20:06 Labs: Lab Results 12/27/24 Range/Units 20:06 WBC 10.2 (4.8-10.8) X10*3/uL RBC 4.06 L (4.20-5.50) X10*6/uL Hgb 13.7 (12.0-16.0) g/dl Hct 39.9 (37.0-47.0) % MCV 98.3 H (80.0-98.0) fL MCH 33.7 H (27.0-33.0) pg MCHC 34.3 (31.0-35.0) g/dl RDW 13.2 (11.0-16.0) % Plt Count 299 (160-400) X10*3/uL MPV 10.0 (9.4-12.3) fL Immature Gran % (Auto) 0.3 (0.0-0.4) % Neut % (Auto) 60.2 (45-73) % Lymph % (Auto) 29.1 (20-40) % Cecil % (Auto) 8.0 (2-11) % Eos % (Auto) 1.8 (0-4) % Baso % (Auto) 0.6 (0-2) % Lymph # (Auto) 3.0 (1.2-4.9) X10*3/uL Cecil # (Auto) 0.8 (0.1-1.2) X10*3/uL Eos # (Auto) 0.2 (0.0-0.4) X10*3/uL Baso # (Auto) 0.1 (0.0-0.2) X10*3/uL Abs Immat Gran (auto) 0.03 (0.00-0.03) X10*3/uL Absolute Neuts (auto) 6.1 (2.0-8.3) x10*3/uL Absolute Nucleated RBC 0.000 (0.0-0.012) X10*3/uL Nucleated RBC % (auto) 0.0 (0.0-0.2) /100WBC Sodium 141 (135-145) mmol/L Potassium 4.2 (3.3-5.1) mmol/L Chloride 105 (96-108) mmol/L Carbon Dioxide 28 (22-29) mmol/L Anion Gap 12 (12-20) BUN 14 (9-16) mg/dL Creatinine 0.80 (0.5-1.4) mg/dL Estim Creat Clear Calc 55.7 Estimated GFR > 60 Random Glucose 148 H (60-115) mg/dL Calcium 9.3 (8.4-10.2) mg/dL Magnesium 2.1 (1.6-2.6) mg/dL Total Bilirubin 0.2 (0.0-1.0) mg/dL AST 24 (5-31) U/L ALT 30 (0-31) U/L Alkaline Phosphatase 67 (39-117) U/L Troponin I High Sens < 2.7 (<3.5-17.0) ng/L B-Natriuretic Peptide < 10 (<100) pg/mL Total Protein 7.5 (6.5-8.0) g/dL Albumin 4.5 (3.5-5.0) g/dL Radiology Impression Discussion of test interpretation with radiology: I have reviewed the radiologist's reading. Radiologist Impression: CLINICAL HISTORY: head strike, pain, injury CT head without contrast Comparison: MR/SR - MR BRAIN WITHOUT THEN WITH IV CONTRAST - 07/28/22 12:[address]/SR - CT HEAD WITHOUT IV CONTRAST - 03/31/22 20:32 EST Findings: No intra-axial mass, midline shift, hydrocephalus, or acute hemorrhage. No significant atrophy-like change or white matter disease. The visualized paranasal sinuses and mastoid air cells are normal. The orbits are within normal limits. There is no acute fracture. IMPRESSION: 1. No acute intracranial findings. This document has been electronically signed by: Michael Stauffer MD on 12/27/2024 21:33:56 CLINICAL HISTORY: head strike, pain, injury CT maxillofacial without contrast Comparison: None provided Findings: No acute fractures. Temporomandibular joints are intact. Paranasal sinuses and mastoid air cells clear. Orbital contents within normal limits. Visualized intracranial contents are within normal limits. No foreign bodies. IMPRESSION: Unremarkable maxillofacial CT. This document has been electronically signed by: Michael Stauffer MD on 12/27/2024 21:25:15 CLINICAL HISTORY: head strike, pain, injury CT cervical spine without contrast Comparison: None provided Findings: Normal vertebral body alignment. There is degenerative change. No acute fractures or dislocations. No acute findings on limited view of the intracranial contents. Soft tissues of the neck are normal. No consolidation or effusion at the lung apices. IMPRESSION: No acute findings. This document has been electronically signed by: Michael Stauffer MD on 12/27/2024 21:21:15 Prescription Management I considered prescription management with: Pain Medication Discharge Plan Discharge Clinical Impression: Hematoma of right parietal scalp Qualifiers: Encounter type: initial encounter Qualified Code(s): S00.03XA - Contusion of scalp, initial encounter Laceration of nose Qualifiers: Encounter type: initial encounter Qualified Code(s): S01.21XA - Laceration without foreign body of nose, initial encounter Fall Qualifiers: Encounter type: initial encounter Qualified Code(s): W19.XXXA - Unspecified fall, initial encounter Patient Disposition: Home, Self-Care Instructions: Laceration (ED), Scalp Contusion in Adults (ED), Facial Laceration (ED) Additional Instructions: Thank you for choosing [facility]'s Emergency Department for your care today. Your laboratory evaluation and CT imaging today showed no evidence of any acute fracture, intracranial bleeding, or other dangerous cause for, or injury as a result of your fall. You may take alternating (staggered) doses of ibuprofen 600mg and Tylenol 1000mg every 4 hours as needed for any additional pain. Please rest the injured area, and apply ice for 20 minutes every hour. Your laceration of your nose today was repaired with nonabsorbable sutures which will need to be removed in 5-7 days. Please return to the emergency department or follow-up with your primary care provider for removal of sutures. Please apply bacitracin to the laceration twice daily for the first 2-3 days. Then please keep the area clean and dry, but uncovered and exposed to the air to allow the laceration to heal. While it is perfectly acceptable to allow water to run over the sutures while showering, please do not swim, or submerge the laceration in standing water until the sutures are removed. One week after your sutures are removed it is recommended you apply sunscreen to the laceration daily for 6 months to reduce the discoloration most often associated with visibility of lacerations. Please discuss your new onset dizziness which began with the start of your new medication with your GI physician for additional instruction regarding the continuation of this medication. If you do not have a primary care physician, please call the [facility] at [phone] to establish a new primary care physician. While waiting to establish your new primary care physician, you can call our [facility] at [phone] for non-emergency needs. Please return to the emergency department if you develop any uncontrollable bleeding, re-opening of your wound, redness advancing >1-2 cm away from your wound, or white milky discharge from your wound. Please also return if you experience any other new or worsening symptoms or concerns. Prescriptions: No Action budesonide 32 mcg/actuation spray,non-aerosol 1 spray intranasal BID Qty: 8.43 8RF escitalopram oxalate 10 mg tablet 10 mg PO DAILY Qty: 90 1RF alendronate 70 mg tablet 70 mg PO QWEEK Qty: 20 4RF hydrocortisone 2.5 % cream with perineal applicator 1 appl SD BID-QID PRN (Reason: itching) Qty: 30 8RF valacyclovir [Valtrex] 500 mg tablet 500 mg PO DAILY riboflavin (vitamin B2) 400 mg tablet 400 mg PO DAILY calcium carbonate [Calcium 500] 500 mg calcium (1,250 mg) tablet 1,000 mg PO DAILY super digestive enzymes 1 cap PO DAILY imipramine HCl 10 mg tablet 20 mg PO BEDTIME 30 Days Qty: 60 6RF pantoprazole 20 mg tablet,delayed release (DR/EC) 20 mg PO DAILY Qty: 30 6RF dicyclomine 20 mg tablet 20 mg PO QID 30 Days Qty: 120 6RF simethicone [Gas-X Extra Strength] 125 mg capsule 125 mg PO BID-QID Qty: 90 6RF polyethylene glycol 3350 [Miralax] 17 gram/dose powder 17 g PO BID 30 Days Qty: 1020 6RF Benefiber Sugar Free (dextrin) 3 gram/4 gram powder 6 g PO BID Qty: 248 6RF Rx Instructions: mix into at least 4 oz water or juice before administering Referrals: Physician,Unknown J [Primary Care Provider, Medical] Print Language: Wolof
[2024-12-27 20:12] LABS: MANUAL DIFF FLAG NO
[2024-12-27 20:14] LABS: Hematocrit 39.9 % (37.0-47.0); Hemoglobin 13.7 g/dl (12.0-16.0); Imm Gran Abs Auto 0.03 X10*3/uL (0.00-0.03); Imm Gran Pct Auto 0.3 % (0.0-0.4); Lymphocytes Absolute Auto 3.0 X10*3/uL (1.2-4.9); Mean Corpuscular HGB Conc 34.3 g/dl (31.0-35.0); Mean Corpuscular Hemoglobin 33.7 pg (27.0-33.0); Mean Corpuscular Volume 98.3 fL (80.0-98.0); NRBC Abs Auto 0.000 X10*3/uL (0.0-0.012); NRBC Pct Auto 0.0 /100WBC (0.0-0.2); Platelet Count 299 X10*3/uL (160-400); Red Blood Count 4.06 X10*6/uL (4.20-5.50); White Blood Count 10.2 X10*3/uL (4.8-10.8)
[2024-12-27 20:26] VITALS: BP 149/87; BP 155/82; PULSE 97; PULSE 99; RESP 16; RESP 18; O2SAT 97; O2SAT 98
[2024-12-27 20:27] LABS: Alanine Aminotransferase 30 U/L (0-31); Albumin Level 4.5 g/dL (3.5-5.0); Alkaline Phosphatase 67 U/L (39-117); Anion Gap 12 (12-20); Aspartate Amino Transferase 24 U/L (5-31); Blood Urea Nitrogen 14 mg/dL (9-16); Calcium 9.3 mg/dL (8.4-10.2); Carbon Dioxide 28 mmol/L (22-29); Chloride 105 mmol/L (96-108); Creatinine Clr Calc Pharmacy 55.7; Estimated Glomerular Filt Rate > 60; Magnesium 2.1 mg/dL (1.6-2.6); Potassium 4.2 mmol/L (3.3-5.1); Sodium 141 mmol/L (135-145); Total Protein 7.5 g/dL (6.5-8.0)
[2024-12-27 20:33] LABS: B Type Natriuretic Peptide < 10 pg/mL (<100)
[2024-12-27 20:37] LABS: Troponin-I High Sensitivity < 2.7 ng/L (<3.5-17.0)
--- OUTSIDE RECORDS SUMMARY | 2024-12-27 21:04 | XMS_ITS | Patient Health Record ---
Author [facility] [place] Address [address] [place] [address] Care Team Providers Care Packing Supervisor Name Role Phone Rosalio RAMIREZ, Vivek Primary Care Provider Unavaila Bailey Rajput Unavailable [phone] Allergies Allergen (clinical drug ingredient) Drug/Non Drug [...] X ray : Foot, left 3V 04/01/2013 18867-Bbpf Destruction, -08/01/2011 17373-Okqj Destruction, 06-0408/22/2011 42911-Kxbh Destruction, 06-0409/26/2011 44992-Ddji Destruction, 06-0411/03/2011 24106-Hquz Destruction, 06-0404/01/2013 60590- Debride <25 sq cm 05/24/2013 80968, J0702- Neuroma/Injection 08/24/19 14 75286- Biopsy of skin lesion 05/03/2013 Insurance Providers Payer Name Payer Address Payer Phone Subscriber Number Group Number Insured Name Patient Relationship to Insured Coverage Start Date Coverage End Date [employer]vantage [address] [place] [address] Lindsey Castillo Self - patient is the insured Medical (General) History Medical History History ICD Code thyroid disorder mumps chicken pox Surgical History Surgery Date(Month/Year) section
--- OUTSIDE RECORDS SUMMARY | 2024-12-27 21:04 | XMS_ITS | Patient Health Record ---
Author Organization [facility] Address [address] [place] [address] Care Team Providers Care Compensation Vice President Name Role Phone Shiraz Sanchez Unavailable [phone] Reason For Referral No Information Plan Of Treatment No Information
--- NOTE | 2024-12-27 21:23 | PC.NURSE ---
Addendum entered by Denisha Sheth RN 12/27/24 21:24: Patient is a 69 yo female who presents from home, c/o dizziness since starting imipramine and today tripped and fell falling on her face. Small lace noted to the bridge of her nose. Alert and oriented. Lungs clear bilat. Respirations even and non-labored. Abdomen soft, non-tender with positive bowel sounds. Positive pedal pulses with trace LE edema. Original Note: PMH: (1) Irritable bowel syndrome with both constipation and diarrhea: Code(s): K58.2 - Mixed irritable bowel syndrome Category: Medical (2) Abdominal cramping: Code(s): R10.9 - Unspecified abdominal pain Category: Medical (3) GERD (gastroesophageal reflux disease): Code(s): K21.9 - Gastro-esophageal reflux disease without esophagitis Category: Medical (4) Gluten enteropathy: Code(s): K90.41 - Non-celiac gluten sensitivity Category: Medical
[2024-12-27 22:14] VITALS: BP 139/72; PULSE 93; RESP 18; TEMP 36.4; O2SAT 97
[2024-12-27] MEDS: Lidocaine HCl 1 % MPF 5 ML VIAL INFILTRATI (23:00)
[2024-12-27 23:54] VITALS: BP 137/73; PULSE 90; RESP 18; TEMP 36.8; O2SAT 98
[2024-12-27 23:55] VITALS: BP 137/73; PULSE 90; RESP 18; TEMP 36.8; O2SAT 98
== END 2024-12-28 00:06 | disposition home or self-care (01) ==
PROVIDERS: Physician Assistant Medical; Emergency Provider Emergency Medicine
DX: S01.21XA Laceration without foreign body of nose, initial encounter (principal); W19.XXXA Unspecified fall, initial encounter; Y93.9 Activity, unspecified; Y92.9 Unspecified place or not applicable; Y99.9 Unspecified external cause status; R42 Dizziness and giddiness; R51.9 Headache, unspecified
CPT/HCPCS: 12001; 36415; 70450; 70486; 72125; 80053; 83735; 83880; 84484; 85025; 99284; J2003

== ENCOUNTER → 2024-12-27 19:55 | Outpatient (BNV) | payer MEDICARE, SELFPAY | PROVIDERS: Visit Provider Nuclear Medicine | DX: M54.2 Cervicalgia (principal); R51.9 Headache, unspecified | CPT/HCPCS: 70450; 70486; 72125 ==

== ENCOUNTER 2024-12-30 08:01 | Outpatient (REF) | payer MEDICARE, SELFPAY ==
--- OUTSIDE RECORDS SUMMARY | 2024-03-22 05:45 | XMS_ITS ---
Author Organization [facility] Address [address] [address] Care Team Providers Care Data Visualization Developer Name Role Phone Vivek Santamaria Primary Care Provider TANNER [place] Unavailable [phone] REASON FOR VISIT 4wk Encounters Encounter Location Date Provider Diagnosis [facility] [address] [address] 03/22/2024 TANNER GUSMAN Plan Of Treatment No Information Progress Notes * Nancie CASTILLONanciOB:1955 ( 69 yo F)Acc No.[id number]:03/22/2024 Progress Note Patient: Lindsey YIP Provider: Emiliano Morrison DPMali :1955 A ge:68 Y S ex:Female Date:03/22/2024 Phone: Address:[address] [place] [address] [place] [id number] Pcp:Vivek Santamaria Subjective: * Chief Complaints: * 1 . 4wk. * Medical History: Objective: * Vitals: Assessment: Plan: * Treatment: * Billing Information: * Visit Code: * Procedure Codes: * Electronic signature of TAM GUSMAN D.P.M. on 12/30/2024 at 08:07 AM EDT Sign off status: Pending * Provider: Emiliano Morrison DPM Date: 05/22/2023 Generated for Kesha harper/Isa/Chrissieitting on: 0 12/30/2024 08:07 AM EDT
--- OUTSIDE RECORDS SUMMARY | 2024-12-30 08:07 | XMS_ITS | Patient Health Record ---
Author Organization [facility] Address [address] [place] [address] Care Team Providers Care Front Office Administrator Name Role Phone Shiraz Sanchez Unavailable [phone] Reason For Referral No Information Plan Of Treatment No Information
--- OUTSIDE RECORDS SUMMARY | 2024-12-30 08:08 | XMS_ITS | Patient Health Record ---
Author [facility] [place] Address [address] [place] [address] Care Team Providers Care Quality Assurance Engineer Name Role Phone Rosalio RAMIREZ, Vivek Primary Care Provider Unavaila ble Bailey Márquez Unavailable [phone] Allergies Allergen (clinical drug ingredient) Drug/Non Drug [...] X ray : Foot, left 3V 04/01/2013 28247-Caix Destruction, -08/01/2011 48714-Zmge Destruction, 06-0408/22/2011 26434-Opwg Destruction, 06-0409/26/2011 79076-Sank Destruction, 06-0411/03/2011 38371-Ajdt Destruction, 06-0404/01/2013 80741- Debride <25 sq cm 05/24/2013 24655, J0702- Neuroma/Injection 08/24/19 14 68538- Biopsy of skin lesion 05/03/2013 Insurance Providers Payer Name Payer Address Payer Phone Subscriber Number Group Number Insured Name Patient Relationship to Insured Coverage Start Date Coverage End Date [employer] [place] [employer]vantage [address] [place] [address] [phone] Lindsey Castillo Self - patient is the insured Medical (General) History Medical History History ICD Code thyroid disorder mumps chicken pox Surgical History Surgery Date(Month/Year) section
== END 2024-12-30 08:02 | disposition home or self-care (01) ==
LOC: HO.MAMMO 08:01
PROVIDERS: PCP Physician Assistant; Referring Provider Physician Assistant; Visit Provider Internal Medicine
DX: Z12.31 Encounter for screening mammogram for malignant neoplasm of breast (principal)
CPT/HCPCS: 77063; 77067

== ENCOUNTER → 2024-12-30 08:15 | Outpatient (BNV) | payer MEDICARE, SELFPAY | PROVIDERS: PCP Physician Assistant; Referring Provider Physician Assistant; Visit Provider Internal Medicine | DX: Z12.31 Encounter for screening mammogram for malignant neoplasm of breast (principal) | CPT/HCPCS: 77063; 77067 ==

== ENCOUNTER 2025-01-03 07:17 | Outpatient (AMB) | payer MEDICARE, SELFPAY ==
--- OUTSIDE RECORDS SUMMARY | 2025-01-03 07:18 | XMS_ITS | Patient Health Record ---
Author Organization [facility] [place] Address [address] [place] [address] Care Team Providers Care Liability Claims Manager Name Role Phone Rosalio RAMIREZ, Vivek Primary Care Provider Unavaila ble Bailey Márquez Unavailable [phone] Allergies Allergen (clinical drug ingredient) Drug/Non Drug [...] X ray : Foot, left 3V 04/01/2013 22390-Cajx Destruction, -08/01/2011 13781-Oemx Destruction, 06-0408/22/2011 63581-Dbie Destruction, 06-0409/26/2011 62699-Zocg Destruction, 06-0411/03/2011 71334-Akrg Destruction, 06-0404/01/2013 68138- Debride <25 sq cm 05/24/2013 01523, J0702- Neuroma/Injection 08/24/19 14 27820- Biopsy of skin lesion 05/03/2013 Insurance Providers Payer Name Payer Address Payer Phone Subscriber Number Group Number Insured Name Patient Relationship to Insured Coverage Start Date Coverage End Date [employer] [place] [employer]vantage [address] [place] [address] Lindsey Castillo Self - patient is the insured Medical (General) History Medical History History ICD Code thyroid disorder mumps chicken pox Surgical History Surgery Date(Month/Year) section
--- OUTSIDE RECORDS SUMMARY | 2025-01-03 07:18 | XMS_ITS | Patient Health Record ---
Author Organization [facility] Address [address] [place] [id number] Care Team Providers Care Carbide Powder Processor Name Role Phone Shiraz Sanchez Unavailable [phone] Reason For Referral No Information Plan Of Treatment No Information
[2025-01-03 07:40] VITALS: BP 118/70; PULSE 98; TEMP 36.8; O2SAT 96; BMI 23.4
--- NOTE | 2025-01-03 07:40 | AM.OFFWIN_ITS ---
Intake Vital Signs 01/03/25 07:40 Height 5 ft 3 in Weight 132 lb 6 oz BMI 23.4 BP 118/70 Blood Pressure Location Lt brachial Position Sitting Pulse 98 Pulse Source Pulse Oximeter Temp 98.3 F Temp Source Oral Pulse Oximetry (%) 96 Oxygen Delivery Method Room Air Intake Visit Reasons: EP Stitch removal Patient Tobacco Use Status: Former Tobacco user Central Communications Specialist Required: No Is last menstrual period known: No Post menopausal: Yes Patient : No Allergies acetaminophen (Percocet) Allergy (Unknown, Verified 01/03/25 07:45) pruritus Iodinated Contrast Media (CONTRAST, IV) Allergy (Unknown, Verified 01/03/25 07:45) DIZZY SPELLS oxycodone (From PERCOCET) Allergy (Unknown, Verified 01/03/25 07:45) ITCH Do you need a note to return to daycare/school/sports/work: No HPI HPI Comments History of Present Illness Details History of Present Illness - The patient is a 69-year-old female pr esenting with a nasal laceration following a fall. - The fall occurred while the patient wa s placing her dog on the deck, resulting in dizziness and a fall onto her glasses, causing a laceration on the nose. - The laceration was [facility] at [place], where 3 sutures were placed. - The patient reports no pain, fever, or oozing from the wound. - The sutures were scheduled for removal five to seven days post-placement, with the current visit aligning with this timeline. Physical Exam General: Cooperative, healthy appearing, comfortable, no acute distress and well developed Orientation: Patient oriented x3 Limitations: No limitations Head: Normal to inspection Ears: Hearing grossly normal bilaterally Nose: [address] with dried blood on the wound Face and sinus: Normal facial exam Eyes: Appearance normal, both eyes and all related structures Neck: Normal visual inspection and Yes full ROM Respiratory: Normal respiratory effort and able to speak in complete sentences. Skin: No rashes or lesions noted, [address] with dried blood on the wound Neuro: Patient oriented x3 Extremities: Normal to inspection PFSH Medical History Physical exam Constipation Sinusitis Acute diarrhea Surgical History Hx of colonoscopy Family History Mother No problems noted. Father No problems noted. Social History Household Members: Spouse Housing: House Alcohol intake: current Alcohol intake frequency: holidays/special occasions only Patient Tobacco Use Status: Former Tobacco user Tobacco use type: Cigarette e-Cigarette/Vaping Use: Never Used Second Hand Smoke Exposure: Yes Patient : No service: No Current occupational status: employed Cognitive needs: No Hearing needs: No Vision needs: Yes (Glasses) Review of Systems Const All systems reviewed & are unremarkable except as noted in HPI and below Physical Exam Vital Signs: Last Vital Signs Temp 98.3 F 01/03/25 07:40 Pulse 98 01/03/25 07:40 BP 118/70 01/03/25 07:40 Pulse Ox 96 01/03/25 07:40 Oxygen Delivery Method Room Air 01/03/25 07:40 BMI result Body Mass Index 23.4 Assessment & Plan Assessment & Plan (1) Visit for suture removal: Code(s): Z48.02 - Encounter for removal of sutures Plan: Plan - Removed 3 sutures from nasal laceration, ensuring all sutures are accounted for and no retained sutures remain. Wound is clean, dry and has no warmth or drainage, appears to be healing well. - Applied bacitracin and a bandaid. - Recommend covering the wound with a Band-Aid when in public to prevent contamination. Patient was informed and verbally consented to the use of an ambient scribe for clinic note documentation during this visit. Coding Level of Care Code Est Pt Level 2 (27730) Diagnoses Visit for suture removal Z48.02
== END 2025-01-03 08:07 | disposition home or self-care (01) ==
PROVIDERS: PCP Physician Assistant; Visit Provider Physician Assistant
DX: Z48.02 Encounter for removal of sutures (principal)

== ENCOUNTER → 2025-01-03 07:17 | Outpatient (BNVA) | payer MEDICARE, SELFPAY | PROVIDERS: PCP Physician Assistant; Visit Provider Physician Assistant | DX: S01.21XD Laceration without foreign body of nose, subsequent encounter (principal); W19.XXXD Unspecified fall, subsequent encounter; Z48.02 Encounter for removal of sutures | CPT/HCPCS: 99212 ==

== ENCOUNTER 2025-01-06 10:05 | Outpatient (AMB) | payer MEDICARE, SELFPAY ==
--- OUTSIDE RECORDS SUMMARY | 2024-03-22 05:45 | XMS_ITS ---
Author Organization [facility] Address [address] [address] Care Team Providers Care International Guest Coordinator Name Role Phone Vivek Santamaria Primary Care Provider TANNER [place] Unavailable [phone] REASON FOR VISIT 4wk Encounters Encounter Location Date Provider Diagnosis [facility] [address] [address] 03/22/2024 TANNER GUSMAN Plan Of Treatment No Information Progress Notes * Nancie CASTILLONanciOB:1955 ( 69 yo F)Acc No.[id number]:03/22/2024 Progress Note Patient: Lindsey YIP Provider: Emiliano Morrison DPMali :1955 A ge:68 Y S ex:Female Date:03/22/2024 Phone: Address:[address] [place] [address] [place] [id number] Pcp:Vivek Santamaria Subjective: * Chief Complaints: * 1 . 4wk. * Medical History: Objective: * Vitals: Assessment: Plan: * Treatment: * Billing Information: * Visit Code: * Procedure Codes: * Electronic signature of TAM GUSMAN D.P.M. on 01/06/2025 at 10:58 AM EDT Sign off status: Pending * Provider: Emiliano Morrison DPM Date: 05/22/2023 Generated for Kesha harper/Isa/Saulsmitting on: 0 01/06/2025 10:58 AM EDT
--- NOTE | 2025-01-06 10:15 | A.OFFPC_ITS ---
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 Required: No Quality Assurance Tester: Not Required per policy Accompanied by: Self / Same As Patient Allergies acetaminophen (Percocet) Allergy (Unknown, Verified 01/06/25 10:36) pruritus Iodinated Contrast Media (CONTRAST, IV) Allergy (Unknown, Verified 01/06/25 10:36) DIZZY SPELLS oxycodone (From PERCOCET) Allergy (Unknown, Verified 01/06/25 10:36) ITCH Medication List - Last Reconciled 01/06/25 by Ben Andre PA-C alendronate 70 mg PO QWEEK budesonide 32 mcg/actuation 1 spray intranasal BID calcium carbonate (Calcium 500) 1,000 mg PO DAILY dicyclomine 20 mg PO QID 30 days escitalopram oxalate 10 mg PO DAILY hydrocortisone 2.5% 1 appl IA BID-QID PRN imipramine HCl 10 mg PO BEDTIME pantoprazole 20 mg PO DAILY polyethylene glycol 3350 (Miralax) 17 grams PO BID 30 days riboflavin (vitamin B2) 400 mg PO DAILY simethicone (Gas-X Extra Strength) 125 mg PO BID-QID [super digestive enzymes 1 cap PO DAILY] valacyclovir (Valtrex) 500 mg PO DAILY wheat dextrin (Benefiber Sugar Free (dextrin)) 6 grams PO BID Tobacco use date assessed: 01/06/25 Fall risk assessment: 1 Fall in past year (12/25/24) Last assessed Fall Risk: 01/06/25 Dental Screening Dental Screen Date: 07/18/[address] Santamaria HPI Details Patient is a 69-year-old female here today for a transfer of care visit. Previous PCP was Dr. Santamaria. Patient has a past medical history significant for anxiety, GERD, irritable bowel syndrome and osteoporosis. IBS- The patient has a history of Irritable Bowel Syndrome (IBS) with gluten sensitivity, managed with various medications prescribed by her pediatric dental hygienist, Dr. Sonya Salgado. She experienced dizziness attributed to a new medication, imipramine, which led to a fall resulting in a head injury requiring stitches. The fall occurred while she was at home managing her elderly dogs, leading to a significant laceration on her head. A CT scan of the head and face was performed , showing no intracranial bleeding or fractures. Hyperlipidemia: The patient has a history of hyperlipidemia, with previous fasting labs indicating elevated cholesterol levels. She is due for new fasting labs to monitor her cholesterol levels. 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 She has a history of chickenpox, which influences her decision regarding the shingles vaccine. [facility] Medical History Physical exam Constipation Sinusitis Acute diarrhea Surgical History Hx of colonoscopy Family History Mother No problems noted. Father No problems noted. Social History Household Members: Spouse Housing: House Alcohol intake: current Alcohol intake frequency: holidays/special occasions only Patient Tobacco Use Status: Former Tobacco user Tobacco use type: Cigarette e-Cigarette/Vaping Use: Never Used Second Hand Smoke Exposure: Yes service: No Current occupational status: employed Cognitive needs: No Hearing needs: No Vision needs: Yes (Glasses) Questionnaire PHQ-9 Over the last 2 weeks, how often have you been bothered by any of the following problems? 1. Little interest or pleasure in doing things: not at all 2. Feeling down, depressed, or hopeless: not at all 3. Trouble falling or staying asleep, or sleeping too much: not at all 4. Feeling tired or having little energy: not at all 5. Poor appetite or overeating: not at all 6. Feeling bad about yourself - or that you are a failure or have let yourself or your family down: not at all 7. Trouble concentrating on things, such as reading the newspaper or watching television: not at all 8. Moving or speaking so slowly that other people could have noticed. Or the opposite - being so fidgety or restless that you have been moving around a lot more than usual: not at all 9. Thoughts that you would be better off or of hurting yourself in some way: not at all Total score: 0 Depression Screening Interpretation: Negative Depression Screening Done: Yes 48246 - PHQ-9 Billing: Yes Source: Developed by Drs. Shiraz Roach, Regi Anaya, Jaime Lopez and colleagues, with an educational krystin from [employer]. Thrive Questionnaire Date Thrive assessed: 07/16/24 I am a: Patient What is your living situation today?: I have a steady place to live Within the past 12 months, did the food you bought not last and you didn't have the money to get more?: Never true Within the past 12 months, did you worry whether your food would run out before you got money to buy more?: Never true Do you have trouble paying for medicines?: No Do you have trouble getting transportation to medical appointments?: No Do you have trouble paying your heating and electricity bill?: No Do you have trouble taking care of your child, family member or friend?: No Do you have trouble with day-to-day activities such as bathing, preparing meals, shopping, managing finances, etc.?: No Are you currently unemployed and looking for a job?: No Are you interested in more education?: No Please select the resources that you would like help with: None Currently or been in a relationship where the following occur: No concerns reported THRIVE Score: 0 SAMEER-7 AMB Questionnaire SAMEER-7 Date SAMEER - 7 assessed: 07/18/24 Source: Developed by Drs. Shiraz Roach, Regi Anaya, Jaime Lopez and colleagues, with an educational krystin from [employer]. Review of Systems Const Denies headache(s) Eyes Denies loss of vision ENT Denies vertigo, Denies dizziness, Denies headache(s) and Denies sore throat Card Denies chest pain, Denies leg edema and Denies lightheadedness Resp Denies cough, Denies hemoptysis and Denies wheezing GI Denies abdominal pain, Denies melena, Denies constipation, Denies diarrhea and Denies vomiting Denies urinary frequency, Denies dysuria and Denies urinary urgency Musc Denies arthralgias, Denies joint swelling, Denies numbness and Denies tingling Neuro Denies Abnormal speech present, Denies behavioral changes, Denies vertigo, Denies dizziness, Denies headache(s), Denies loss of vision, Denies memory loss, Denies numbness and Denies tingling Psych Denies anxiety, Denies behavioral changes, Denies depression, Denies memory loss and Denies panic attacks Raghu/Lymph Denies easy bleeding and Denies easy bruising Aller/Immun Denies wheezing Physical exam (Primary Care) Vital Signs: Last Vital Signs Temp 97.1 F 01/06/25 10:17 Pulse 90 01/06/25 10:17 BP 120/70 01/06/25 10:17 Pulse Ox 95 01/06/25 10:17 Oxygen Delivery Method Room Air 01/06/25 10:17 BMI result Body Mass Index 23.4 Tobacco/Smoking Status: Tobacco use Status Tobacco use date assessed 01/06/25 01/06/25 10:25 Patient Tobacco Use Status Former Tobacco user 01/06/25 10:25 Tobacco use type Cigarette 01/06/25 10:25 e-Cigarette/Vaping Use Never Used 01/06/25 10:25 PHQ-9: PHQ-9 Score PHQ-9: Total score 0 01/06/25 11:03 Depression Screening Interpretation: Negative Thrive Assessment: Date of Thrive Assessment Date Thrive assessed 07/16/24 01/06/25 10:25 Currently or been in a relationship where the following occur: No concerns reported Const General: healthy appearing, no acute distress, alert and awake Nutritional Appearance: well nourished Orientation/consciousness: oriented to person, oriented to place and oriented to time [facility] Ears: TM's normal bilaterally General nose exam: Normal nasal mucous membranes and turbinates present Eyes Conjunctivae: conjunctivae normal Sclerae: sclerae normal Pupils: Equal, round and reactive pupils present Neck Neck: Yes no lymphadenopathy and Yes no JVD Thyroid: Thyroid normal Carotids: no bruits Resp Effort & Inspection: normal respiratory effort and not tachypneic Auscultation: no crackles, no rales, no rhonchi and no wheezes Cardio Rate: regular rate Rhythm: regular rhythm Heart sounds: no murmurs and normal S1 and S2 GI Palpation (GI): Soft to palpation, nontender, no hepatomegaly and no splenomegaly Auscultation: normal bowel sounds Skin General skin exam: no rashes or lesions noted and dry skin Neuro General: oriented to person, oriented to place and oriented to time Cranial nerves: Yes Equal, round and reactive pupils present Speech: No Abnormal speech present Gait exam (Neuro): Normal gait present Motor exam (neuro): no tremor noted Extrem Right upper extremity: full ROM Left upper extremity: full ROM Right lower extremity: full ROM; no edema Left lower extremity: full ROM; no edema Psych Mental Status: mental status grossly normal Speech and movement: Normal speech and movement present Affect: normal affect Attitude: cooperative Thought process: Normal thought process present Immunizations tetanus-diphtheria toxoids-Td 2 Lf unit-2 Lf unit/0.5 mL IM suspension Performing Provider: Ben Andre PA-C [facility] Administered by: Katie Thurston LPN on 01/06/25 11:04 Dose Route Admin Location Dispensed Lot Number Expiration Date NDC Tin Flipper 0.5 mL IM Left Deltoid 0.5 mL [id number] 09/18/26 [id number] [employer] Total Dispensed Waste 0.5 mL 0 % VIS Given Date VIS Provided VIS Publication Date 01/06/25 Single Vaccine 20 Eligibility Eligibility Date Funding Source Not [facility] Eligible 01/06/25 Private Coding Level of Care Code Est Pt Level 4 (16890) Diagnoses Irritable bowel syndrome with both constipation and diarrhea K58.2 Mixed hyperlipidemia E78.2 Hyperlipidemia type: mixed hyperlipidemia Sensorineural hearing loss (SNHL) of left ear with unrestricted hearing of right ear H90.42 Contralateral hearing status: unrestricted hearing on contralateral side Age related osteoporosis, unspecified pathological fracture presence M81.0 Osteoporosis type: age-related Presence of current pathological fracture: unspecified Additional Codes PHQ-9 - 04343 - PHQ-9 Billing: Yes ([id number]) Assessment & Plan Assessment & Plan (1) Irritable bowel syndrome with both constipation and diarrhea: Code(s): K58.2 - Mixed irritable bowel syndrome Category: Medical Plan: Patient continues to follow gastroenterology, continues on multiple medications for her IBS syndrome and also has celiac enteropathy . (2) HLD (hyperlipidemia): Code(s): E78.5 - Hyperlipidemia, unspecified Category: Medical Qualifiers: Hyperlipidemia type: mixed hyperlipidemia Qualified Code(s): E78.2 - Mixed hyperlipidemia Plan: Most recent lipid panel showing elevated total cholesterol and LDL. Patient will work on low-cholesterol diet. Will recheck fasting lipids (3) Sensorineural hearing loss (SNHL) of left ear: Code(s): H90.5 - Unspecified sensorineural hearing loss Category: Medical Qualifiers: Contralateral hearing status: unrestricted hearing on contralateral side Qualified Code(s): H90.42 - Sensorineural hearing loss, unilateral, left ear, with unrestricted hearing on the contralateral side Plan: Patient does report having decreased hearing in her left ear. Will seeing an EN T in [place] though hearing aids were not recommended for some unclear reason. He she will follow up with the ENT specialist (4) Osteoporosis: Code(s): M81.0 - Age-related osteoporosis without current pathological fracture Category: Medical Qualifiers: Osteoporosis type: age-related Presence of current pathological fracture: unspecified Qualified Code(s): M81.0 - Age-related osteoporosis without current pathological fracture Plan: Patient continues on weekly dose of alendronate 70 mg. Advised on continuing calcium supplementation Will consider repeat bone density when needed. Orders: Orders Comprehensive [place]. Panel Fast Today Ben Andre PA-C E78.2 - Mixed hyperlipidemia Lipid Panel Today Ben Andre PA-C E78.2 - Mixed hyperlipidemia Td State Immunization Today Ben Andre PA-C Z23 - Encounter for immunization Complete Blood Count no Diff Today Ben Andre PA-C E78.2 - Mixed hyperlipi demia Medications: Changed From imipramine HCl 20 mg (2 x 10 mg) PO BEDTIME 30 days 60 tabs 6RF R10.9 - Unspecified abdominal pain To imipramine HCl 10 mg PO BEDTIME R10.9 - Unspecified abdominal pain TONY Keene
[2025-01-06 10:17] VITALS: BP 120/70; PULSE 90; TEMP 36.2; O2SAT 95; BMI 23.4
--- OUTSIDE RECORDS SUMMARY | 2025-01-06 10:59 | XMS_ITS | Patient Health Record ---
[facility]ia [place] Address [address] [place] [address] Care Team Providers Care Nougat Cutter Machine Name Role Phone Rosalio RAMIREZ, Vivek Primary Care Provider Unavaila Bailey Rajput Unavailable [phone] Allergies Allergen (clinical drug ingredient) Drug/Non Drug [...] X ray : Foot, left 3V 04/01/2013 36784-Yeuh Destruction, -08/01/2011 07210-Euhr Destruction, 06-0408/22/2011 48587-Gxpi Destruction, 06-0409/26/2011 84914-Wgyn Destruction, 06-0411/03/2011 65527-Kdly Destruction, 06-0404/01/2013 41784- Debride <25 sq cm 05/24/2013 72294, J0702- Neuroma/Injection 08/24/19 14 64059- Biopsy of skin lesion 05/03/2013 Insurance Providers Payer Name Payer Address Payer Phone Subscriber Number Group Number Insured Name Patient Relationship to Insured Coverage Start Date Coverage End Date [employer] [place] [employer] [address] [place] [address] [phone] Lindsey Castillo Self - patient is the insured Medical (General) History Medical History History ICD Code thyroid disorder mumps chicken pox Surgical History Surgery Date(Month/Year) section
--- OUTSIDE RECORDS SUMMARY | 2025-01-06 10:59 | XMS_ITS | Patient Health Record ---
Author Organization [facility] Address [address] [place] [id number] Care Team Providers Care Acute Care Clinical Nurse Specialist Name Role Phone Shiraz Sanchez Unavailable [phone] Reason For Referral No Information Plan Of Treatment No Information
== END 2025-01-06 11:04 | disposition home or self-care (01) ==
LOC: HO.HMCH 10:05
PROVIDERS: PCP Physician Assistant; Visit Provider Physician Assistant
DX: K58.2 Mixed irritable bowel syndrome (principal); E78.2 Mixed hyperlipidemia; H90.42 Sensorineural hearing loss, unilateral, left ear, with unrestricted hearing on the contralateral side; M81.0 Age-related osteoporosis without current pathological fracture; Z23 Encounter for immunization

== ENCOUNTER → 2025-01-06 10:05 | Outpatient (BNVA) | payer MEDICARE, SELFPAY | PROVIDERS: PCP Internal Medicine; Visit Provider Physician Assistant | DX: K21.9 Gastro-esophageal reflux disease without esophagitis (principal); M81.0 Age-related osteoporosis without current pathological fracture; E78.5 Hyperlipidemia, unspecified; K58.2 Mixed irritable bowel syndrome; E78.2 Mixed hyperlipidemia; H90.42 Sensorineural hearing loss, unilateral, left ear, with unrestricted hearing on the contralateral side; R10.9 Unspecified abdominal pain; Z23 Encounter for immunization; Z91.81 History of falling | CPT/HCPCS: 90471; 90714; 96127; 99212 ==

== ENCOUNTER 2025-01-30 10:04 | Outpatient (AMB) | payer MEDICARE, SELFPAY ==
--- OUTSIDE RECORDS SUMMARY | 2024-03-22 05:45 | XMS_ITS ---
Author Organization [facility] Address [address] [address] Care Team Providers Care Product Mgr Name Role Phone Vivek Santamaria Primary Care Provider UnavailTANNER Melendez Unavailable [phone] REASON FOR VISIT 4wk Encounters Encounter Location Date Provider Diagnosis [facility] [address] [address] 03/22/2024 TANNER GUSMAN Plan Of Treatment No Information Progress Notes * Nancie CASTILLONanciOB:1955 ( 69 yo F)Acc No.[id number]:03/22/2024 Progress Note Patient: Lindsey YIP Provider: Emiliano Morrison DPMali :1955 A ge:68 Y S ex:Female Date:03/22/2024 Phone: Address:[address] [place] [address] [id number] Pcp:Vivek Santamaria Subjective: * Chief Complaints: * 1 . 4wk. * Medical History: Objective: * Vitals: Assessment: Plan: * Treatment: * Billing Information: * Visit Code: * Procedure Codes: * Electronic signature of TAM GUSMAN D.P.M. on 01/30/2025 at 12:11 PM EDT Sign off status: Pending * Provider: Emiliano Morrison DPM Date: 05/22/2023 Generated for Kesha harper/Isa/eTjingsmitting on: 0 01/30/2025 12:11 PM EDT
--- NOTE | 2025-01-30 10:25 | A.OFFVIS_ITS ---
Vital Signs 01/30/25 10:26 Height 5 ft 3 in Weight 131 lb 6.328 oz BMI 23.3 BP 135/63 Blood Pressure Location Lt brachial Position Sitting Pulse 86 Intake Visit Reasons: 6 wks f/u IBS Intake Note: Lindsey presents in the office as a 6 week follow up of IBS. CC: She states that she tried taking x2 imipramine tablets but got really dizzy and hit her face on the floor requiring sutures. She is now taking only one tablet of the imipramine and is doing well. She reports that she is doing better and now is having more solid BMs. 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 Accompanied by: Self / Same As Patient Allergies acetaminophen (Percocet) Allergy (Unknown, Verified 01/30/25 10:29) pruritus Iodinated Contrast Media (CONTRAST, IV) Allergy (Unknown, Verified 01/30/25 10:29) DIZZY SPELLS oxycodone (From PERCOCET) Allergy (Unknown, Verified 01/30/25 10:29) ITCH HPI HPI 6 wks f/u IBS: Details: Assessment & Plan (1) Irritable bowel syndrome with both constipation and diarrhea: Code(s): K58.2 - Mixed irritable bowel syndrome Category: Medical (2) GERD (gastroesophageal reflux disease): Code(s): K21.9 - Gastro-esophageal reflux disease without esophagitis Category: Medical (3) Abdominal cramping: Code(s): R10.9 - Unspecified abdominal pain Category: Medical (4) Gluten enteropathy: Code(s): K90.41 - Non-celiac gluten sensitivity Category: Medical Plan had fever and likely GI virus, then Lindsey. Stopped Miralax and fiber, was taking imipramine in am (she thought we told her to do this, NO!), move to qhs, increase to 2 qhs. Ok to take bentyl - no s/e except dry mouth. Moving bowels better in general with TCA, likely this is coordinating peristalsis better. She still would have mild stomach ache qhs, so this is why the dose increase. ROV 6 weeks. Medications: Changed From imipramine HCl 10 mg PO BEDTIME 30 days 30 tabs 1RF R10.9 - Unspecified abdominal pain To imipramine HCl 20 mg (2 x 10 mg) PO BEDTIME 60 tabs 6RF 30 days R10.9 - Unspecified abdominal pain Refilled pantoprazole 20 mg PO DAILY 30 tabs 6RF K21.9 - Gastro-esophageal reflux disease without esophagitis Resumed dicyclomine 20 mg PO QID 120 tabs 6RF 30 days dicyclomine 20 mg PO QID 30 days 120 tabs 6RF TODAYS VISIT [facility] Medical History Physical exam Constipation Sinusitis Acute diarrhea Surgical History Hx of colonoscopy Family History Mother No problems noted. Father No problems noted. Social History Household Members: Spouse Housing: House Alcohol intake: current Alcohol intake frequency: holidays/special occasions only Patient Tobacco Use Status: Former Tobacco user Tobacco use type: Cigarette e-Cigarette/Vaping Use: Never Used Second Hand Smoke Exposure: Yes service: No Current occupational status: employed Cognitive needs: No Hearing needs: No Vision needs: Yes (Glasses) Review of Systems Const Denies fatigue, Denies fever(s), Denies night sweats, Denies poor appetite and Denies weight loss Eyes Details: glasses Reports requires corrective lenses ENT Reports Normal hearing present, Denies dental pain, Denies dysphagia, Reports dizziness, Denies hearing loss, Denies mouth pain, Denies odynophagia, Denies throat swelling, Denies tongue swelling and Reports other (Dentition adequate) Card Reports no additional complaints Resp Reports no additional complaints GI Details: Denies abdominal pain, Denies melena, Reports bloating, Denies hematochezia, Reports constipation, Reports GI cramping, Denies dysphagia, Denies excessive flatus, Denies early satiety, Reports heartburn, Reports diarrhea, Denies nausea, Denies odynophagia, Denies vomiting and Denies hematemesis Skin/Breast Denies pruritus, Denies lesions, Denies rash and Denies jaundice Neuro Reports Normal hearing present, Denies Abnormal speech present and Reports dizziness Endo Denies fatigue Aller/Immun Denies throat swelling and Denies tongue swelling Physical Exam Vital Signs: Last Vital Signs Pulse 86 01/30/25 10:26 BP 135/63 01/30/25 10:26 BMI result Body Mass Index 23.3 Const General: cooperative, no acute distress, well developed and well groomed Nutritional Appearance: average body habitus and well nourished Orientation/consciousness: oriented to person, oriented to place and oriented to time Limitations: No language barrier HEENT Head: Yes normocephalic and Yes atraumatic Eyes General: appearance normal, both eyes and all related structures Pupils: Equal, round and reactive pupils present Neck Neck: Yes normal visual inspection and Yes no lymphadenopathy Thyroid: Thyroid normal Resp Effort & Inspection: normal respiratory effort and able to speak in complete sentences Auscultation: clear to auscultation bilaterally Cardio Rate: regular rate Rhythm: regular rhythm Heart sounds: Normal, physiologic split S2 sound present Peripheral pulses: radial pulses present and posterior tibial pulses present GI Inspection: No distended and No Abdominal panniculus present Palpation (GI): Soft to palpation, nontender, no guarding, not rigid and No hepatosplenomegaly present Percussion: Yes normal to percussion Auscultation: normal bowel sounds Rectal Exam - Female: deferred Skin General skin exam: no rashes or lesions noted, turgor normal, skin not dry, no jaundice, No spider nevi and no striae Rashes: no rashes Nails: normal Neuro General: oriented to person, oriented to place and oriented to time Cranial nerves: Yes Equal, round and reactive pupils present and Yes Normal hearing present Speech: No Abnormal speech present Extrem General: Yes normal to inspection, No clubbing, No cyanosis and No edema Psych Appearance: grossly normal and well kempt Mental Status: mental status grossly normal Speech and movement: Normal speech and movement present Affect: normal affect Attitude: cooperative Thought process: Normal thought process present and not confabulating Thought content: Normal thought content present Insight: Good insight present (Psych) Judgement: Good judgement present (Psych) Assessment & Plan Assessment & Plan (1) GERD (gastroesophageal reflux disease): Code(s): K21.9 - Gastro-esophageal reflux disease without esophagitis Category: Medical (2) Irritable bowel syndrome with both constipation and diarrhea: Code(s): K58.2 - Mixed irritable bowel syndrome Category: Medical (3) Abdominal cramping: Code(s): R10.9 - Unspecified abdominal pain Category: Medical (4) Gluten enteropathy: Code(s): K90.41 - Non-celiac gluten sensitivity Category: Medical Plan Her current GI regimen is pantoprazole, simethicone and imipramine 10 mg at night. - The patient is a 69-year-old female presenting for continued management of IBS and GERD. - we tried to increase imipramine from 10 mg at night to 20 mg however this led to nervousness, shakiness, dizziness, and head trauma with nasal laceration. She was bending over to put her dog on the porch and got dizzy and fell forward. - ER visit concluded no anemia, high glucose levels likely due to recent alimentary intake. - her back and forth bowel movements from diarrhea to constipation have improved considerably with the 10 mg of imipramine and since stopping MiraLax. - Dry mouth symptomatic of Imipramine, using gum and increased hydration as measures. - Continues Pantoprazole, controlled GERD symptoms. - Recurrent dizziness but improved since curtailing the dosage of Imipramine. Return office visit in 6 months Medications: Refilled pantoprazole 20 mg PO DAILY 30 tabs 6RF K21.9 - Gastro-esophageal reflux dise ase without esophagitis On Hold polyethylene glycol 3350 (Miralax) Hold Comment: Doctor's Order 17 grams PO BID 30 days 1,020 grams 6RF K59. 00 - Constipation, unspecified Coding Level of Care Code Est Pt Level 3 (26672) Diagnoses GERD (gastroesophageal reflux disease) K21.9 Irritable bowel syndrome with both constipation and diarrhea K58.2 Abdominal cramping R10.9 Gluten enteropathy K90.41
[2025-01-30 10:26] VITALS: BP 135/63; PULSE 86; BMI 23.3
--- OUTSIDE RECORDS SUMMARY | 2025-01-30 12:11 | XMS_ITS | Patient Health Record ---
Author Organization [facility] Address [address] [place] [address] Care Team Providers Care Brusher Machine Name Role Phone Shiraz Sanchez Unavailable [phone] Reason For Referral No Information Plan Of Treatment No Information
--- OUTSIDE RECORDS SUMMARY | 2025-01-30 12:11 | XMS_ITS | Patient Health Record ---
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 Problem Plantar fasciitis (534665979) Plantar fasciitis (M72.2) Active confirmed Problem Lumbosacral radiculopathy (8955139) Lumbosacral radiculopathy at L5 (M54.17) Active confirmed Problem Tarsal coalition of right foot (6357743158943679 5) 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 Vital Signs Heart Rate 79 /min 03/29/2024 Temperature 96.5 degrees Fahrenheit 03/29/2024 Respiratory Rate 16 /min 03/29/2024 Height 5ft 2in in 03/29/2024 Weight 141.2 lbs 03/29/2024 BMI 25.82 kg/m2 03/29/2024 Procedures Procedure Date Ordered Date Performed Result Body Sit e INJ TENDON SHEATH/LIGAMENT/FASCIA 02/23/2024 N/ A DRAIN/INJECT, INTERMEDIATE JOINT/BURSA 02/23/2024 N/A AFO ANK GAUNTLT PREFAB W/FIT&ADJ 02/23/2024 N/A Encounters Encounter Location Date Provider Diagnosis [facility] [address] 02/23/2024 TANNER NASEEM Pain of right heel M79.671 ; Tarsal coalition of right foot Q66.89 ; Osteoarthritis of right subtalar joint M19.071 and Plantar fasciitis M72.2 [facility] [address] 03/29/2024 TANNER NASEEM Pain of right heel M79.671 ; Tarsal coalition of right foot Q66.89 ; Osteoarthritis of right subtalar joint M19.071 ; Plantar fasciitis M72.2 and Lumbosacral radiculopathy at L5 M54.17 [facility] [address] 03/29/2024 TANNER NASEEM Assessments Encounter Date [...] [address] [place] [address] [phone] [id number] Lindsey Castillo Self - patient is the [...]
--- OUTSIDE RECORDS SUMMARY | 2025-01-30 12:12 | XMS_ITS | Patient Health Record ---
[facility] [place] Address [address] [place] [address] Care Team Providers Care Cloth Cutting Inspector Name Role Phone Rosalio RAMIREZ, Vivek Primary Care Provider Unavaila ble Bailey Márquez Unavailable [phone] Allergies Allergen (clinical drug ingredient) Drug/Non Drug [...] X ray : Foot, left 3V 04/01/2013 19126-Esnj Destruction, -08/01/2011 50898-Opes Destruction, 06-0408/22/2011 19404-Foqg Destruction, 06-0409/26/2011 46126-Xslq Destruction, 06-0411/03/2011 29482-Qcmo Destruction, 06-0404/01/2013 37981- Debride <25 sq cm 05/24/2013 89300, J0702- Neuroma/Injection 08/24/19 14 23302- Biopsy of skin lesion 05/03/2013 Insurance Providers Payer Name Payer Address Payer Phone Subscriber Number Group Number Insured Name Patient Relationship to Insured Coverage Start Date Coverage End Date [employer] [place] [employer] [address] [place] [address] [phone] Lindsey Castillo Self - patient is the insured Medical (General) History Medical History History ICD Code thyroid disorder mumps chicken pox Surgical History Surgery Date(Month/Year) section
== END 2025-01-30 11:24 | disposition home or self-care (01) ==
LOC: HO.HGI 10:05
PROVIDERS: PCP Internal Medicine; Visit Provider Nurse Practitioner
DX: K21.9 Gastro-esophageal reflux disease without esophagitis (principal); K58.2 Mixed irritable bowel syndrome; R10.9 Unspecified abdominal pain; K90.41 Non-celiac gluten sensitivity
CPT/HCPCS: 99213

== ENCOUNTER → 2025-01-30 10:04 | Outpatient (BNVA) | payer MEDICARE, SELFPAY | PROVIDERS: PCP Internal Medicine; Visit Provider Nurse Practitioner | DX: K58.2 Mixed irritable bowel syndrome (principal); K21.9 Gastro-esophageal reflux disease without esophagitis; R10.9 Unspecified abdominal pain; K90.41 Non-celiac gluten sensitivity | CPT/HCPCS: 99212 ==